=== PATIENT | female | born 1980 | race Two or more races ===

== ENCOUNTER 2024-11-04 14:34 | Inpatient (IN) | payer OTHER ==
[~2024-11-04] VITALS: Ht 160 cm; Wt 34.0 kg
[2024-11-04] VITALS (7 sets, daily range): BP systolic 144–156; BP diastolic 103–120; TEMP 98; O2SAT 94–99
[2024-11-04] MEDS: IV NS 0.9% 1,000 ML BAG IV ONE (15:07)
[2024-11-04] MEDS ORDERED: ACETAMINOPHEN ES 500 MG TABLET ONE (15:09)
[2024-11-04] MEDS: ACETAMINOPHEN ES 500 MG TABLET PO ONE (15:16)
[2024-11-04] MEDS: CEFEPIME 1 GM in IV D5W 50 ML IV ONE (15:56)
[2024-11-04] MEDS: VANCOMYCIN 1 GM in IV D5W 250 ML IV ONE (16:09)
[2024-11-04 16:13] LABS: CALCIUM, SERUM 8.0 mg/dL (8.5-10.1); CREATININE 2.0 mg/dL (0.6-1.3); SODIUM SERUM 129 mmol/L (136-145); UREA NITROGEN, BLOOD 33 mg/dL (7-18)
[2024-11-04 16:19] LABS: ASPARTATE AMINOTRANSFERASE 43 U/L (15-37); TOTAL PROTEIN, SERUM 7.3 g/dL (6.4-8.2)
[2024-11-04 16:38] LABS: ABG BASE EXCESS -1.8 mmol/L (-2.0-3.0); ABG OXYGEN SATURATION 97.5 % (94.0-98.0); ABG PCO2 34.2 mmHg (32.0-45.0); ABG PH 7.430 (7.350-7.450); ABG PO2 106.3 mmHg (83.0-108.0); ABG TOTAL HEMOGLOBIN 7.8 G/dL (12.0-16.0); FRACTIONATED INSPIRED OXYGEN 45.0 %; SET RATE, BG 26.0
[2024-11-04 16:48] LABS: PLATELET COUNT (AUTO) 618 K/uL (150-450); RED BLOOD CELL COUNT(AUTO) 5.45 MIL/uL (4.0-5.2); RED CELL DISTRIBUTION WIDTH 27.0 % (11.5-15.0); WHITE BLOOD COUNT (AUTO) 15.0 K/uL (4.3-11.0)
[2024-11-04] MEDS ORDERED: DOSING PER PHARMACY-CEFEPIME IVPB XX PRN (17:30)
[2024-11-04] MEDS ORDERED: ACETAMINOPHEN 325 MG TABLET PO PRN (17:30)
[2024-11-04] MEDS ORDERED: DOSING PER PHARMACY-VANCOMYCIN IV XX PRN (17:30)
[2024-11-04] MEDS ORDERED: MAGNESIUM HYDROXIDE 30 ML UDC PO PRN (17:30)
[2024-11-04] MEDS ORDERED: IV NS 0.9% 1,000 ML IV PRN (17:30)
[2024-11-04] MEDS ORDERED: IPRATROPIUM NEB FS 0.5 MG/2.5 ML AMPUL.NEB NEB PRN (17:30)
[2024-11-04 17:34] LABS: EOSINOPHILS % (MANUAL) 1 % (0-4); LYMPHOCYTES % (MANUAL) 5 % (16-48); MONOCYTES % (MANUAL) 5 % (0-11.0); NEUTROPHILS % (MANUAL) 89 (42-76); PLATELET ESTIMATE INCREASED
[2024-11-04] MEDS: HEPARIN SODIUM, PORCINE 5000 UNITS/1 ML VIAL SQ SCH (20:51)
[2024-11-04] MEDS ORDERED: FUROSEMIDE 20 MG/2 ML VIAL IV SCH (21:00)
[2024-11-04] MEDS: LORAZEPAM INJ 2 MG/ML VIAL IV PRN (23:20)
[2024-11-05] VITALS (34 sets, daily range): BP systolic 123–156; BP diastolic 94–116; TEMP 97.4–100.1; O2SAT 95–100
[2024-11-05] MEDS ORDERED: NICOTINE PATCH (21MG) 21 MG PATCH.TD24 TD SCH (00:30)
[2024-11-05 00:37] LABS: ABG BASE EXCESS -2.1 mmol/L (-2.0-3.0); ABG OXYGEN SATURATION 99.7 % (94.0-98.0); ABG PCO2 40.5 mmHg (32.0-45.0); ABG PH 7.372 (7.350-7.450); ABG PO2 249.5 mmHg (83.0-108.0); ABG TOTAL HEMOGLOBIN 8.9 G/dL (12.0-16.0); SET RATE, BG 24.0; SITE, ABG LEFT HEEL
[2024-11-05] MEDS: NICOTINE PATCH (21MG) 21 MG PATCH.TD24 TD ONE (00:40)
[2024-11-05 04:41] LABS: PLATELET COUNT (AUTO) 658 K/uL (150-450); RED BLOOD CELL COUNT(AUTO) 5.94 MIL/uL (4.0-5.2); RED CELL DISTRIBUTION WIDTH 27.1 % (11.5-15.0); WHITE BLOOD COUNT (AUTO) 16.0 K/uL (4.3-11.0)
[2024-11-05 05:02] LABS: ASPARTATE AMINOTRANSFERASE 32 U/L (15-37); CALCIUM, SERUM 8.6 mg/dL (8.5-10.1); CREATININE 2.5 mg/dL (0.6-1.3); PHOSPHORUS 5.6 mg/dL (2.5-4.9); SODIUM SERUM 134 mmol/L (136-145); TOTAL PROTEIN, SERUM 7.6 g/dL (6.4-8.2); UREA NITROGEN, BLOOD 37 mg/dL (7-18)
[2024-11-05 05:25] LABS: LYMPHOCYTES % (MANUAL) 6 % (16-48); MONOCYTES % (MANUAL) 2 % (0-11.0); NEUTROPHILS % (MANUAL) 92 (42-76)
[2024-11-05 05:26] LABS: PLATELET ESTIMATE INCREASED
[2024-11-05 05:28] LABS: NT-PRO BNP > 25000 pg/mL (0-125)
[2024-11-05 05:32] LABS: ABG BASE EXCESS -3.0 mmol/L (-2.0-3.0); ABG OXYGEN SATURATION 96.6 % (94.0-98.0); ABG PCO2 33.7 mmHg (32.0-45.0); ABG PH 7.415 (7.350-7.450); ABG PO2 88.9 mmHg (83.0-108.0); ABG TOTAL HEMOGLOBIN 8.5 G/dL (12.0-16.0); SET RATE, BG 24.0
[2024-11-05] MEDS ORDERED: LEVALBUTEROL HCL NEB 1.25 MG/0.5 ML VIAL.NEB NEB PRN (08:30)
[2024-11-05] MEDS ORDERED: IPRATROPIUM NEB FS 0.5 MG/2.5 ML AMPUL.NEB NEB PRN (08:30)
[2024-11-05] MEDS: PANTOPRAZOLE 40 MG VIAL IV SCH (08:35)
[2024-11-05 09:29] LABS: ABG BASE EXCESS -4.8 mmol/L (-2.0-3.0); ABG OXYGEN SATURATION 96.5 % (94.0-98.0); ABG PCO2 32.2 mmHg (32.0-45.0); ABG PH 7.398 (7.350-7.450); ABG PO2 92.7 mmHg (83.0-108.0); ABG TOTAL HEMOGLOBIN 8.5 G/dL (12.0-16.0); FRACTIONATED INSPIRED OXYGEN 50.0 %; SET RATE, BG 24.0; SITE, ABG RIGHT RADIAL
[2024-11-05 10:14] LABS: IRON, SERUM 8.0 ug/dl (50-175)
[2024-11-05] MEDS: FUROSEMIDE 40 MG/4 ML VIAL IV SCH (10:59)
[2024-11-05] MEDS: IPRATROPIUM NEB FS 0.5 MG/2.5 ML AMPUL.NEB NEB SCH (12:00)
[2024-11-05] MEDS: ACETAMINOPHEN 650 MG/20.3 ML UDC NG PRN (12:02)
[2024-11-05] MEDS: FAMOTIDINE/PF INJ 20 MG/2 ML VIAL IV SCH (12:24)
[2024-11-05] MEDS: LEVALBUTEROL HCL NEB 1.25 MG/0.5 ML VIAL.NEB NEB SCH (14:34)
[2024-11-05] MEDS: VANCOMYCIN 750 MG in IV D5W 250 ML IV SCH (15:26)
[2024-11-05 15:47] LABS: CALCIUM, SERUM 8.6 mg/dL (8.5-10.1); CREATININE 2.6 mg/dL (0.6-1.3); SODIUM SERUM 134.0 mmol/L (136-145); UREA NITROGEN, BLOOD 45.0 mg/dL (7-18)
[2024-11-05] MEDS ORDERED: VANCOMYCIN 1 GM in IV D5W 250ml IV SCH (16:00)
[2024-11-05 16:01] LABS: CREATININE, URINE 76.7 MG/DL (30.0-125.0); URINE SODIUM, RANDOM 72.0 mmol/l (40-220); URINE TOTAL PROTEIN 204.4 mg/dL (0-11.9)
[2024-11-05 16:04] LABS: APPEARANCE,URINE SLIGHTLY CLOUDY (CLEAR); BLOOD, URINE 2+ Ery/uL (NEGATIVE); LEUKOCYTE ESTERASE ,URINE NEGATIVE (NEGATIVE); NITRITE, URINE NEGATIVE (NEGATIVE); UGLUCOSE NEGATIVE (NEGATIVE)
[2024-11-05 16:16] LABS: SQUAMOUS EPITHELIAL CELL,UR Few /HPF (None Seen)
[2024-11-05 16:17] LABS: ADD URINE CULTURE NO; URINE AMORPHOUS URATE Moderate /HPF (None Seen)
[2024-11-05] MEDS: CEFEPIME 2 GM in IV D5W 100 ML IV SCH (16:25)
[2024-11-05 17:00] LABS: EOSINOPHIL,URINE None Seen
[2024-11-05] MEDS ORDERED: CEFEPIME 1 GM in IV D5W 50 ML IV SCH (17:00)
[2024-11-05 17:41] LABS: FIBRINOGEN ACTIVITY 338.0 Mg/dL (213-485); INR 1.15 (0.91-1.10)
[2024-11-06] VITALS (52 sets, daily range): BP systolic 125–155; BP diastolic 68–113; TEMP 97.4–99; O2SAT 96–100
[2024-11-06 02:57] LABS: ABG BASE EXCESS -11.3 mmol/L (-2.0-3.0); ABG OXYGEN SATURATION 92.7 % (94.0-98.0); ABG PCO2 37.9 mmHg (32.0-45.0); ABG PH 7.227 (7.350-7.450); ABG PO2 83.7 mmHg (83.0-108.0); ABG TOTAL HEMOGLOBIN 9.2 G/dL (12.0-16.0); SET RATE, BG 24.0; SITE, ABG RIGHT BRACHIAL
[2024-11-06] MEDS: FUROSEMIDE 40 MG/4 ML VIAL ONE (03:29)
[2024-11-06] MEDS: ALBUTEROL FS 2.5 MG/0.5 ML VIAL.NEB NEB ONE (03:32)
[2024-11-06] MEDS: FUROSEMIDE 40 MG/4 ML VIAL IV ONE (03:38)
[2024-11-06] MEDS: ALBUTEROL FS 2.5 MG/3 ML VIAL.NEB NEB PRN (03:45)
[2024-11-06 04:56] LABS: FIBRINOGEN ACTIVITY 434.0 Mg/dL (213-485); INR 1.19 (0.91-1.10)
[2024-11-06 04:56] LABS: PLATELET COUNT (AUTO) 667 K/uL (150-450); RED BLOOD CELL COUNT(AUTO) 5.69 MIL/uL (4.0-5.2); RED CELL DISTRIBUTION WIDTH 27.8 % (11.5-15.0); WHITE BLOOD COUNT (AUTO) 15.3 K/uL (4.3-11.0)
[2024-11-06 05:02] LABS: ASPARTATE AMINOTRANSFERASE 32.0 U/L (15-37); CALCIUM, SERUM 8.6 mg/dL (8.5-10.1); CREATININE 3.5 mg/dL (0.6-1.3); SODIUM SERUM 134.0 mmol/L (136-145); TOTAL PROTEIN, SERUM 7.9 g/dL (6.4-8.2); UREA NITROGEN, BLOOD 57.0 mg/dL (7-18)
[2024-11-06 05:35] LABS: PHOSPHORUS 10.1 mg/dL (2.5-4.9)
[2024-11-06 05:49] LABS: CREATINE KINASE, TOTAL 25.0 U/L (26-192)
[2024-11-06 05:50] LABS: BAND % (MANUAL) 5 % (0.0-5.0); BASOPHILS % (MANUAL) 1 % (0.0-2.0); LYMPHOCYTES % (MANUAL) 7 % (16-48); METAMYELOCYTES % 1 % (0-0); MONOCYTES % (MANUAL) 4 % (0-11.0); NEUTROPHILS % (MANUAL) 82 (42-76); NUCLEATED RED BLOOD CELLS 1.0 /100WBC (0.0-0.0); PLATELET ESTIMATE INCREASED
[2024-11-06 06:32] LABS: ABG BASE EXCESS -8.0 mmol/L (-2.0-3.0); ABG OXYGEN SATURATION 93.8 % (94.0-98.0); ABG PCO2 31.0 mmHg (32.0-45.0); ABG PH 7.349 (7.350-7.450); ABG PO2 83.0 mmHg (83.0-108.0); ABG TOTAL HEMOGLOBIN 8.7 G/dL (12.0-16.0); SET RATE, BG 24.0; SITE, ABG RIGHT BRACHIAL
[2024-11-06 08:13] LABS: FREE KAPPA LT CHAINS SERUM 291.5 mg/L (3.3-19.4); FREE LAMBDA LT CHAIN SERUM 225.4 mg/L (5.7-26.3); IMMUNOGLOBULIN A, SERUM 345 mg/dL (87-352); IMMUNOGLOBULIN M, SERUM 320 mg/dL (26-217); KAPPA/LAMBDA RATIO SERUM 1.29 (0.26-1.65)
[2024-11-06 09:07] LABS: FOLIC ACID 4.8 ng/mL (>3.0)
[2024-11-06] MEDS: DOBUTamine 500 MG in IV D5W 210 ML IV SCH (09:52)
[2024-11-06] MEDS: PROPOFOL 100 ML IV PRN (09:53)
[2024-11-06] MEDS ORDERED: ETOMIDATE 2 MG/ML VIAL IV ONE (13:32)
[2024-11-06] MEDS ORDERED: SUCCINYLCHOLINE CHLORIDE 20 MG/ML VIAL IV ONE (13:32)
[2024-11-06] MEDS: BUMETANIDE INJ 4 MG in IV NS 0.9% 24 ML IV ONE (16:25)
[2024-11-06 17:04] LABS: PLATELET COUNT (AUTO) 563 K/uL (150-450); RED BLOOD CELL COUNT(AUTO) 5.69 MIL/uL (4.0-5.2); RED CELL DISTRIBUTION WIDTH 27.7 % (11.5-15.0); WHITE BLOOD COUNT (AUTO) 14.6 K/uL (4.3-11.0)
[2024-11-06 17:21] LABS: ASPARTATE AMINOTRANSFERASE 27.0 U/L (15-37); CALCIUM, SERUM 6.2 mg/dL (8.5-10.1); CREATININE 3.1 mg/dL (0.6-1.3); PHOSPHORUS 6.7 mg/dL (2.5-4.9); SODIUM SERUM 139.0 mmol/L (136-145); TOTAL PROTEIN, SERUM 6.0 g/dL (6.4-8.2); UREA NITROGEN, BLOOD 63.0 mg/dL (7-18)
[2024-11-06 18:03] LABS: BAND % (MANUAL) 2 % (0.0-5.0); METAMYELOCYTES % 1 % (0-0); MONOCYTES % (MANUAL) 4 % (0-11.0)
[2024-11-06 18:04] LABS: LYMPHOCYTES % (MANUAL) 8 % (16-48); NEUTROPHILS % (MANUAL) 85 (42-76); PLATELET ESTIMATE INCREASED
[2024-11-06] MEDS: Magnesium 1GM/D5W 100ML PREMIX 100 ML IV SCH (18:39)
[2024-11-06] MEDS: SODIUM BICARBONATE SYR 50 MEQ/50 ML DISP.SYRIN IV ONE (21:01)
[2024-11-07] VITALS (87 sets, daily range): BP systolic 108–178; BP diastolic 85–106; TEMP 98.9–100.2; O2SAT 90–100
[2024-11-07] MEDS ORDERED: VANCOMYCIN 750 MG in IV D5W 250 ML IV SCH (04:00)
[2024-11-07 05:35] LABS: PLATELET COUNT (AUTO) 688 K/uL (150-450); RED BLOOD CELL COUNT(AUTO) 5.47 MIL/uL (4.0-5.2); RED CELL DISTRIBUTION WIDTH 27.9 % (11.5-15.0); WHITE BLOOD COUNT (AUTO) 14.0 K/uL (4.3-11.0)
[2024-11-07 05:45] LABS: CALCIUM, SERUM 7.1 mg/dL (8.5-10.1); CREATININE 4.4 mg/dL (0.6-1.3); SODIUM SERUM 138.0 mmol/L (136-145)
[2024-11-07 06:00] LABS: FIBRINOGEN ACTIVITY 329.0 Mg/dL (213-485); INR 1.14 (0.91-1.10)
[2024-11-07 06:22] LABS: PHOSPHORUS 8.2 mg/dL (2.5-4.9); UREA NITROGEN, BLOOD 88.0 mg/dL (7-18)
[2024-11-07] MEDS: INSULIN REGULAR, HUMAN 100 UNIT/ML 10 ML VIAL IV ONE (08:30)
[2024-11-07 08:31] LABS: EOSINOPHILS % (MANUAL) 2 % (0-4); LYMPHOCYTES % (MANUAL) 4 % (16-48); MONOCYTES % (MANUAL) 15 % (0-11.0); NEUTROPHILS % (MANUAL) 79 (42-76)
[2024-11-07 08:32] LABS: PLATELET ESTIMATE INCREASED
[2024-11-07] MEDS: DEXTROSE 50%-WATER 50 ML DISP.SYRIN IVP ONE (09:35)
[2024-11-07] MEDS: SODIUM BICARBONATE SYR 50 MEQ/50 ML DISP.SYRIN IV ONE (09:36)
[2024-11-07 10:25] LABS: ABG BASE EXCESS -5.2 mmol/L (-2.0-3.0); ABG OXYGEN SATURATION 96.0 % (94.0-98.0); ABG PCO2 32.2 mmHg (32.0-45.0); ABG PH 7.392 (7.350-7.450); ABG PO2 94.9 mmHg (83.0-108.0); ABG TOTAL HEMOGLOBIN 7.5 G/dL (12.0-16.0); FRACTIONATED INSPIRED OXYGEN 70.0 %; SET RATE, BG 20.0; VT, ABG 425 mL
[2024-11-07 11:11] LABS: PTH, INTACT 149 pg/mL (15-65)
[2024-11-07] MEDS: PROPOFOL 100 ML IV PRN ×2 (11:58→19:00)
[2024-11-07] MEDS: VANCOMYCIN POST DIALYSIS 500MG IV PRN (19:11)
[2024-11-08] VITALS (95 sets, daily range): BP systolic 116–141; BP diastolic 76–105; TEMP 98–99.5; O2SAT 60–100
[2024-11-08 05:12] LABS: PLATELET COUNT (AUTO) 617 K/uL (150-450); RED BLOOD CELL COUNT(AUTO) 5.01 MIL/uL (4.0-5.2); RED CELL DISTRIBUTION WIDTH 27.2 % (11.5-15.0); WHITE BLOOD COUNT (AUTO) 18.5 K/uL (4.3-11.0)
[2024-11-08 05:18] LABS: CALCIUM, SERUM 7.6 mg/dL (8.5-10.1); CREATININE 4.1 mg/dL (0.6-1.3); SODIUM SERUM 138.0 mmol/L (136-145); UREA NITROGEN, BLOOD 68.0 mg/dL (7-18)
[2024-11-08 05:24] LABS: PHOSPHORUS 7.0 mg/dL (2.5-4.9)
[2024-11-08 06:12] LABS: NUCLEATED RED BLOOD CELLS 10.0 /100WBC (0.0-0.0)
[2024-11-08 06:13] LABS: EOSINOPHILS % (MANUAL) 2 % (0-4); LYMPHOCYTES % (MANUAL) 10 % (16-48); METAMYELOCYTES % 1 % (0-0)
[2024-11-08 06:14] LABS: MONOCYTES % (MANUAL) 13 % (0-11.0); NEUTROPHILS % (MANUAL) 74 (42-76)
[2024-11-08 06:15] LABS: PLATELET ESTIMATE INCREASED
[2024-11-08] MEDS: FENTANYL CITRAT IV 2,500 MCG in IV NS 0.9% 200 ML IV PRN ×2 (09:57→20:00)
[2024-11-08] MEDS ORDERED: MIDAZOLAM HCL 200 MG in IV NS 0.9% 60 ML IV PRN (10:00)
[2024-11-08] MEDS: MIDAZOLAM HCL 100 MG in IV NS 0.9% 80 ML IV PRN (11:18)
[2024-11-08 16:50] LABS: ABG BASE EXCESS -5.5 mmol/L (-2.0-3.0); ABG OXYGEN SATURATION 98.9 % (94.0-98.0); ABG PCO2 30.1 mmHg (32.0-45.0); ABG PH 7.408 (7.350-7.450); ABG PO2 171.0 mmHg (83.0-108.0); ABG TOTAL HEMOGLOBIN 7.0 G/dL (12.0-16.0); FRACTIONATED INSPIRED OXYGEN 60.0 %; PEEP,BG 8 cm H2O; SET RATE, BG 20.0; SITE, ABG LEFT RADIAL; VT, ABG 400 mL
[2024-11-08] MEDS: PRECEDEX 400 MCG/100 ML BOTTLE 100 ML IV PRN (18:02)
[2024-11-08] MEDS: LORAZEPAM INJ 2 MG/ML VIAL IV PRN (21:51)
[2024-11-09] VITALS (94 sets, daily range): BP systolic 111–137; BP diastolic 79–101; TEMP 98.2–100.3; O2SAT 94–97
[2024-11-09] MEDS ORDERED: MIDAZOLAM 50 MG/10 ML VIAL ONE (00:12)
[2024-11-09] MEDS: MIDAZOLAM HCL 50 MG in IV NS 0.9% 40 ML IV ONE (01:08)
[2024-11-09 02:07] LABS: HEPATITIS B SURFACE AB (QUAL) Non Reactive (.)
[2024-11-09 04:55] LABS: ASPARTATE AMINOTRANSFERASE 34.0 U/L (15-37); CALCIUM, SERUM 7.8 mg/dL (8.5-10.1); CREATININE 5.5 mg/dL (0.6-1.3); PHOSPHORUS 7.8 mg/dL (2.5-4.9); SODIUM SERUM 137.0 mmol/L (136-145); TOTAL PROTEIN, SERUM 7.2 g/dL (6.4-8.2)
[2024-11-09 05:13] LABS: UREA NITROGEN, BLOOD 96.0 mg/dL (7-18)
[2024-11-09 07:27] LABS: PLATELET COUNT (AUTO) 555 K/uL (150-450); RED BLOOD CELL COUNT(AUTO) 4.86 MIL/uL (4.0-5.2); RED CELL DISTRIBUTION WIDTH 26.5 % (11.5-15.0); WHITE BLOOD COUNT (AUTO) 21.3 K/uL (4.3-11.0)
[2024-11-09] MEDS ORDERED: DEXTROSE 50%-WATER 50 ML DISP.SYRIN IV PRN (10:00)
[2024-11-09] MEDS: BLOOD SUGAR DIAGNOSTIC 1 EACH STRIP IN SCH (10:35)
[2024-11-09] MEDS: DEXTROSE 50%-WATER 50 ML DISP.SYRIN IVP ONE (10:35)
[2024-11-09] MEDS: SODIUM BICARBONATE SYR 50 MEQ/50 ML DISP.SYRIN IV ONE (10:35)
[2024-11-09] MEDS: INSULIN REGULAR, HUMAN 100 UNIT/ML 10 ML VIAL IV ONE (11:16)
[2024-11-09 11:18] LABS: CALCIUM, SERUM 7.4 mg/dL (8.5-10.1); CREATININE 6.0 mg/dL (0.6-1.3); SODIUM SERUM 139.0 mmol/L (136-145)
[2024-11-09] MEDS: ACETAMINOPHEN 650 MG/SUPP.RECT RC PRN (11:27)
[2024-11-09 11:48] LABS: UREA NITROGEN, BLOOD 116.0 mg/dL (7-18)
[2024-11-09] MEDS: NEPRO 1,000 ML BOTTLE GT PRN (16:28)
[2024-11-09 17:38] LABS: LYMPHOCYTES % (MANUAL) 4 % (16-48); NEUTROPHILS % (MANUAL) 80 (42-76)
[2024-11-09 17:57] LABS: MONOCYTES % (MANUAL) 16 % (0-11.0); PLATELET ESTIMATE INCREASED
[2024-11-09] MEDS: CEFEPIME 1 GM in IV D5W 50 ML IV SCH (17:57)
[2024-11-09] MEDS: MIDAZOLAM HCL 100 MG in IV NS 0.9% 80 ML IV PRN (20:58)
[2024-11-10] VITALS (63 sets, daily range): BP systolic 122–148; BP diastolic 98–111; TEMP 97.8–99.5; O2SAT 95–99
[2024-11-10 04:58] LABS: PLATELET COUNT (AUTO) 432 K/uL (150-450); RED BLOOD CELL COUNT(AUTO) 5.29 MIL/uL (4.0-5.2); RED CELL DISTRIBUTION WIDTH 34.2 % (11.5-15.0); WHITE BLOOD COUNT (AUTO) 27.7 K/uL (4.3-11.0)
[2024-11-10 05:16] LABS: FIBRINOGEN ACTIVITY 280.0 Mg/dL (213-485); INR 1.07 (0.91-1.10)
[2024-11-10 05:42] LABS: ASPARTATE AMINOTRANSFERASE 55.0 U/L (15-37); CALCIUM, SERUM 8.6 mg/dL (8.5-10.1); CREATININE 3.5 mg/dL (0.6-1.3); PHOSPHORUS 6.8 mg/dL (2.5-4.9); SODIUM SERUM 138.0 mmol/L (136-145); TOTAL PROTEIN, SERUM 7.3 g/dL (6.4-8.2); UREA NITROGEN, BLOOD 54.0 mg/dL (7-18)
[2024-11-10 05:45] LABS: LYMPHOCYTES % (MANUAL) 44 % (16-48); MONOCYTES % (MANUAL) 4 % (0-11.0); NEUTROPHILS % (MANUAL) 52 (42-76); NUCLEATED RED BLOOD CELLS 28.0 /100WBC (0.0-0.0); PLATELET ESTIMATE INCREASED
[2024-11-10 08:58] LABS: ABG BASE EXCESS 0.2 mmol/L (-2.0-3.0); ABG OXYGEN SATURATION 92.9 % (94.0-98.0); ABG PCO2 33.8 mmHg (32.0-45.0); ABG PH 7.463 (7.350-7.450); ABG PO2 71.8 mmHg (83.0-108.0); ABG TOTAL HEMOGLOBIN 9.2 G/dL (12.0-16.0); FRACTIONATED INSPIRED OXYGEN 55.0 %; PEEP,BG 5 cm H2O; SET RATE, BG 20.0; VT, ABG 400 mL
[2024-11-10 09:02] LABS: SITE, ABG RIGHT RADIAL
[2024-11-11] VITALS (46 sets, daily range): BP systolic 126–153; BP diastolic 95–110; TEMP 98.1–100.4; O2SAT 55–100
[2024-11-11 03:07] LABS: HEPATITIS B CORE AB, IgM Negative (Negative); HEPATITIS B CORE AB, TOTAL Negative (Negative); HEPATITIS B SURFACE AB (QUAL) Non Reactive (.)
[2024-11-11 04:10] LABS: PLATELET COUNT (AUTO) 397 K/uL (150-450); RED BLOOD CELL COUNT(AUTO) 5.34 MIL/uL (4.0-5.2); RED CELL DISTRIBUTION WIDTH 35.4 % (11.5-15.0); WHITE BLOOD COUNT (AUTO) 28.9 K/uL (4.3-11.0)
[2024-11-11 04:19] LABS: CALCIUM, SERUM 8.8 mg/dL (8.5-10.1); CREATININE 2.9 mg/dL (0.6-1.3); SODIUM SERUM 139.0 mmol/L (136-145); UREA NITROGEN, BLOOD 64.0 mg/dL (7-18)
[2024-11-11 04:37] LABS: FIBRINOGEN ACTIVITY 321.0 Mg/dL (213-485); INR 1.13 (0.91-1.10)
[2024-11-11 05:39] LABS: NUCLEATED RED BLOOD CELLS 27.0 /100WBC (0.0-0.0)
[2024-11-11 05:40] LABS: NEUTROPHILS % (MANUAL) 90 (42-76)
[2024-11-11 05:41] LABS: LYMPHOCYTES % (MANUAL) 5 % (16-48); MONOCYTES % (MANUAL) 5 % (0-11.0)
[2024-11-11 05:45] LABS: PLATELET ESTIMATE INCREASED
[2024-11-11] MEDS: MIDAZOLAM HCL 100 MG in IV NS 0.9% 80 ML IV PRN (20:36)
[2024-11-12] VITALS (77 sets, daily range): BP systolic 114–141; BP diastolic 86–105; TEMP 97.7–102.8; O2SAT 95–100
[2024-11-12 05:15] LABS: PLATELET COUNT (AUTO) 340 K/uL (150-450); RED BLOOD CELL COUNT(AUTO) 5.08 MIL/uL (4.0-5.2); RED CELL DISTRIBUTION WIDTH 35.2 % (11.5-15.0)
[2024-11-12 05:26] LABS: WHITE BLOOD COUNT (AUTO) 33.7 K/uL (4.3-11.0)
[2024-11-12 05:30] LABS: FIBRINOGEN ACTIVITY 439.0 Mg/dL (213-485); INR 1.21 (0.91-1.10)
[2024-11-12 05:43] LABS: ASPARTATE AMINOTRANSFERASE 61.0 U/L (15-37); CALCIUM, SERUM 9.2 mg/dL (8.5-10.1); CREATININE 2.9 mg/dL (0.6-1.3); PHOSPHORUS 5.2 mg/dL (2.5-4.9); SODIUM SERUM 140.0 mmol/L (136-145); TOTAL PROTEIN, SERUM 7.4 g/dL (6.4-8.2); UREA NITROGEN, BLOOD 67.0 mg/dL (7-18)
[2024-11-12 05:53] LABS: NEUTROPHILS % (MANUAL) 91 (42-76)
[2024-11-12 05:54] LABS: LYMPHOCYTES % (MANUAL) 7 % (16-48); MONOCYTES % (MANUAL) 2 % (0-11.0); NUCLEATED RED BLOOD CELLS 83.0 /100WBC (0.0-0.0)
[2024-11-12 05:55] LABS: PLATELET ESTIMATE ADEQUATE
[2024-11-12] MEDS: PANTOPRAZOLE 40 MG/PACK PACK GT SCH (10:56)
[2024-11-12] MEDS: FAMOTIDINE (20 MG) 20 MG TABLET GT SCH (10:57)
[2024-11-13] VITALS (44 sets, daily range): BP systolic 95–124; BP diastolic 67–90; TEMP 98.4–100.8; O2SAT 98–100
[2024-11-13 04:07] LABS: HEPATITIS B SURFACE AB (QUAL) Non Reactive (.)
[2024-11-13 04:37] LABS: ASPARTATE AMINOTRANSFERASE 59.0 U/L (15-37); CALCIUM, SERUM 9.0 mg/dL (8.5-10.1); CREATININE 2.7 mg/dL (0.6-1.3); PHOSPHORUS 5.4 mg/dL (2.5-4.9); SODIUM SERUM 140.0 mmol/L (136-145); TOTAL PROTEIN, SERUM 7.3 g/dL (6.4-8.2); UREA NITROGEN, BLOOD 65.0 mg/dL (7-18)
[2024-11-13 04:41] LABS: PLATELET COUNT (AUTO) 318 K/uL (150-450); RED BLOOD CELL COUNT(AUTO) 4.82 MIL/uL (4.0-5.2); RED CELL DISTRIBUTION WIDTH 37.7 % (11.5-15.0)
[2024-11-13 04:46] LABS: ASPARTATE AMINOTRANSFERASE 60.0 U/L (15-37); TOTAL PROTEIN, SERUM 7.2 g/dL (6.4-8.2)
[2024-11-13 04:53] LABS: WHITE BLOOD COUNT (AUTO) 38.1 K/uL (4.3-11.0)
[2024-11-13 05:02] LABS: NUCLEATED RED BLOOD CELLS 74.0 /100WBC (0.0-0.0)
[2024-11-13 05:03] LABS: LYMPHOCYTES % (MANUAL) 3 % (16-48); MONOCYTES % (MANUAL) 3 % (0-11.0); NEUTROPHILS % (MANUAL) 94 (42-76); PLATELET ESTIMATE ADEQUATE
[2024-11-13 06:07] LABS: COMPLEMENT C3, SERUM 139 mg/dL (82-167); COMPLEMENT C4, SERUM <2 mg/dL (12-38)
[2024-11-13 12:07] LABS: *ANA ANTI-CENTROMERE B AB <0.2 AI (0.0-0.9); *ANA ANTI-DNA(DS) AB, QN 24 IU/mL (0-9); *ANA ANTI-JO-1 <0.2 AI (0.0-0.9); *ANA ANTICHROMATIN ANTIBODY >8.0 AI (0.0-0.9); *ANA RNP ANTIBODIES 0.2 AI (0.0-0.9); *ANA SJOGREN'S ANTI-SS-A 0.2 AI (0.0-0.9); *ANA SJOGREN'S ANTI-SS-B <0.2 AI (0.0-0.9); *ANAANTI-SCLERODERMA-70 AB 0.2 AI (0.0-0.9); *ANASMITH AB <0.2 AI (0.0-0.9)
[2024-11-14] VITALS (40 sets, daily range): BP systolic 81–117; BP diastolic 58–87; TEMP 98.4–100.8; O2SAT 100
[2024-11-14 04:31] LABS: PLATELET COUNT (AUTO) 328 K/uL (150-450); RED BLOOD CELL COUNT(AUTO) 4.90 MIL/uL (4.0-5.2); RED CELL DISTRIBUTION WIDTH 39.0 % (11.5-15.0)
[2024-11-14 04:47] LABS: CALCIUM, SERUM 9.2 mg/dL (8.5-10.1); CREATININE 2.3 mg/dL (0.6-1.3); PHOSPHORUS 4.8 mg/dL (2.5-4.9); SODIUM SERUM 140.0 mmol/L (136-145); UREA NITROGEN, BLOOD 58.0 mg/dL (7-18)
[2024-11-14 05:08] LABS: FIBRINOGEN ACTIVITY 651.0 Mg/dL (213-485); INR 1.18 (0.91-1.10)
[2024-11-14 05:33] LABS: WHITE BLOOD COUNT (AUTO) 34.2 K/uL (4.3-11.0)
[2024-11-14 06:01] LABS: NEUTROPHILS % (MANUAL) 90 (42-76); NUCLEATED RED BLOOD CELLS 30.0 /100WBC (0.0-0.0)
[2024-11-14 06:02] LABS: EOSINOPHILS % (MANUAL) 1 % (0-4); LYMPHOCYTES % (MANUAL) 6 % (16-48); MONOCYTES % (MANUAL) 3 % (0-11.0); PLATELET ESTIMATE ADEQUATE
[2024-11-14 06:07] LABS: *HGBFRC HEMOGLOBIN A 95.2 % (96.4-98.8); *HGBFRC HEMOGLOBIN A2 4.8 % (1.8-3.2); *HGBFRC HEMOGLOBIN F 0.0 % (0.0-2.0); *HGBFRC HEMOGLOBIN S 0.0 % (0.0)
[2024-11-14] MEDS: BISACODYL SUPP (10 MG) 10 MG/SUPP.RECT SUPP.RECT RC PRN (09:44)
[2024-11-14] MEDS: POLYETHYLENE GLYCOL 3350 17 GM POWD.PACK NG SCH (09:44)
[2024-11-14] MEDS: DOCUSATE SODIUM LIQ 100 MG/10 ML UDC NG SCH (09:44)
[2024-11-14] MEDS: MIDAZOLAM HCL 100 MG in IV NS 0.9% 80 ML IV PRN (11:48)
[2024-11-14] MEDS: ALBUMIN 25% 25 GM in PREMIX 1 EA IV PRN (12:14)
[2024-11-15] VITALS (47 sets, daily range): BP systolic 108–130; BP diastolic 73–99; TEMP 97.4–100.2; O2SAT 100
[2024-11-15] MEDS: METOCLOPRAMIDE HCL 10 MG/2 ML VIAL IV SCH (00:20)
[2024-11-15 03:24] LABS: PLATELET COUNT (AUTO) 306 K/uL (150-450); RED BLOOD CELL COUNT(AUTO) 4.92 MIL/uL (4.0-5.2); RED CELL DISTRIBUTION WIDTH 40.9 % (11.5-15.0)
[2024-11-15 03:53] LABS: ASPARTATE AMINOTRANSFERASE 46.0 U/L (15-37); CALCIUM, SERUM 9.3 mg/dL (8.5-10.1); CREATININE 2.4 mg/dL (0.6-1.3); PHOSPHORUS 5.5 mg/dL (2.5-4.9); SODIUM SERUM 138.0 mmol/L (136-145); TOTAL PROTEIN, SERUM 7.6 g/dL (6.4-8.2); UREA NITROGEN, BLOOD 56.0 mg/dL (7-18)
[2024-11-15 03:55] LABS: INR 1.22 (0.91-1.10)
[2024-11-15 04:05] LABS: FIBRINOGEN ACTIVITY 831.0 Mg/dL (213-485); WHITE BLOOD COUNT (AUTO) 32.2 K/uL (4.3-11.0)
[2024-11-15 04:09] LABS: NEUTROPHILS % (MANUAL) 87 (42-76)
[2024-11-15 04:11] LABS: EOSINOPHILS % (MANUAL) 1 % (0-4); LYMPHOCYTES % (MANUAL) 6 % (16-48); MONOCYTES % (MANUAL) 6 % (0-11.0)
[2024-11-15 04:13] LABS: PLATELET ESTIMATE ADEQUATE
[2024-11-15 04:28] LABS: NUCLEATED RED BLOOD CELLS 42.0 /100WBC (0.0-0.0)
[2024-11-15] MEDS: PANTOPRAZOLE 40 MG VIAL IV SCH (09:52)
[2024-11-15 19:08] LABS: *SPE A/G RATIO 0.6 (0.7-1.7); *SPE ALBUMIN 2.5 g/dL (2.9-4.4); *SPE ALPHA-1-GLOBULIN 0.5 g/dL (0.0-0.4); *SPE ALPHA-2-GLOBULIN 0.9 g/dL (0.4-1.0); *SPE BETA GLOBULIN 0.7 g/dL (0.7-1.3); *SPE GLOBULIN, TOTAL 4.1 g/dL (2.2-3.9); *SPE M-SPIKE Not Observed g/dL (Not Observed); *SPE PROTEIN TOTAL 6.6 g/dL (6.0-8.5); *SPEGAMMA GLOBULIN 2.1 g/dL (0.4-1.8)
[2024-11-16] VITALS (40 sets, daily range): BP systolic 84–158; BP diastolic 58–133; TEMP 98.5–100; O2SAT 97–100
[2024-11-16 03:38] LABS: PLATELET COUNT (AUTO) 380 K/uL (150-450); RED BLOOD CELL COUNT(AUTO) 4.62 MIL/uL (4.0-5.2); RED CELL DISTRIBUTION WIDTH 41.1 % (11.5-15.0); WHITE BLOOD COUNT (AUTO) 26.7 K/uL (4.3-11.0)
[2024-11-16 04:27] LABS: INR 1.35 (0.91-1.10)
[2024-11-16 04:45] LABS: FIBRINOGEN ACTIVITY 854.0 Mg/dL (213-485)
[2024-11-16 05:15] LABS: NUCLEATED RED BLOOD CELLS 35.0 /100WBC (0.0-0.0)
[2024-11-16 05:16] LABS: LYMPHOCYTES % (MANUAL) 5 % (16-48); NEUTROPHILS % (MANUAL) 91 (42-76)
[2024-11-16 05:17] LABS: MONOCYTES % (MANUAL) 4 % (0-11.0)
[2024-11-16 05:22] LABS: PLATELET ESTIMATE INCREASED
[2024-11-16] MEDS: DOXYCYCLINE 100 MG in IV D5W 100 ML IV SCH (17:27)
[2024-11-16 18:09] LABS: *SPE A/G RATIO 0.5 (0.7-1.7); *SPE ALBUMIN 2.3 g/dL (2.9-4.4); *SPE ALPHA-1-GLOBULIN 0.5 g/dL (0.0-0.4); *SPE ALPHA-2-GLOBULIN 1.1 g/dL (0.4-1.0); *SPE BETA GLOBULIN 0.8 g/dL (0.7-1.3); *SPE GLOBULIN, TOTAL 5.0 g/dL (2.2-3.9); *SPE M-SPIKE Not Observed g/dL (Not Observed); *SPE PROTEIN TOTAL 7.3 g/dL (6.0-8.5); *SPEGAMMA GLOBULIN 2.5 g/dL (0.4-1.8)
[2024-11-16] MEDS: MEROPENEM 1 G in IV NS 0.9% 100 ML IV SCH (18:34)
[2024-11-17] VITALS (38 sets, daily range): BP systolic 91–141; BP diastolic 57–100; TEMP 98.2–99.7; O2SAT 99–100
[2024-11-17 04:33] LABS: CALCIUM, SERUM 9.5 mg/dL (8.5-10.1); CREATININE 2.4 mg/dL (0.6-1.3); SODIUM SERUM 138.0 mmol/L (136-145); UREA NITROGEN, BLOOD 58.0 mg/dL (7-18)
[2024-11-17 05:21] LABS: PLATELET COUNT (AUTO) 457 K/uL (150-450); RED BLOOD CELL COUNT(AUTO) 4.87 MIL/uL (4.0-5.2); RED CELL DISTRIBUTION WIDTH 40.0 % (11.5-15.0); WHITE BLOOD COUNT (AUTO) 23.9 K/uL (4.3-11.0)
[2024-11-17 05:58] LABS: LYMPHOCYTES % (MANUAL) 5 % (16-48); MONOCYTES % (MANUAL) 4 % (0-11.0); NEUTROPHILS % (MANUAL) 91 (42-76); PLATELET ESTIMATE INCREASED
[2024-11-17 06:01] LABS: NUCLEATED RED BLOOD CELLS 16.0 /100WBC (0.0-0.0)
[2024-11-17 07:08] LABS: *HGBFRC HEMOGLOBIN A 95.4 % (96.4-98.8); *HGBFRC HEMOGLOBIN A2 4.6 % (1.8-3.2); *HGBFRC HEMOGLOBIN F 0.0 % (0.0-2.0); *HGBFRC HEMOGLOBIN S 0.0 % (0.0)
[2024-11-17] MEDS: PANTOPRAZOLE 40 MG/PACK PACK GT SCH (09:08)
[2024-11-17 19:31] LABS: HIV-1/2 ANTIBODY NON REACTIVE (NONREACTIVE)
[2024-11-18] VITALS (73 sets, daily range): BP systolic 79–124; BP diastolic 54–87; TEMP 97.5–102.8; O2SAT 98–100
[2024-11-18 04:22] LABS: CALCIUM, SERUM 9.4 mg/dL (8.5-10.1); CREATININE 3.7 mg/dL (0.6-1.3); SODIUM SERUM 139.0 mmol/L (136-145)
[2024-11-18 04:50] LABS: UREA NITROGEN, BLOOD 101.0 mg/dL (7-18)
[2024-11-18 05:33] LABS: PLATELET COUNT (AUTO) 483 K/uL (150-450); RED BLOOD CELL COUNT(AUTO) 4.39 MIL/uL (4.0-5.2); RED CELL DISTRIBUTION WIDTH 39.4 % (11.5-15.0); WHITE BLOOD COUNT (AUTO) 21.9 K/uL (4.3-11.0)
[2024-11-18 06:01] LABS: NEUTROPHILS % (MANUAL) 90 (42-76)
[2024-11-18 06:02] LABS: EOSINOPHILS % (MANUAL) 1 % (0-4); LYMPHOCYTES % (MANUAL) 3 % (16-48); MONOCYTES % (MANUAL) 6 % (0-11.0); NUCLEATED RED BLOOD CELLS 7.0 /100WBC (0.0-0.0)
[2024-11-18 06:03] LABS: PLATELET ESTIMATE INCREASED
[2024-11-18] MEDS ORDERED: CLONIDINE HCL 0.2MG/24H PTWK 1 EA PATCH TD SCH (08:30)
[2024-11-18] MEDS ORDERED: LORAZEPAM ORAL SOLN 2 MG/ML ORAL.CONC NG SCH (09:00)
[2024-11-18] MEDS: LORAZEPAM 1 MG TABLET NG SCH (09:30)
[2024-11-18] MEDS ORDERED: MEROPENEM 0.5 G in IV NS 0.9% 100 ML IV SCH (14:00)
[2024-11-18] MEDS: MEROPENEM 500 MG in IV NS 0.9% 50 ML IV SCH (15:44)
[2024-11-18] MEDS: EPOETIN ALFA (10,000 UNIT) 10,000 UNIT/ML VIAL SQ SCH (15:45)
[2024-11-18 16:09] LABS: ABG BASE EXCESS 2.4 mmol/L (-2.0-3.0); ABG OXYGEN SATURATION 95.2 % (94.0-98.0); ABG PCO2 32.2 mmHg (32.0-45.0); ABG PH 7.514 (7.350-7.450); ABG PO2 76.8 mmHg (83.0-108.0); ABG TOTAL HEMOGLOBIN 7.6 G/dL (12.0-16.0); FRACTIONATED INSPIRED OXYGEN 40.0 %; PEEP,BG 5 cm H2O; SET RATE, BG 20.0; SITE, ABG RIGHT RADIAL; VT, ABG 400 mL
[2024-11-18] MEDS: CLONIDINE HCL 0.1MG/24H PTWK 1 EA PATCH TD SCH (18:01)
[2024-11-18] MEDS ORDERED: ACETAMINOPHEN 325 MG TABLET PO PRN (19:00)
[2024-11-19] VITALS (45 sets, daily range): BP systolic 87–133; BP diastolic 60–95; TEMP 98.6–100; O2SAT 100
[2024-11-19 04:07] LABS: PLATELET COUNT (AUTO) 493 K/uL (150-450); RED BLOOD CELL COUNT(AUTO) 4.22 MIL/uL (4.0-5.2); RED CELL DISTRIBUTION WIDTH 37.7 % (11.5-15.0); WHITE BLOOD COUNT (AUTO) 13.4 K/uL (4.3-11.0)
[2024-11-19 04:40] LABS: EOSINOPHILS % (MANUAL) 3 % (0-4); LYMPHOCYTES % (MANUAL) 12 % (16-48); MONOCYTES % (MANUAL) 1 % (0-11.0); NEUTROPHILS % (MANUAL) 84 (42-76)
[2024-11-19 04:41] LABS: PLATELET ESTIMATE INCREASED
[2024-11-19 10:14] LABS: ASPARTATE AMINOTRANSFERASE 122.0 U/L (15-37); CALCIUM, SERUM 9.2 mg/dL (8.5-10.1); CREATININE 2.4 mg/dL (0.6-1.3); PHOSPHORUS 5.7 mg/dL (2.5-4.9); SODIUM SERUM 138.0 mmol/L (136-145); TOTAL PROTEIN, SERUM 6.8 g/dL (6.4-8.2); UREA NITROGEN, BLOOD 54.0 mg/dL (7-18)
[2024-11-20] VITALS (60 sets, daily range): BP systolic 80–124; BP diastolic 51–89; TEMP 98.8–100.9; O2SAT 99–100
[2024-11-20 00:03] LABS: OCCULT BLOOD STOOL NEGATIVE (NEGATIVE)
[2024-11-20 04:26] LABS: PLATELET COUNT (AUTO) 527 K/uL (150-450); RED BLOOD CELL COUNT(AUTO) 4.60 MIL/uL (4.0-5.2); RED CELL DISTRIBUTION WIDTH 36.3 % (11.5-15.0); WHITE BLOOD COUNT (AUTO) 20.9 K/uL (4.3-11.0)
[2024-11-20 04:39] LABS: CALCIUM, SERUM 9.0 mg/dL (8.5-10.1); CREATININE 3.3 mg/dL (0.6-1.3); SODIUM SERUM 135.0 mmol/L (136-145)
[2024-11-20 04:53] LABS: UREA NITROGEN, BLOOD 87.0 mg/dL (7-18)
[2024-11-20 05:08] LABS: LYMPHOCYTES % (MANUAL) 2 % (16-48); MONOCYTES % (MANUAL) 3 % (0-11.0); NEUTROPHILS % (MANUAL) 95 (42-76); PLATELET ESTIMATE INCREASED
[2024-11-20 07:07] LABS: *HIV-1 RNA BY PCR <20 copies/mL (.)
[2024-11-20] MEDS: FENTANYL CITRAT IV 2,500 MCG in IV NS 0.9% 200 ML IV PRN (19:46)
[2024-11-20] MEDS ORDERED: IV NS 0.9% 250 ML IV ONE (20:41)
[2024-11-20] MEDS ORDERED: IOHEXOL-350 100 ML VIAL IV ONE (20:41)
[2024-11-20] MEDS ORDERED: CT SWABBABLE VALVE TRANS SET 1 EA INFUS.SET MC ONE (20:41)
[2024-11-20] MEDS: PANTOPRAZOLE 40 MG VIAL IV SCH (21:25)
[2024-11-21] VITALS (63 sets, daily range): BP systolic 80–152; BP diastolic 50–85; TEMP 97.3–100; O2SAT 99–100
[2024-11-21 04:52] LABS: PLATELET COUNT (AUTO) 470 K/uL (150-450); RED BLOOD CELL COUNT(AUTO) 3.58 MIL/uL (4.0-5.2); RED CELL DISTRIBUTION WIDTH 36.3 % (11.5-15.0); WHITE BLOOD COUNT (AUTO) 14.5 K/uL (4.3-11.0)
[2024-11-21 04:56] LABS: CALCIUM, SERUM 8.9 mg/dL (8.5-10.1); CREATININE 2.0 mg/dL (0.6-1.3); SODIUM SERUM 140.0 mmol/L (136-145); UREA NITROGEN, BLOOD 43.0 mg/dL (7-18)
[2024-11-21 05:06] LABS: FIBRINOGEN ACTIVITY 439.0 Mg/dL (213-485); INR 1.41 (0.91-1.10)
[2024-11-21 05:45] LABS: EOSINOPHILS % (MANUAL) 2 % (0-4); LYMPHOCYTES % (MANUAL) 2 % (16-48); NEUTROPHILS % (MANUAL) 96 (42-76); PLATELET ESTIMATE INCREASED
[2024-11-22] VITALS (48 sets, daily range): BP systolic 109–154; BP diastolic 65–98; TEMP 97.7–98.8; O2SAT 98–100
[2024-11-22] MEDS: LORAZEPAM 1 MG TABLET ONE (01:29)
[2024-11-22 04:38] LABS: PLATELET COUNT (AUTO) 419 K/uL (150-450); RED BLOOD CELL COUNT(AUTO) 3.92 MIL/uL (4.0-5.2); RED CELL DISTRIBUTION WIDTH 34.9 % (11.5-15.0); WHITE BLOOD COUNT (AUTO) 14.1 K/uL (4.3-11.0)
[2024-11-22 04:49] LABS: CALCIUM, SERUM 8.6 mg/dL (8.5-10.1); CREATININE 1.5 mg/dL (0.6-1.3); SODIUM SERUM 136.0 mmol/L (136-145); UREA NITROGEN, BLOOD 33.0 mg/dL (7-18)
[2024-11-22 05:57] LABS: EOSINOPHILS % (MANUAL) 1 % (0-4); LYMPHOCYTES % (MANUAL) 4 % (16-48); MONOCYTES % (MANUAL) 1 % (0-11.0); NEUTROPHILS % (MANUAL) 94 (42-76); PLATELET ESTIMATE ADEQUATE
[2024-11-22] MEDS: THERAHONEY GEL 1.5 OZ TUBE TP SCH (09:11)
[2024-11-22] MEDS: PANTOPRAZOLE 40 MG/PACK PACK NG SCH (09:11)
[2024-11-22 12:44] LABS: ABG BASE EXCESS -3.5 mmol/L (-2.0-3.0); ABG OXYGEN SATURATION 98.0 % (94.0-98.0); ABG PCO2 30.0 mmHg (32.0-45.0); ABG PH 7.440 (7.350-7.450); ABG PO2 117.8 mmHg (83.0-108.0); ABG TOTAL HEMOGLOBIN 9.5 G/dL (12.0-16.0); FRACTIONATED INSPIRED OXYGEN 40.0 %; PEEP,BG 5 cm H2O; SET RATE, BG 4.0; SITE, ABG RIGHT RADIAL; VT, ABG 400 mL
[2024-11-22] MEDS: dexaMETHasone SOD PHOSPHATE 10 MG/ML VIAL IV ONE (13:33)
[2024-11-22] MEDS ORDERED: DC PROPOFOL WHEN EXTUBATED XX PRN (14:00)
[2024-11-22 15:55] LABS: ABG BASE EXCESS -4.6 mmol/L (-2.0-3.0); ABG OXYGEN SATURATION 96.2 % (94.0-98.0); ABG PCO2 31.8 mmHg (32.0-45.0); ABG PH 7.403 (7.350-7.450); ABG PO2 89.2 mmHg (83.0-108.0); ABG TOTAL HEMOGLOBIN 9.9 G/dL (12.0-16.0); FLOW, BLOOD GAS 5.00 L/min (0.00-30.00); FRACTIONATED INSPIRED OXYGEN 40.0 %; SITE, ABG RIGHT RADIAL
[2024-11-23] VITALS (57 sets, daily range): BP systolic 63–155; BP diastolic 36–108; TEMP 98–98.8; O2SAT 90–100
[2024-11-23 04:00] LABS: PLATELET COUNT (AUTO) 488 K/uL (150-450); RED BLOOD CELL COUNT(AUTO) 4.62 MIL/uL (4.0-5.2); RED CELL DISTRIBUTION WIDTH 35.3 % (11.5-15.0); WHITE BLOOD COUNT (AUTO) 14.4 K/uL (4.3-11.0)
[2024-11-23 04:08] LABS: CALCIUM, SERUM 9.7 mg/dL (8.5-10.1); CREATININE 2.5 mg/dL (0.6-1.3); SODIUM SERUM 136.0 mmol/L (136-145); UREA NITROGEN, BLOOD 66.0 mg/dL (7-18)
[2024-11-23 04:15] LABS: FIBRINOGEN ACTIVITY 366.0 Mg/dL (213-485); INR 1.58 (0.91-1.10)
[2024-11-23 06:22] LABS: BAND % (MANUAL) 1 % (0.0-5.0); EOSINOPHILS % (MANUAL) 1 % (0-4); LYMPHOCYTES % (MANUAL) 3 % (16-48); MONOCYTES % (MANUAL) 8 % (0-11.0); MYELOCYTES % 1 % (0-0); NEUTROPHILS % (MANUAL) 86 (42-76)
[2024-11-23 06:23] LABS: PLATELET ESTIMATE INCREASED
[2024-11-23] MEDS ORDERED: PPN ADDITIVES 1 EA in AMINO ACIDS 4.25 %/DEXTROSE 5% 1,000 ML IV PRN (10:30)
[2024-11-23] MEDS: ARGININE/GLUTAMINE/CALCIUM BMB 1 EACH POWD.PACK NG SCH (10:30)
[2024-11-23] MEDS ORDERED: DEXTROSE 50%-WATER 50 ML DISP.SYRIN IV PRN (11:30)
[2024-11-23 11:41] LABS: PHOSPHORUS 7.3 mg/dL (2.5-4.9)
[2024-11-23] MEDS ORDERED: MIDAZOLAM HCL 50 MG in IV NS 0.9% 40 ML IV PRN (12:00)
[2024-11-23] MEDS ORDERED: ETOMIDATE 2 MG/ML VIAL ONE (12:00)
[2024-11-23] MEDS ORDERED: ROCURONIUM BROMIDE 50 MG/5 ML ONE (12:00)
[2024-11-23] MEDS: BLOOD SUGAR DIAGNOSTIC 1 EACH STRIP IN SCH (12:49)
[2024-11-23] MEDS: MIDAZOLAM HCL 100 MG in IV NS 0.9% 80 ML IV PRN (13:06)
[2024-11-23] MEDS: FENTANYL CITRAT IV 2,500 MCG in IV NS 0.9% 200 ML IV PRN (13:08)
[2024-11-23 13:13] LABS: ABG BASE EXCESS -9.3 mmol/L (-2.0-3.0); ABG OXYGEN SATURATION 93.5 % (94.0-98.0); ABG PCO2 50.7 mmHg (32.0-45.0); ABG PH 7.188 (7.350-7.450); ABG PO2 94.1 mmHg (83.0-108.0); ABG TOTAL HEMOGLOBIN 11.3 G/dL (12.0-16.0); FRACTIONATED INSPIRED OXYGEN 50.0 %; PEEP,BG 5 cm H2O; SET RATE, BG 16.0; SITE, ABG RIGHT BRACHIAL; VT, ABG 400 mL
[2024-11-23] MEDS: PPN#1 IV SCH (14:07)
[2024-11-23 21:06] LABS: ABG BASE EXCESS -0.6 mmol/L (-2.0-3.0); ABG OXYGEN SATURATION 97.0 % (94.0-98.0); ABG PCO2 32.4 mmHg (32.0-45.0); ABG PH 7.465 (7.350-7.450); ABG PO2 101.7 mmHg (83.0-108.0); ABG TOTAL HEMOGLOBIN 9.4 G/dL (12.0-16.0); FRACTIONATED INSPIRED OXYGEN 40.0 %; PEEP,BG 5 cm H2O; SET RATE, BG 24.0; SITE, ABG RIGHT RADIAL; VT, ABG 400 mL
[2024-11-24] VITALS (45 sets, daily range): BP systolic 123–153; BP diastolic 92–113; TEMP 99–99.4; O2SAT 100
[2024-11-24 04:27] LABS: PLATELET COUNT (AUTO) 418 K/uL (150-450); RED BLOOD CELL COUNT(AUTO) 4.10 MIL/uL (4.0-5.2); RED CELL DISTRIBUTION WIDTH 35.3 % (11.5-15.0); WHITE BLOOD COUNT (AUTO) 14.2 K/uL (4.3-11.0)
[2024-11-24 04:44] LABS: ASPARTATE AMINOTRANSFERASE 29.0 U/L (15-37); CALCIUM, SERUM 9.0 mg/dL (8.5-10.1); CREATININE 1.9 mg/dL (0.6-1.3); PHOSPHORUS 5.0 mg/dL (2.5-4.9); SODIUM SERUM 137.0 mmol/L (136-145); TOTAL PROTEIN, SERUM 6.1 g/dL (6.4-8.2); UREA NITROGEN, BLOOD 55.0 mg/dL (7-18)
[2024-11-24 04:46] LABS: LDL 41.0 mg/dL (0-99)
[2024-11-24 04:56] LABS: FIBRINOGEN ACTIVITY 266.0 Mg/dL (213-485); INR 1.5 (0.91-1.10)
[2024-11-24 06:27] LABS: EOSINOPHILS % (MANUAL) 2 % (0-4); LYMPHOCYTES % (MANUAL) 7 % (16-48); MONOCYTES % (MANUAL) 6 % (0-11.0); NEUTROPHILS % (MANUAL) 85 (42-76); PLATELET ESTIMATE ADEQUATE
[2024-11-24 08:25] LABS: ABG BASE EXCESS -3.0 mmol/L (-2.0-3.0); ABG OXYGEN SATURATION 97.0 % (94.0-98.0); ABG PCO2 36.2 mmHg (32.0-45.0); ABG PH 7.392 (7.350-7.450); ABG PO2 104.4 mmHg (83.0-108.0); ABG TOTAL HEMOGLOBIN 9.3 G/dL (12.0-16.0); FRACTIONATED INSPIRED OXYGEN 40.0 %; SET RATE, BG 20.0; SITE, ABG RIGHT BRACHIAL; VT, ABG 400 mL
[2024-11-24] MEDS: FAT EMULSION 20% 500 ML in PREMIX 1 EA IV SCH (14:13)
[2024-11-24] MEDS: ARGININE/GLUTAMINE/CALCIUM BMB 1 EACH POWD.PACK NG SCH (21:36)
[2024-11-24] MEDS: PPN#2 IV SCH (22:28)
[2024-11-25] VITALS (37 sets, daily range): BP systolic 118–148; BP diastolic 79–102; TEMP 98.7–100.2; O2SAT 96–100
[2024-11-25 04:29] LABS: CALCIUM, SERUM 8.5 mg/dL (8.5-10.1); PHOSPHORUS 5.8 mg/dL (2.5-4.9); SODIUM SERUM 134.0 mmol/L (136-145)
[2024-11-25 04:36] LABS: CREATININE 2.7 mg/dL (0.6-1.3)
[2024-11-25 04:43] LABS: UREA NITROGEN, BLOOD 94.0 mg/dL (7-18)
[2024-11-25 08:50] LABS: PLATELET COUNT (AUTO) 423 K/uL (150-450); RED BLOOD CELL COUNT(AUTO) 3.99 MIL/uL (4.0-5.2); RED CELL DISTRIBUTION WIDTH 35.6 % (11.5-15.0); WHITE BLOOD COUNT (AUTO) 14.6 K/uL (4.3-11.0)
[2024-11-25 09:49] LABS: ABG BASE EXCESS -1.2 mmol/L (-2.0-3.0); ABG OXYGEN SATURATION 97.6 % (94.0-98.0); ABG PCO2 31.4 mmHg (32.0-45.0); ABG PH 7.465 (7.350-7.450); ABG PO2 112.8 mmHg (83.0-108.0); ABG TOTAL HEMOGLOBIN 8.8 G/dL (12.0-16.0); FRACTIONATED INSPIRED OXYGEN 40.0 %; SET RATE, BG 4.0; SITE, ABG RIGHT BRACHIAL; VT, ABG 400 mL
[2024-11-25] MEDS: PANTOPRAZOLE 40 MG VIAL IV SCH (10:45)
[2024-11-25] MEDS: PPN#3 IV SCH (21:37)
[2024-11-26] VITALS (24 sets, daily range): BP systolic 128–152; BP diastolic 88–107; TEMP 96.8–98; O2SAT 99–100
[2024-11-26] MEDS: INSULIN REGULAR, HUMAN 100 UNIT/ML 3 ML VIAL SQ PRN (00:39)
[2024-11-26] MEDS: dexaMETHasone SOD PHOSPHATE 10 MG/ML VIAL IV ONE (02:33)
[2024-11-26 04:32] LABS: PLATELET COUNT (AUTO) 336 K/uL (150-450); RED BLOOD CELL COUNT(AUTO) 4.88 MIL/uL (4.0-5.2); RED CELL DISTRIBUTION WIDTH 35.5 % (11.5-15.0); WHITE BLOOD COUNT (AUTO) 9.3 K/uL (4.3-11.0)
[2024-11-26 04:44] LABS: ASPARTATE AMINOTRANSFERASE 28.0 U/L (15-37); CALCIUM, SERUM 8.9 mg/dL (8.5-10.1); CREATININE 2.2 mg/dL (0.6-1.3); PHOSPHORUS 5.0 mg/dL (2.5-4.9); SODIUM SERUM 135.0 mmol/L (136-145); TOTAL PROTEIN, SERUM 6.0 g/dL (6.4-8.2); UREA NITROGEN, BLOOD 75.0 mg/dL (7-18)
[2024-11-26 04:58] LABS: EOSINOPHILS % (MANUAL) 1 % (0-4); LYMPHOCYTES % (MANUAL) 4 % (16-48); MONOCYTES % (MANUAL) 2 % (0-11.0); NEUTROPHILS % (MANUAL) 93 (42-76); PLATELET ESTIMATE ADEQUATE
[2024-11-26 08:07] LABS: ABG BASE EXCESS 3.0 mmol/L (-2.0-3.0); ABG OXYGEN SATURATION 97.5 % (94.0-98.0); ABG PCO2 32.3 mmHg (32.0-45.0); ABG PH 7.518 (7.350-7.450); ABG PO2 105.7 mmHg (83.0-108.0); ABG TOTAL HEMOGLOBIN 10.2 G/dL (12.0-16.0); FRACTIONATED INSPIRED OXYGEN 40.0 %; PEEP,BG 5 cm H2O; SET RATE, BG 4.0; SITE, ABG RIGHT RADIAL; VT, ABG 400 mL
[2024-11-26] MEDS: POTASSIUM CL. PREMIX PERIPHER. 50 ML IV SCH (08:15)
[2024-11-26 11:04] LABS: ABG BASE EXCESS 0.8 mmol/L (-2.0-3.0); ABG OXYGEN SATURATION 98.1 % (94.0-98.0); ABG PCO2 32.7 mmHg (32.0-45.0); ABG PH 7.482 (7.350-7.450); ABG PO2 126.9 mmHg (83.0-108.0); ABG TOTAL HEMOGLOBIN 10.1 G/dL (12.0-16.0); PEEP,BG 5 cm H2O; SITE, ABG LEFT RADIAL
[2024-11-26] MEDS ORDERED: TPN BAG #5 IV SCH (11:15)
[2024-11-26] MEDS: TPN BAG #4 IV SCH (18:24)
[2024-11-27] VITALS (24 sets, daily range): BP systolic 135–157; BP diastolic 82–102; TEMP 97.8–98.4; O2SAT 97–100
[2024-11-27] MEDS ORDERED: LORAZEPAM INJ 2 MG/ML VIAL IV PRN (00:30)
[2024-11-27] MEDS ORDERED: LORAZEPAM INJ 2 MG/ML VIAL IV ONE (01:00)
[2024-11-27 04:21] LABS: PLATELET COUNT (AUTO) 376 K/uL (150-450); RED BLOOD CELL COUNT(AUTO) 4.61 MIL/uL (4.0-5.2); RED CELL DISTRIBUTION WIDTH 35.9 % (11.5-15.0); WHITE BLOOD COUNT (AUTO) 8.6 K/uL (4.3-11.0)
[2024-11-27 04:35] LABS: ASPARTATE AMINOTRANSFERASE 27.0 U/L (15-37); CALCIUM, SERUM 8.6 mg/dL (8.5-10.1); CREATININE 2.8 mg/dL (0.6-1.3); PHOSPHORUS 6.3 mg/dL (2.5-4.9); SODIUM SERUM 129.0 mmol/L (136-145); TOTAL PROTEIN, SERUM 5.8 g/dL (6.4-8.2)
[2024-11-27 04:48] LABS: UREA NITROGEN, BLOOD 122.0 mg/dL (7-18)
[2024-11-27 04:53] LABS: EOSINOPHILS % (MANUAL) 6 % (0-4); LYMPHOCYTES % (MANUAL) 5 % (16-48); MONOCYTES % (MANUAL) 5 % (0-11.0); NEUTROPHILS % (MANUAL) 84 (42-76)
[2024-11-27 04:56] LABS: PLATELET ESTIMATE ADEQUATE
[2024-11-27] MEDS: PPN #5 IV SCH (11:33)
[2024-11-27] MEDS: LORAZEPAM INJ 2 MG/ML VIAL IV ONE (15:22)
[2024-11-28] VITALS (24 sets, daily range): BP systolic 137–159; BP diastolic 86–99; TEMP 98–99.5; O2SAT 97–100
[2024-11-28 04:52] LABS: CALCIUM, SERUM 8.3 mg/dL (8.5-10.1); PHOSPHORUS 5.8 mg/dL (2.5-4.9); SODIUM SERUM 132.0 mmol/L (136-145)
[2024-11-28 04:59] LABS: CREATININE 2.6 mg/dL (0.6-1.3)
[2024-11-28 05:07] LABS: UREA NITROGEN, BLOOD 100.0 mg/dL (7-18)
[2024-11-28] MEDS: PPN #6 IV SCH (21:18)
[2024-11-29] VITALS (37 sets, daily range): BP systolic 90–161; BP diastolic 70–100; TEMP 97.8–98.9; O2SAT 93–100
[2024-11-29] MEDS: VECURONIUM 10 MG VIAL IV PRN (11:13)
[2024-11-29] MEDS: MIDAZOLAM HCL 2 MG/2ML VIAL IV PRN (11:14)
[2024-11-29] MEDS: FENTANYL PF 100MCG/2ML AMPUL IV PRN (11:15)
[2024-11-29] MEDS: LABETALOL 20 MG/4 ML VIAL ONE (12:08)
[2024-11-29 13:20] LABS: INR 1.26 (0.91-1.10)
[2024-11-29 13:25] LABS: CALCIUM, SERUM 7.4 mg/dL (8.5-10.1); CREATININE 3.5 mg/dL (0.6-1.3); SODIUM SERUM 126.0 mmol/L (136-145)
[2024-11-29 13:45] LABS: PHOSPHORUS 8.1 mg/dL (2.5-4.9); UREA NITROGEN, BLOOD 149.0 mg/dL (7-18)
[2024-11-29] MEDS: PPN #7 IV SCH (15:01)
[2024-11-29] MEDS: Magnesium 1GM/D5W 100ML PREMIX 100 ML IV SCH (16:36)
[2024-11-29] MEDS ORDERED: MORPHINE SULFATE 8 MG/ML VIAL IV ONE (19:30)
[2024-11-29] MEDS: HYDROCODONE/APAP 5/325MG TABLET GT ONE (19:51)
[2024-11-30] VITALS (32 sets, daily range): BP systolic 125–158; BP diastolic 83–99; TEMP 97.8–99.2; O2SAT 100
[2024-11-30] MEDS: LORAZEPAM 0.5 MG TABLET PO SCH (08:16)
[2024-11-30] MEDS: ONDANSETRON HCL/PF 4 MG/2 ML VIAL IVP PRN (08:19)
[2024-11-30 11:15] LABS: PLATELET COUNT (AUTO) 318 K/uL (150-450); RED BLOOD CELL COUNT(AUTO) 4.41 MIL/uL (4.0-5.2); RED CELL DISTRIBUTION WIDTH 35.2 % (11.5-15.0); WHITE BLOOD COUNT (AUTO) 9.0 K/uL (4.3-11.0)
[2024-11-30 11:21] LABS: CALCIUM, SERUM 8.3 mg/dL (8.5-10.1); CREATININE 2.4 mg/dL (0.6-1.3); PHOSPHORUS 5.0 mg/dL (2.5-4.9); SODIUM SERUM 138.0 mmol/L (136-145)
[2024-11-30 11:25] LABS: UREA NITROGEN, BLOOD 104.0 mg/dL (7-18)
[2024-11-30 11:30] LABS: FIBRINOGEN ACTIVITY 146.0 Mg/dL (213-485); INR 1.23 (0.91-1.10)
[2024-11-30] MEDS: POTASSIUM CL. PREMIX PERIPHER. 50 ML IV SCH (12:53)
[2024-11-30] MEDS: ACETAMINOPHEN 325 MG TABLET PO ONE ×2 (20:31)
[2024-11-30] MEDS: PPN #8 IV SCH (22:03)
[2024-12-01] VITALS (38 sets, daily range): BP systolic 96–158; BP diastolic 60–115; TEMP 98–98.2; O2SAT 95–100
[2024-12-01] MEDS: NEPRO 1,000 ML BOTTLE GT PRN (03:07)
[2024-12-01 04:53] LABS: PLATELET COUNT (AUTO) 342 K/uL (150-450); RED BLOOD CELL COUNT(AUTO) 4.15 MIL/uL (4.0-5.2); RED CELL DISTRIBUTION WIDTH 34.9 % (11.5-15.0); WHITE BLOOD COUNT (AUTO) 9.2 K/uL (4.3-11.0)
[2024-12-01 05:00] LABS: CALCIUM, SERUM 8.3 mg/dL (8.5-10.1); PHOSPHORUS 5.2 mg/dL (2.5-4.9); SODIUM SERUM 132.0 mmol/L (136-145)
[2024-12-01 05:11] LABS: CREATININE 2.7 mg/dL (0.6-1.3)
[2024-12-01 05:43] LABS: UREA NITROGEN, BLOOD 139.0 mg/dL (7-18)
[2024-12-01 06:10] LABS: EOSINOPHILS % (MANUAL) 18 % (0-4); NEUTROPHILS % (MANUAL) 65 (42-76)
[2024-12-01 06:11] LABS: LYMPHOCYTES % (MANUAL) 7 % (16-48); MONOCYTES % (MANUAL) 10 % (0-11.0); PLATELET ESTIMATE ADEQUATE
[2024-12-01 09:06] LABS: ABG BASE EXCESS -8.1 mmol/L (-2.0-3.0); ABG OXYGEN SATURATION 96.3 % (94.0-98.0); ABG PCO2 29.1 mmHg (32.0-45.0); ABG PH 7.364 (7.350-7.450); ABG PO2 92.3 mmHg (83.0-108.0); ABG TOTAL HEMOGLOBIN 9.4 G/dL (12.0-16.0); FRACTIONATED INSPIRED OXYGEN 40.0 %; PEEP,BG 5 cm H2O; SET RATE, BG 4.0; SITE, ABG LEFT RADIAL; VT, ABG 400 mL
[2024-12-01 10:43] LABS: FIBRINOGEN ACTIVITY 299.0 Mg/dL (213-485); INR 1.05 (0.91-1.10)
[2024-12-01 11:29] LABS: ABG BASE EXCESS -8.6 mmol/L (-2.0-3.0); ABG OXYGEN SATURATION 98.5 % (94.0-98.0); ABG PCO2 28.8 mmHg (32.0-45.0); ABG PH 7.357 (7.350-7.450); ABG PO2 142.6 mmHg (83.0-108.0); ABG TOTAL HEMOGLOBIN 9.3 G/dL (12.0-16.0); FRACTIONATED INSPIRED OXYGEN 40.0 %; PEEP,BG 5 cm H2O; SITE, ABG LEFT RADIAL
[2024-12-01 14:19] LABS: CALCIUM, SERUM 8.6 mg/dL (8.5-10.1); CREATININE 1.1 mg/dL (0.6-1.3); SODIUM SERUM 137.0 mmol/L (136-145); UREA NITROGEN, BLOOD 44.0 mg/dL (7-18)
[2024-12-01] MEDS: PPN #9 IV SCH (15:13)
[2024-12-01] MEDS: LORAZEPAM 1 MG TABLET PO SCH (16:45)
[2024-12-01] MEDS ORDERED: MIDAZOLAM HCL 2 MG/2ML VIAL ONE (18:47)
[2024-12-02] VITALS (60 sets, daily range): BP systolic 63–169; BP diastolic 43–114; TEMP 97.8–98.6; O2SAT 90–99
[2024-12-02] MEDS: LORAZEPAM INJ 2 MG/ML VIAL IV ONE (00:03)
[2024-12-02 04:20] LABS: CALCIUM, SERUM 8.1 mg/dL (8.5-10.1); CREATININE 2.1 mg/dL (0.6-1.3); PHOSPHORUS 4.4 mg/dL (2.5-4.9); SODIUM SERUM 138.0 mmol/L (136-145)
[2024-12-02 04:43] LABS: UREA NITROGEN, BLOOD 91.0 mg/dL (7-18)
[2024-12-02] MEDS: PHENYLEPHRINE 50 MG in IV NS 0.9% 245 ML IV PRN (07:46)
[2024-12-02 08:29] LABS: PLATELET COUNT (AUTO) 199 K/uL (150-450); RED BLOOD CELL COUNT(AUTO) 2.34 MIL/uL (4.0-5.2); RED CELL DISTRIBUTION WIDTH 34.5 % (11.5-15.0); WHITE BLOOD COUNT (AUTO) 6.6 K/uL (4.3-11.0)
[2024-12-02 08:30] LABS: ABG BASE EXCESS -7.6 mmol/L (-2.0-3.0); ABG OXYGEN SATURATION 99.0 % (94.0-98.0); ABG PCO2 27.2 mmHg (32.0-45.0); ABG PH 7.403 (7.350-7.450); ABG PO2 517.2 mmHg (83.0-108.0); ABG TOTAL HEMOGLOBIN 5.2 G/dL (12.0-16.0); FRACTIONATED INSPIRED OXYGEN 100.0 %; PEEP,BG 0 cm H2O; SET RATE, BG 20.0; SITE, ABG RIGHT RADIAL; VT, ABG 400 mL
[2024-12-02] MEDS: PPN #10 IV SCH (08:39)
[2024-12-02 11:57] LABS: EOSINOPHILS % (MANUAL) 1 % (0-4); LYMPHOCYTES % (MANUAL) 3 % (16-48); MONOCYTES % (MANUAL) 2 % (0-11.0); MYELOCYTES % 5 % (0-0); NEUTROPHILS % (MANUAL) 89 (42-76); NUCLEATED RED BLOOD CELLS 13.0 /100WBC (0.0-0.0)
[2024-12-02 11:58] LABS: PLATELET ESTIMATE ADEQUATE
[2024-12-02 19:34] LABS: FIBRINOGEN ACTIVITY 219.0 Mg/dL (213-485); INR 1.08 (0.91-1.10)
[2024-12-03] VITALS (29 sets, daily range): BP systolic 131–162; BP diastolic 82–107; TEMP 98–98.4; O2SAT 99–100
[2024-12-03] MEDS: PPN #11 IV SCH (01:26)
[2024-12-03 04:27] LABS: PLATELET COUNT (AUTO) 155 K/uL (150-450); RED BLOOD CELL COUNT(AUTO) 4.07 MIL/uL (4.0-5.2); RED CELL DISTRIBUTION WIDTH 24.3 % (11.5-15.0); WHITE BLOOD COUNT (AUTO) 13.2 K/uL (4.3-11.0)
[2024-12-03 04:42] LABS: CALCIUM, SERUM 8.3 mg/dL (8.5-10.1); PHOSPHORUS 4.6 mg/dL (2.5-4.9); SODIUM SERUM 142.0 mmol/L (136-145)
[2024-12-03 04:46] LABS: FIBRINOGEN ACTIVITY 276.0 Mg/dL (213-485); INR 1.06 (0.91-1.10)
[2024-12-03 04:51] LABS: CREATININE 2.3 mg/dL (0.6-1.3)
[2024-12-03 05:09] LABS: UREA NITROGEN, BLOOD 127.0 mg/dL (7-18)
[2024-12-03 05:16] LABS: IRON, SERUM 31 ug/dl (50-175)
[2024-12-03 05:22] LABS: EOSINOPHILS % (MANUAL) 6 % (0-4); LYMPHOCYTES % (MANUAL) 11 % (16-48); MONOCYTES % (MANUAL) 6 % (0-11.0); NEUTROPHILS % (MANUAL) 77 (42-76); PLATELET ESTIMATE ADEQUATE
[2024-12-03] MEDS: ACETAMINOPHEN 325 MG TABLET PO ONE (08:00)
[2024-12-03] MEDS: LORAZEPAM INJ 2 MG/ML VIAL IV SCH (08:53)
[2024-12-03] MEDS: PANTOPRAZOLE 40 MG VIAL IV SCH (13:49)
[2024-12-03 14:15] LABS: PLATELET COUNT (AUTO) 149 K/uL (150-450); RED BLOOD CELL COUNT(AUTO) 4.02 MIL/uL (4.0-5.2); RED CELL DISTRIBUTION WIDTH 24.3 % (11.5-15.0)
[2024-12-03 14:43] LABS: EOSINOPHILS % (MANUAL) 5 % (0-4); LYMPHOCYTES % (MANUAL) 6 % (16-48); MONOCYTES % (MANUAL) 6 % (0-11.0); NEUTROPHILS % (MANUAL) 81 (42-76); PROMYELOCYTES % 2 % (0-0)
[2024-12-03 15:06] LABS: WHITE BLOOD COUNT (AUTO) 12.7 K/uL (4.3-11.0)
[2024-12-03] MEDS: PPN #12 IV SCH (18:44)
[2024-12-04] VITALS (31 sets, daily range): BP systolic 130–154; BP diastolic 82–107; TEMP 97.7–100.4; O2SAT 99–100
[2024-12-04 01:47] LABS: PLATELET COUNT (AUTO) 108 K/uL (150-450); RED BLOOD CELL COUNT(AUTO) 3.92 MIL/uL (4.0-5.2); RED CELL DISTRIBUTION WIDTH 24.0 % (11.5-15.0); WHITE BLOOD COUNT (AUTO) 11.1 K/uL (4.3-11.0)
[2024-12-04 04:36] LABS: BAND % (MANUAL) 1 % (0.0-5.0); EOSINOPHILS % (MANUAL) 2 % (0-4); LYMPHOCYTES % (MANUAL) 7 % (16-48); METAMYELOCYTES % 2 % (0-0); MONOCYTES % (MANUAL) 6 % (0-11.0); NEUTROPHILS % (MANUAL) 82 (42-76); NUCLEATED RED BLOOD CELLS 1.0 /100WBC (0.0-0.0); PLATELET ESTIMATE 108
[2024-12-04 04:58] LABS: PLATELET COUNT (AUTO) 103 K/uL (150-450); RED BLOOD CELL COUNT(AUTO) 3.81 MIL/uL (4.0-5.2); RED CELL DISTRIBUTION WIDTH 23.6 % (11.5-15.0); WHITE BLOOD COUNT (AUTO) 11.1 K/uL (4.3-11.0)
[2024-12-04 05:06] LABS: ASPARTATE AMINOTRANSFERASE 55.0 U/L (15-37); CALCIUM, SERUM 8.2 mg/dL (8.5-10.1); CREATININE 1.7 mg/dL (0.6-1.3); PHOSPHORUS 2.9 mg/dL (2.5-4.9); SODIUM SERUM 140.0 mmol/L (136-145); TOTAL PROTEIN, SERUM 5.0 g/dL (6.4-8.2); UREA NITROGEN, BLOOD 79.0 mg/dL (7-18)
[2024-12-04 05:12] LABS: FIBRINOGEN ACTIVITY 333.0 Mg/dL (213-485); INR 1.05 (0.91-1.10)
[2024-12-04 05:34] LABS: PLATELET ESTIMATE DECREASED
[2024-12-04] MEDS: POTASSIUM CL. PREMIX PERIPHER. 50 ML IV SCH ×2 (06:27→10:17)
[2024-12-04] MEDS: Magnesium 1GM/D5W 100ML PREMIX 100 ML IV SCH (10:05)
[2024-12-04] MEDS ORDERED: PPN #13 IV SCH (11:23)
[2024-12-04] MEDS: PPN #13 IV SCH (12:34)
[2024-12-05] VITALS (41 sets, daily range): BP systolic 123–155; BP diastolic 80–110; TEMP 98.4–99.4; O2SAT 95–100
[2024-12-05 04:58] LABS: PLATELET COUNT (AUTO) 112 K/uL (150-450); RED BLOOD CELL COUNT(AUTO) 3.75 MIL/uL (4.0-5.2); RED CELL DISTRIBUTION WIDTH 24.9 % (11.5-15.0); WHITE BLOOD COUNT (AUTO) 17.8 K/uL (4.3-11.0)
[2024-12-05 05:19] LABS: CALCIUM, SERUM 8.1 mg/dL (8.5-10.1); CREATININE 2.1 mg/dL (0.6-1.3); PHOSPHORUS 2.6 mg/dL (2.5-4.9); SODIUM SERUM 132.0 mmol/L (136-145)
[2024-12-05 05:24] LABS: FIBRINOGEN ACTIVITY 333.0 Mg/dL (213-485); INR 1.05 (0.91-1.10)
[2024-12-05 05:33] LABS: UREA NITROGEN, BLOOD 103.0 mg/dL (7-18)
[2024-12-05 06:26] LABS: EOSINOPHILS % (MANUAL) 1 % (0-4); LYMPHOCYTES % (MANUAL) 3 % (16-48); MONOCYTES % (MANUAL) 8 % (0-11.0); MYELOCYTES % 1 % (0-0); NEUTROPHILS % (MANUAL) 87 (42-76); NUCLEATED RED BLOOD CELLS 8.0 /100WBC (0.0-0.0); PLATELET ESTIMATE DECREASED
[2024-12-05] MEDS ORDERED: MORPHINE SULFATE INJ 2 MG/ML DISP.SYRIN IV PRN (08:30)
[2024-12-05] MEDS: HYDROMORPHONE 1 MG/1 ML DISP.SYRIN IV PRN (09:37)
[2024-12-05] MEDS ORDERED: DOSE PER PHARMACY MICAFUNGIN 1 EA XX PRN (12:00)
[2024-12-05] MEDS ORDERED: DOSING PER PHARMACY-VANCOMYCIN IV XX PRN (12:00)
[2024-12-05] MEDS: MEROPENEM 500 MG in IV NS 0.9% 50 ML IV SCH (12:20)
[2024-12-05] MEDS: MICAFUNGIN SODIUM 100 MG in IV NS 0.9% 100 ML IV SCH (13:03)
[2024-12-05] MEDS: VANCOMYCIN 1 GM in IV D5W 250ml IV ONE (14:40)
[2024-12-05] MEDS: VANCOMYCIN POST DIALYSIS 500MG IV PRN (19:27)
[2024-12-05] MEDS: PPN #14 IV SCH (20:14)
[2024-12-06] VITALS (30 sets, daily range): BP systolic 115–139; BP diastolic 64–100; TEMP 98.4–99; O2SAT 94–100
[2024-12-06 05:13] LABS: FIBRINOGEN ACTIVITY 357.0 Mg/dL (213-485); INR 1.13 (0.91-1.10)
[2024-12-06 05:17] LABS: CALCIUM, SERUM 8.4 mg/dL (8.5-10.1); CREATININE 1.5 mg/dL (0.6-1.3); PHOSPHORUS 2.3 mg/dL (2.5-4.9); SODIUM SERUM 141.0 mmol/L (136-145); UREA NITROGEN, BLOOD 60.0 mg/dL (7-18)
[2024-12-06 05:26] LABS: PLATELET COUNT (AUTO) 97 K/uL (150-450); RED BLOOD CELL COUNT(AUTO) 3.15 MIL/uL (4.0-5.2); RED CELL DISTRIBUTION WIDTH 24.0 % (11.5-15.0); WHITE BLOOD COUNT (AUTO) 12.6 K/uL (4.3-11.0)
[2024-12-06 06:01] LABS: LYMPHOCYTES % (MANUAL) 5 % (16-48); MONOCYTES % (MANUAL) 6 % (0-11.0); NEUTROPHILS % (MANUAL) 89 (42-76)
[2024-12-06 06:02] LABS: PLATELET ESTIMATE GIANT PLATELET SEEN
[2024-12-06] MEDS: POTASSIUM CL. PREMIX PERIPHER. 50 ML IV SCH (09:49)
[2024-12-06] MEDS: PPN #15 IV SCH (13:53)
[2024-12-06] MEDS: Sodium Phosphate 15 MMOL in IV NS 0.9% 245 ML IV SCH (16:28)
[2024-12-06 18:20] LABS: PLATELET COUNT (AUTO) 117 K/uL (150-450); RED BLOOD CELL COUNT(AUTO) 2.74 MIL/uL (4.0-5.2); RED CELL DISTRIBUTION WIDTH 24.4 % (11.5-15.0); WHITE BLOOD COUNT (AUTO) 10.7 K/uL (4.3-11.0)
[2024-12-06 23:49] LABS: EOSINOPHILS % (MANUAL) 2 % (0-4); LYMPHOCYTES % (MANUAL) 14 % (16-48); MONOCYTES % (MANUAL) 4 % (0-11.0); NEUTROPHILS % (MANUAL) 79 (42-76); PLATELET ESTIMATE ADEQUATE
[2024-12-06 23:51] LABS: NUCLEATED RED BLOOD CELLS 10.0 /100WBC (0.0-0.0)
[2024-12-07] VITALS (27 sets, daily range): BP systolic 122–160; BP diastolic 88–114; TEMP 98.4–99.1; O2SAT 91–100
[2024-12-07 05:05] LABS: PLATELET COUNT (AUTO) 122 K/uL (150-450); RED BLOOD CELL COUNT(AUTO) 2.99 MIL/uL (4.0-5.2); RED CELL DISTRIBUTION WIDTH 23.9 % (11.5-15.0); WHITE BLOOD COUNT (AUTO) 11.4 K/uL (4.3-11.0)
[2024-12-07 05:24] LABS: FIBRINOGEN ACTIVITY 326.0 Mg/dL (213-485); INR 1.08 (0.91-1.10)
[2024-12-07 05:55] LABS: CALCIUM, SERUM 8.0 mg/dL (8.5-10.1); CREATININE 1.9 mg/dL (0.6-1.3); PHOSPHORUS 4.4 mg/dL (2.5-4.9); SODIUM SERUM 141.0 mmol/L (136-145)
[2024-12-07] MEDS: TPN #16 IV SCH (06:29)
[2024-12-07 06:49] LABS: UREA NITROGEN, BLOOD 92.0 mg/dL (7-18)
[2024-12-07 07:49] LABS: OCCULT BLOOD STOOL POSITIVE (NEGATIVE)
[2024-12-07 08:03] LABS: LYMPHOCYTES % (MANUAL) 5 % (16-48); MONOCYTES % (MANUAL) 4 % (0-11.0); PLATELET ESTIMATE ADEQUATE
[2024-12-07 08:04] LABS: EOSINOPHILS % (MANUAL) 1 % (0-4); NEUTROPHILS % (MANUAL) 90 (42-76)
[2024-12-07] MEDS: POTASSIUM CL. PREMIX PERIPHER. 50 ML IV SCH (08:47)
[2024-12-07] MEDS: Magnesium 1GM/D5W 100ML PREMIX 100 ML IV SCH (20:59)
[2024-12-07] MEDS: TPN IV SCH (21:06)
[2024-12-08] VITALS (42 sets, daily range): BP systolic 121–158; BP diastolic 88–111; TEMP 97.9–99.2; O2SAT 93–100
[2024-12-08 04:24] LABS: ASPARTATE AMINOTRANSFERASE 77.0 U/L (15-37); CALCIUM, SERUM 8.2 mg/dL (8.5-10.1); CREATININE 1.3 mg/dL (0.6-1.3); PHOSPHORUS 2.7 mg/dL (2.5-4.9); SODIUM SERUM 144.0 mmol/L (136-145); TOTAL PROTEIN, SERUM 5.3 g/dL (6.4-8.2); UREA NITROGEN, BLOOD 57.0 mg/dL (7-18)
[2024-12-08 04:28] LABS: FIBRINOGEN ACTIVITY 375.0 Mg/dL (213-485); INR 1.08 (0.91-1.10)
[2024-12-08 04:29] LABS: PLATELET COUNT (AUTO) 142 K/uL (150-450); RED BLOOD CELL COUNT(AUTO) 3.87 MIL/uL (4.0-5.2); RED CELL DISTRIBUTION WIDTH 21.2 % (11.5-15.0); WHITE BLOOD COUNT (AUTO) 9.6 K/uL (4.3-11.0)
[2024-12-08] MEDS: VANCOMYCIN 1 GM /D5W 250 ML PB IV ONE (04:40)
[2024-12-08 05:14] LABS: LYMPHOCYTES % (MANUAL) 12 % (16-48); MONOCYTES % (MANUAL) 6 % (0-11.0); NEUTROPHILS % (MANUAL) 82 (42-76); PLATELET ESTIMATE DECREASED
[2024-12-08] MEDS: LORAZEPAM 1 MG TABLET PO SCH (13:39)
[2024-12-08] MEDS: TPN IV SCH (15:55)
[2024-12-08] MEDS: NEPRO 1,000 ML BOTTLE GT PRN (17:00)
[2024-12-09] VITALS (40 sets, daily range): BP systolic 115–168; BP diastolic 88–124; TEMP 98.4–99.8; O2SAT 68–100
[2024-12-09 04:40] LABS: PLATELET COUNT (AUTO) 199 K/uL (150-450); RED BLOOD CELL COUNT(AUTO) 3.47 MIL/uL (4.0-5.2); RED CELL DISTRIBUTION WIDTH 21.0 % (11.5-15.0); WHITE BLOOD COUNT (AUTO) 13.7 K/uL (4.3-11.0)
[2024-12-09 04:54] LABS: CALCIUM, SERUM 7.8 mg/dL (8.5-10.1); SODIUM SERUM 141.0 mmol/L (136-145)
[2024-12-09 05:04] LABS: CREATININE 1.9 mg/dL (0.6-1.3); PHOSPHORUS 3.4 mg/dL (2.5-4.9)
[2024-12-09 05:21] LABS: UREA NITROGEN, BLOOD 97.0 mg/dL (7-18)
[2024-12-09 05:45] LABS: BASOPHILS % (MANUAL) 1 % (0.0-2.0); EOSINOPHILS % (MANUAL) 1 % (0-4); LYMPHOCYTES % (MANUAL) 5 % (16-48); MONOCYTES % (MANUAL) 6 % (0-11.0); NEUTROPHILS % (MANUAL) 82 (42-76); NUCLEATED RED BLOOD CELLS 7.0 /100WBC (0.0-0.0); PLATELET ESTIMATE ADEQUATE
[2024-12-09] MEDS: LORAZEPAM INJ 2 MG/ML VIAL IV ONE (08:17)
[2024-12-09] MEDS: TPN IV SCH (08:55)
[2024-12-09] MEDS: NEPRO 1,000 ML BOTTLE GT PRN (21:52)
[2024-12-10] VITALS (44 sets, daily range): BP systolic 93–152; BP diastolic 75–108; TEMP 97.5–98.6; O2SAT 98–100
[2024-12-10] MEDS: TPN BAG #20 IV SCH (02:53)
[2024-12-10 05:17] LABS: PLATELET COUNT (AUTO) 216 K/uL (150-450); RED BLOOD CELL COUNT(AUTO) 3.11 MIL/uL (4.0-5.2); RED CELL DISTRIBUTION WIDTH 21.4 % (11.5-15.0); WHITE BLOOD COUNT (AUTO) 10.1 K/uL (4.3-11.0)
[2024-12-10 05:29] LABS: CALCIUM, SERUM 8.4 mg/dL (8.5-10.1); CREATININE 1.2 mg/dL (0.6-1.3); PHOSPHORUS 2.6 mg/dL (2.5-4.9); SODIUM SERUM 143.0 mmol/L (136-145); UREA NITROGEN, BLOOD 72.0 mg/dL (7-18)
[2024-12-10 06:46] LABS: LYMPHOCYTES % (MANUAL) 10 % (16-48); MONOCYTES % (MANUAL) 4 % (0-11.0); NEUTROPHILS % (MANUAL) 86 (42-76); NUCLEATED RED BLOOD CELLS 25.0 /100WBC (0.0-0.0); PLATELET ESTIMATE ADEQUATE
[2024-12-10 07:44] LABS: PLATELET COUNT (AUTO) 217 K/uL (150-450); RED BLOOD CELL COUNT(AUTO) 3.17 MIL/uL (4.0-5.2); RED CELL DISTRIBUTION WIDTH 21.8 % (11.5-15.0); WHITE BLOOD COUNT (AUTO) 10.4 K/uL (4.3-11.0)
[2024-12-10 12:10] LABS: *CRYO RFLX CRYOGLOBULIN % 0.0 % (None detected)
[2024-12-10] MEDS: PROPOFOL 100 ML IV PRN ×2 (12:31→15:22)
[2024-12-10] MEDS: FENTANYL CITRAT IV 2,500 MCG in IV NS 0.9% 200 ML IV PRN (14:09)
[2024-12-10 14:21] LABS: ABG BASE EXCESS 0.5 mmol/L (-2.0-3.0); ABG OXYGEN SATURATION 92.3 % (94.0-98.0); ABG PCO2 39.7 mmHg (32.0-45.0); ABG PH 7.417 (7.350-7.450); ABG PO2 65.7 mmHg (83.0-108.0); ABG TOTAL HEMOGLOBIN 7.3 G/dL (12.0-16.0); FRACTIONATED INSPIRED OXYGEN 50.0 %; PEEP,BG 5 cm H2O; SET RATE, BG 20.0; SITE, ABG RIGHT RADIAL; VT, ABG 400 mL
[2024-12-10] MEDS ORDERED: Magnesium 1GM/D5W 100ML PREMIX 100 ML IV SCH (14:30)
[2024-12-10] MEDS: POTASSIUM CL. PREMIX PERIPHER. 50 ML IV SCH (14:49)
[2024-12-10] MEDS ORDERED: POTASSIUM PHOSPHATE MM 7.5 MMOL in IV NS 0.9% 100 ML IV SCH (17:00)
[2024-12-10] MEDS: VANCOMYCIN 1 GM in IV D5W 250ml IV ONE (17:05)
[2024-12-11] VITALS (32 sets, daily range): BP systolic 126–142; BP diastolic 73–107; TEMP 97.7–98.5; O2SAT 98–100
[2024-12-11 04:28] LABS: PLATELET COUNT (AUTO) 226 K/uL (150-450); RED BLOOD CELL COUNT(AUTO) 2.81 MIL/uL (4.0-5.2); RED CELL DISTRIBUTION WIDTH 22.1 % (11.5-15.0); WHITE BLOOD COUNT (AUTO) 16.3 K/uL (4.3-11.0)
[2024-12-11 04:53] LABS: CALCIUM, SERUM 8.3 mg/dL (8.5-10.1); CREATININE 1.1 mg/dL (0.6-1.3); SODIUM SERUM 139.0 mmol/L (136-145); UREA NITROGEN, BLOOD 69.0 mg/dL (7-18)
[2024-12-11 05:00] LABS: PHOSPHORUS 1.6 mg/dL (2.5-4.9)
[2024-12-11 05:11] LABS: LYMPHOCYTES % (MANUAL) 3 % (16-48); NEUTROPHILS % (MANUAL) 77 (42-76)
[2024-12-11 05:12] LABS: BAND % (MANUAL) 10 % (0.0-5.0); EOSINOPHILS % (MANUAL) 3 % (0-4)
[2024-12-11 05:13] LABS: MONOCYTES % (MANUAL) 7 % (0-11.0); NUCLEATED RED BLOOD CELLS 29.0 /100WBC (0.0-0.0); PLATELET ESTIMATE ADEQUATE
[2024-12-11] MEDS: POTASSIUM CL. PREMIX PERIPHER. 50 ML IV SCH (11:02)
[2024-12-11] MEDS: Magnesium 1GM/D5W 100ML PREMIX 100 ML IV SCH (11:03)
[2024-12-11] MEDS: Sodium Phosphate 15 MMOL in IV NS 0.9% 245 ML IV ONE (14:05)
[2024-12-12] VITALS (38 sets, daily range): BP systolic 114–153; BP diastolic 62–103; TEMP 98–98.4; O2SAT 98–100
[2024-12-12 04:48] LABS: CALCIUM, SERUM 7.9 mg/dL (8.5-10.1); CREATININE 0.9 mg/dL (0.6-1.3); PHOSPHORUS 2.9 mg/dL (2.5-4.9); SODIUM SERUM 139.0 mmol/L (136-145); UREA NITROGEN, BLOOD 57.0 mg/dL (7-18)
[2024-12-12 04:59] LABS: PLATELET COUNT (AUTO) 204 K/uL (150-450); RED BLOOD CELL COUNT(AUTO) 2.79 MIL/uL (4.0-5.2); RED CELL DISTRIBUTION WIDTH 22.3 % (11.5-15.0); WHITE BLOOD COUNT (AUTO) 12.7 K/uL (4.3-11.0)
[2024-12-12 05:52] LABS: BAND % (MANUAL) 3 % (0.0-5.0); EOSINOPHILS % (MANUAL) 1 % (0-4); LYMPHOCYTES % (MANUAL) 13 % (16-48); MONOCYTES % (MANUAL) 3 % (0-11.0); NEUTROPHILS % (MANUAL) 76 (42-76)
[2024-12-12 05:53] LABS: PLATELET ESTIMATE ADEQUATE
[2024-12-12 05:55] LABS: NUCLEATED RED BLOOD CELLS 90.0 /100WBC (0.0-0.0)
[2024-12-12] MEDS: TPN IV SCH (23:43)
[2024-12-13] VITALS (53 sets, daily range): BP systolic 122–164; BP diastolic 90–113; TEMP 98.1–98.4; O2SAT 92–100
[2024-12-13 04:53] LABS: PLATELET COUNT (AUTO) 203 K/uL (150-450); RED BLOOD CELL COUNT(AUTO) 3.43 MIL/uL (4.0-5.2); RED CELL DISTRIBUTION WIDTH 22.9 % (11.5-15.0); WHITE BLOOD COUNT (AUTO) 14.6 K/uL (4.3-11.0)
[2024-12-13 05:13] LABS: CALCIUM, SERUM 7.8 mg/dL (8.5-10.1); CREATININE 0.9 mg/dL (0.6-1.3); PHOSPHORUS 3.0 mg/dL (2.5-4.9); SODIUM SERUM 136.0 mmol/L (136-145); UREA NITROGEN, BLOOD 56.0 mg/dL (7-18)
[2024-12-13 05:15] LABS: FIBRINOGEN ACTIVITY 415.0 Mg/dL (213-485); INR 1.09 (0.91-1.10)
[2024-12-13 06:03] LABS: NEUTROPHILS % (MANUAL) 85 (42-76); NUCLEATED RED BLOOD CELLS 87.0 /100WBC (0.0-0.0)
[2024-12-13 06:04] LABS: BAND % (MANUAL) 1 % (0.0-5.0); EOSINOPHILS % (MANUAL) 1 % (0-4); LYMPHOCYTES % (MANUAL) 5 % (16-48); MONOCYTES % (MANUAL) 8 % (0-11.0); PLATELET ESTIMATE ADEQUATE
[2024-12-13] MEDS: PRECEDEX 400 MCG/100 ML BOTTLE 100 ML IV PRN (16:42)
[2024-12-14] VITALS (46 sets, daily range): BP systolic 73–145; BP diastolic 57–119; TEMP 97.6–98.5; O2SAT 97–100
[2024-12-14] MEDS: TPN IV SCH (00:32)
[2024-12-14 07:04] LABS: PLATELET COUNT (AUTO) 219 K/uL (150-450); RED BLOOD CELL COUNT(AUTO) 2.88 MIL/uL (4.0-5.2); RED CELL DISTRIBUTION WIDTH 22.0 % (11.5-15.0); WHITE BLOOD COUNT (AUTO) 11.4 K/uL (4.3-11.0)
[2024-12-14 07:12] LABS: CALCIUM, SERUM 8.2 mg/dL (8.5-10.1); CREATININE 0.9 mg/dL (0.6-1.3); PHOSPHORUS 3.3 mg/dL (2.5-4.9); SODIUM SERUM 141.0 mmol/L (136-145); UREA NITROGEN, BLOOD 61.0 mg/dL (7-18)
[2024-12-14] MEDS: ACETAMINOPHEN 325 MG TABLET PO ONE (08:09)
[2024-12-14] MEDS: POTASSIUM CHLORIDE 20 MEQ POWDER PACKET GT ONE (09:55)
[2024-12-14] MEDS: LORAZEPAM INJ 2 MG/ML VIAL IVP PRN (14:39)
[2024-12-14 17:09] LABS: PLATELET COUNT (AUTO) 219 K/uL (150-450); RED BLOOD CELL COUNT(AUTO) 3.24 MIL/uL (4.0-5.2); RED CELL DISTRIBUTION WIDTH 22.9 % (11.5-15.0); WHITE BLOOD COUNT (AUTO) 14.3 K/uL (4.3-11.0)
[2024-12-14 18:47] LABS: NEUTROPHILS % (MANUAL) 90 (42-76)
[2024-12-14 18:48] LABS: BAND % (MANUAL) 1 % (0.0-5.0); LYMPHOCYTES % (MANUAL) 4 % (16-48); MONOCYTES % (MANUAL) 5 % (0-11.0); PLATELET ESTIMATE ADEQUATE
[2024-12-15] VITALS (87 sets, daily range): BP systolic 77–158; BP diastolic 49–120; TEMP 97.5–100.3; O2SAT 84–100
[2024-12-15] MEDS: MAG HYDROX/AL HYDROX/SIMETH 30 ML UDC PO PRN (00:50)
[2024-12-15 06:26] LABS: PLATELET COUNT (AUTO) 277 K/uL (150-450); RED BLOOD CELL COUNT(AUTO) 3.54 MIL/uL (4.0-5.2); RED CELL DISTRIBUTION WIDTH 21.9 % (11.5-15.0); WHITE BLOOD COUNT (AUTO) 17.1 K/uL (4.3-11.0)
[2024-12-15 06:37] LABS: CALCIUM, SERUM 8.3 mg/dL (8.5-10.1); CREATININE 0.9 mg/dL (0.6-1.3); PHOSPHORUS 2.4 mg/dL (2.5-4.9); SODIUM SERUM 134.0 mmol/L (136-145); UREA NITROGEN, BLOOD 55.0 mg/dL (7-18)
[2024-12-15 09:19] LABS: ABG BASE EXCESS 2.8 mmol/L (-2.0-3.0); ABG OXYGEN SATURATION 86.5 % (94.0-98.0); ABG PCO2 34.5 mmHg (32.0-45.0); ABG PH 7.496 (7.350-7.450); ABG PO2 46.6 mmHg (83.0-108.0); ABG TOTAL HEMOGLOBIN 8.9 G/dL (12.0-16.0); FRACTIONATED INSPIRED OXYGEN 80.0 %; PEEP,BG 5 cm H2O; SET RATE, BG 20.0; SITE, ABG LEFT RADIAL; VT, ABG 400 mL
[2024-12-15] MEDS ORDERED: FENTANYL CITRAT IV 2,500 MCG in IV NS 0.9% 200 ML IV PRN (12:30)
[2024-12-15] MEDS: FENTANYL CITRAT IV 2,500 MCG in IV NS 0.9% 200 ML IV PRN (13:10)
[2024-12-15] MEDS ORDERED: Sodium Phosphate 15 MMOL in IV NS 0.9% 245 ML IV SCH (18:00)
[2024-12-15] MEDS: Sodium Phosphate 15 MMOL in IV NS 0.9% 245 ML IV SCH (21:37)
[2024-12-16] VITALS (83 sets, daily range): BP systolic 94–187; BP diastolic 71–146; TEMP 96–97.8; O2SAT 100
[2024-12-16 03:44] LABS: CALCIUM, SERUM 8.0 mg/dL (8.5-10.1); CREATININE 0.6 mg/dL (0.6-1.3); PHOSPHORUS 3.3 mg/dL (2.5-4.9); SODIUM SERUM 142.0 mmol/L (136-145); UREA NITROGEN, BLOOD 45.0 mg/dL (7-18)
[2024-12-16 03:53] LABS: PLATELET COUNT (AUTO) 238 K/uL (150-450); RED BLOOD CELL COUNT(AUTO) 2.79 MIL/uL (4.0-5.2); RED CELL DISTRIBUTION WIDTH 21.5 % (11.5-15.0); WHITE BLOOD COUNT (AUTO) 10.0 K/uL (4.3-11.0)
[2024-12-16 04:02] LABS: FIBRINOGEN ACTIVITY 299.0 Mg/dL (213-485); INR 1.13 (0.91-1.10)
[2024-12-16 04:29] LABS: EOSINOPHILS % (MANUAL) 3 % (0-4); LYMPHOCYTES % (MANUAL) 6 % (16-48); METAMYELOCYTES % 2 % (0-0); MONOCYTES % (MANUAL) 8 % (0-11.0); NEUTROPHILS % (MANUAL) 81 (42-76); NUCLEATED RED BLOOD CELLS 47.0 /100WBC (0.0-0.0); PLATELET ESTIMATE ADEQUATE
[2024-12-16] MEDS: TPN #26 IV SCH (05:22)
[2024-12-16] MEDS: FENTANYL CITRAT IV 2,500 MCG in IV NS 0.9% 200 ML IV PRN (09:26)
[2024-12-16] MEDS: POTASSIUM CL. PREMIX PERIPHER. 50 ML IV SCH (10:00)
[2024-12-17] VITALS (95 sets, daily range): BP systolic 79–187; BP diastolic 56–134; TEMP 97.5–99.9; O2SAT 93–100
[2024-12-17 04:44] LABS: PLATELET COUNT (AUTO) 273 K/uL (150-450); RED BLOOD CELL COUNT(AUTO) 3.41 MIL/uL (4.0-5.2); RED CELL DISTRIBUTION WIDTH 22.4 % (11.5-15.0); WHITE BLOOD COUNT (AUTO) 10.2 K/uL (4.3-11.0)
[2024-12-17 04:53] LABS: FIBRINOGEN ACTIVITY 405.0 Mg/dL (213-485); INR 1.11 (0.91-1.10)
[2024-12-17 05:34] LABS: ASPARTATE AMINOTRANSFERASE 53.0 U/L (15-37); CALCIUM, SERUM 8.4 mg/dL (8.5-10.1); CREATININE 1.0 mg/dL (0.6-1.3); PHOSPHORUS 3.2 mg/dL (2.5-4.9); SODIUM SERUM 142.0 mmol/L (136-145); TOTAL PROTEIN, SERUM 5.3 g/dL (6.4-8.2); UREA NITROGEN, BLOOD 72.0 mg/dL (7-18)
[2024-12-17 05:51] LABS: LYMPHOCYTES % (MANUAL) 13 % (16-48); MONOCYTES % (MANUAL) 4 % (0-11.0); NEUTROPHILS % (MANUAL) 73 (42-76)
[2024-12-17 05:52] LABS: METAMYELOCYTES % 6 % (0-0); MYELOCYTES % 4 % (0-0); NUCLEATED RED BLOOD CELLS 40.0 /100WBC (0.0-0.0)
[2024-12-17 05:53] LABS: PLATELET ESTIMATE GIANT PLATELET SEEN
[2024-12-17] MEDS: TPN #27 IV SCH (09:00)
[2024-12-17] MEDS: Magnesium 1GM/D5W 100ML PREMIX 100 ML IV SCH (10:50)
[2024-12-18] VITALS (38 sets, daily range): BP systolic 89–163; BP diastolic 59–126; TEMP 97.9–102; O2SAT 93–100
[2024-12-18 00:11] LABS: HEPATITIS A AB, IgM Negative (Negative); HEPATITIS A AB, TOTAL Negative (Negative); HEPATITIS B CORE AB, IgM Negative (Negative); HEPATITIS B CORE AB, TOTAL Negative (Negative)
[2024-12-18 04:33] LABS: PLATELET COUNT (AUTO) 252 K/uL (150-450); RED BLOOD CELL COUNT(AUTO) 2.92 MIL/uL (4.0-5.2); RED CELL DISTRIBUTION WIDTH 22.3 % (11.5-15.0); WHITE BLOOD COUNT (AUTO) 9.0 K/uL (4.3-11.0)
[2024-12-18 04:46] LABS: CALCIUM, SERUM 8.4 mg/dL (8.5-10.1); CREATININE 0.8 mg/dL (0.6-1.3); PHOSPHORUS 3.2 mg/dL (2.5-4.9); SODIUM SERUM 141.0 mmol/L (136-145); UREA NITROGEN, BLOOD 65.0 mg/dL (7-18)
[2024-12-18 05:11] LABS: EOSINOPHILS % (MANUAL) 1 % (0-4); LYMPHOCYTES % (MANUAL) 3 % (16-48); MONOCYTES % (MANUAL) 8 % (0-11.0); NEUTROPHILS % (MANUAL) 88 (42-76); PLATELET ESTIMATE ADEQUATE
[2024-12-18] MEDS: TPN BAG #28 IV SCH (09:28)
[2024-12-18] MEDS: LEVALBUTEROL HCL NEB 1.25 MG/0.5 ML VIAL.NEB NEB PRN (15:11)
[2024-12-18] MEDS: IPRATROPIUM NEB FS 0.5 MG/2.5 ML AMPUL.NEB NEB PRN (15:11)
[2024-12-19] VITALS (87 sets, daily range): BP systolic 83–163; BP diastolic 58–128; TEMP 97.4–101.1; O2SAT 81–100
[2024-12-19 04:23] LABS: PLATELET COUNT (AUTO) 263 K/uL (150-450); RED BLOOD CELL COUNT(AUTO) 2.79 MIL/uL (4.0-5.2); RED CELL DISTRIBUTION WIDTH 23.0 % (11.5-15.0); WHITE BLOOD COUNT (AUTO) 6.7 K/uL (4.3-11.0)
[2024-12-19 04:45] LABS: CALCIUM, SERUM 8.2 mg/dL (8.5-10.1); CREATININE 0.9 mg/dL (0.6-1.3); PHOSPHORUS 3.2 mg/dL (2.5-4.9); SODIUM SERUM 140.0 mmol/L (136-145); UREA NITROGEN, BLOOD 64.0 mg/dL (7-18)
[2024-12-19 05:13] LABS: BAND % (MANUAL) 6 % (0.0-5.0); EOSINOPHILS % (MANUAL) 5 % (0-4); LYMPHOCYTES % (MANUAL) 4 % (16-48); MONOCYTES % (MANUAL) 10 % (0-11.0); NEUTROPHILS % (MANUAL) 75 (42-76)
[2024-12-19 05:14] LABS: MYELOCYTES % 1 % (0-0); NUCLEATED RED BLOOD CELLS 27.0 /100WBC (0.0-0.0); PLATELET ESTIMATE ADEQUATE
[2024-12-19] MEDS: TPN #29 IV SCH (11:59)
[2024-12-19] MEDS: MEROPENEM 500 MG in IV NS 0.9% 50 ML IV SCH (13:05)
[2024-12-19] MEDS: ACETAMINOPHEN 325 MG TABLET PO ONE (18:49)
[2024-12-20] VITALS (42 sets, daily range): BP systolic 99–178; BP diastolic 75–121; TEMP 97.8–101.8; O2SAT 92–100
[2024-12-20 04:08] LABS: PLATELET COUNT (AUTO) 302 K/uL (150-450); RED BLOOD CELL COUNT(AUTO) 3.62 MIL/uL (4.0-5.2); RED CELL DISTRIBUTION WIDTH 22.3 % (11.5-15.0); WHITE BLOOD COUNT (AUTO) 7.7 K/uL (4.3-11.0)
[2024-12-20 04:24] LABS: CALCIUM, SERUM 8.7 mg/dL (8.5-10.1); CREATININE 0.7 mg/dL (0.6-1.3); PHOSPHORUS 2.1 mg/dL (2.5-4.9); SODIUM SERUM 139.0 mmol/L (136-145); UREA NITROGEN, BLOOD 41.0 mg/dL (7-18)
[2024-12-20 05:52] LABS: BAND % (MANUAL) 6 % (0.0-5.0); EOSINOPHILS % (MANUAL) 4 % (0-4); LYMPHOCYTES % (MANUAL) 6 % (16-48); METAMYELOCYTES % 1 % (0-0); MONOCYTES % (MANUAL) 24 % (0-11.0); MYELOCYTES % 1 % (0-0); NEUTROPHILS % (MANUAL) 58 (42-76); NUCLEATED RED BLOOD CELLS 7.0 /100WBC (0.0-0.0)
[2024-12-20 05:54] LABS: PLATELET ESTIMATE ADEQU
[2024-12-20] MEDS: PANTOPRAZOLE 40 MG VIAL IV SCH (08:50)
[2024-12-20] MEDS: TPN BAG #30 IV SCH (13:14)
[2024-12-20] MEDS: Sodium Phosphate 15 MMOL in IV NS 0.9% 245 ML IV SCH (16:23)
[2024-12-21] VITALS (36 sets, daily range): BP systolic 90–168; BP diastolic 62–118; TEMP 97.8–99; O2SAT 95–99
[2024-12-21 03:28] LABS: PLATELET COUNT (AUTO) 379 K/uL (150-450); RED BLOOD CELL COUNT(AUTO) 3.21 MIL/uL (4.0-5.2); RED CELL DISTRIBUTION WIDTH 23.0 % (11.5-15.0); WHITE BLOOD COUNT (AUTO) 9.3 K/uL (4.3-11.0)
[2024-12-21 03:37] LABS: CALCIUM, SERUM 7.9 mg/dL (8.5-10.1); CREATININE 0.7 mg/dL (0.6-1.3); PHOSPHORUS 2.4 mg/dL (2.5-4.9); SODIUM SERUM 136.0 mmol/L (136-145); UREA NITROGEN, BLOOD 37.0 mg/dL (7-18)
[2024-12-21 03:46] LABS: FIBRINOGEN ACTIVITY 384.0 Mg/dL (213-485); INR 1.63 (0.91-1.10)
[2024-12-21 05:17] LABS: BAND % (MANUAL) 7 % (0.0-5.0); EOSINOPHILS % (MANUAL) 1 % (0-4); LYMPHOCYTES % (MANUAL) 8 % (16-48); METAMYELOCYTES % 1 % (0-0); MONOCYTES % (MANUAL) 12 % (0-11.0); MYELOCYTES % 3 % (0-0); NEUTROPHILS % (MANUAL) 68 (42-76); NUCLEATED RED BLOOD CELLS 7.0 /100WBC (0.0-0.0); PLATELET ESTIMATE ADEQUATE
[2024-12-21 08:30] LABS: ABG BASE EXCESS -3.2 mmol/L (-2.0-3.0); ABG OXYGEN SATURATION 84.3 % (94.0-98.0); ABG PCO2 41.4 mmHg (32.0-45.0); ABG PH 7.348 (7.350-7.450); ABG PO2 51.1 mmHg (83.0-108.0); ABG TOTAL HEMOGLOBIN 8.9 G/dL (12.0-16.0); FRACTIONATED INSPIRED OXYGEN 100.0 %; PEEP,BG 10 cm H2O; SET RATE, BG 20.0; VT, ABG 400 mL
[2024-12-21] MEDS: POTASSIUM CL. PREMIX PERIPHER. 50 ML IV SCH (08:49)
[2024-12-21] MEDS: MIDAZOLAM HCL 100 MG in IV NS 0.9% 80 ML IV PRN (10:09)
[2024-12-21] MEDS: PHYTONADIONE INJ 10 MG/1 ML AMPUL SQ ONE (11:02)
[2024-12-21] MEDS ORDERED: TPN/PPN PER PHARMACY IV PRN (14:00)
[2024-12-21] MEDS ORDERED: PPN ADDITIVES 1 EA in AMINO ACIDS 4.25 %/DEXTROSE 5% 1,000 ML IV PRN (14:00)
[2024-12-21] MEDS: Magnesium 1GM/D5W 100ML PREMIX 100 ML IV SCH (15:14)
[2024-12-21] MEDS ORDERED: TPN #31 IV SCH (15:25)
[2024-12-21] MEDS: PPN #1 IV SCH (15:39)
[2024-12-21] MEDS: POTASSIUM PHOSPHATE MM 7.5 MMOL in IV NS 0.9% 100 ML IV SCH (15:40)
[2024-12-22] VITALS (72 sets, daily range): BP systolic 90–161; BP diastolic 60–114; TEMP 97.5–98.5; O2SAT 85–100
[2024-12-22 06:54] LABS: PLATELET COUNT (AUTO) 405 K/uL (150-450); RED BLOOD CELL COUNT(AUTO) 3.15 MIL/uL (4.0-5.2); RED CELL DISTRIBUTION WIDTH 23.6 % (11.5-15.0); WHITE BLOOD COUNT (AUTO) 12.4 K/uL (4.3-11.0)
[2024-12-22 06:57] LABS: FIBRINOGEN ACTIVITY 384.0 Mg/dL (213-485); INR 1.76 (0.91-1.10)
[2024-12-22 07:21] LABS: CALCIUM, SERUM 8.4 mg/dL (8.5-10.1); CREATININE 1.1 mg/dL (0.6-1.3); PHOSPHORUS 4.3 mg/dL (2.5-4.9); SODIUM SERUM 138.0 mmol/L (136-145); UREA NITROGEN, BLOOD 66.0 mg/dL (7-18)
[2024-12-22 13:01] LABS: LYMPHOCYTES % (MANUAL) 9 % (16-48); MONOCYTES % (MANUAL) 10 % (0-11.0); NEUTROPHILS % (MANUAL) 81 (42-76); NUCLEATED RED BLOOD CELLS 58.0 /100WBC (0.0-0.0); PLATELET ESTIMATE ADEQUATE
[2024-12-22 23:40] LABS: PLATELET COUNT (AUTO) 387 K/uL (150-450); RED BLOOD CELL COUNT(AUTO) 3.22 MIL/uL (4.0-5.2); RED CELL DISTRIBUTION WIDTH 24.1 % (11.5-15.0); WHITE BLOOD COUNT (AUTO) 18.2 K/uL (4.3-11.0)
[2024-12-23] VITALS (82 sets, daily range): BP systolic 86–123; BP diastolic 56–92; TEMP 97.4–99.2; O2SAT 85–100
[2024-12-23] MEDS: ACETAMINOPHEN 325 MG TABLET PO ONE (02:23)
[2024-12-23] MEDS: ACETAMINOPHEN 325 MG TABLET ONE (02:42)
[2024-12-23 03:48] LABS: BAND % (MANUAL) 2 % (0.0-5.0); EOSINOPHILS % (MANUAL) 2 % (0-4); LYMPHOCYTES % (MANUAL) 3 % (16-48); METAMYELOCYTES % 1 % (0-0); MONOCYTES % (MANUAL) 12 % (0-11.0); MYELOCYTES % 4 % (0-0); NEUTROPHILS % (MANUAL) 76 (42-76); NUCLEATED RED BLOOD CELLS 9.0 /100WBC (0.0-0.0); PLATELET ESTIMATE ADEQUATE
[2024-12-23 04:35] LABS: PLATELET COUNT (AUTO) 414 K/uL (150-450); RED BLOOD CELL COUNT(AUTO) 3.31 MIL/uL (4.0-5.2); RED CELL DISTRIBUTION WIDTH 24.3 % (11.5-15.0); WHITE BLOOD COUNT (AUTO) 18.9 K/uL (4.3-11.0)
[2024-12-23 04:51] LABS: CALCIUM, SERUM 7.9 mg/dL (8.5-10.1); PHOSPHORUS 3.5 mg/dL (2.5-4.9); SODIUM SERUM 134.0 mmol/L (136-145); UREA NITROGEN, BLOOD 76.0 mg/dL (7-18)
[2024-12-23 05:06] LABS: CREATININE 1.0 mg/dL (0.6-1.3)
[2024-12-23 05:19] LABS: BAND % (MANUAL) 1 % (0.0-5.0); EOSINOPHILS % (MANUAL) 3 % (0-4); LYMPHOCYTES % (MANUAL) 3 % (16-48); METAMYELOCYTES % 2 % (0-0); MONOCYTES % (MANUAL) 8 % (0-11.0); MYELOCYTES % 4 % (0-0); NEUTROPHILS % (MANUAL) 79 (42-76); NUCLEATED RED BLOOD CELLS 6.0 /100WBC (0.0-0.0); PLATELET ESTIMATE ADEQUATE
[2024-12-23 05:55] LABS: INR 1.34 (0.91-1.10)
[2024-12-23 06:09] LABS: FIBRINOGEN ACTIVITY 388.0 Mg/dL (213-485)
[2024-12-23] MEDS: Magnesium 1GM/D5W 100ML PREMIX 100 ML IV SCH ×3 (07:54→23:43)
[2024-12-23] MEDS ORDERED: MAG HYDROX/AL HYDROX/SIMETH 30 ML UDC GT PRN (07:58)
[2024-12-23] MEDS: DOCUSATE SODIUM LIQ 100 MG/10 ML UDC GT SCH (08:05)
[2024-12-23] MEDS: LORAZEPAM 1 MG TABLET GT SCH (08:13)
[2024-12-23] MEDS: POLYETHYLENE GLYCOL 3350 17 GM POWD.PACK GT SCH (21:32)
[2024-12-24] VITALS (49 sets, daily range): BP systolic 89–145; BP diastolic 56–92; TEMP 97.3–98; O2SAT 95–100
[2024-12-24] MEDS: PPN #4 IV SCH (03:37)
[2024-12-24 04:59] LABS: FIBRINOGEN ACTIVITY 477.0 Mg/dL (213-485); INR 1.44 (0.91-1.10)
[2024-12-24 05:00] LABS: CALCIUM, SERUM 8.7 mg/dL (8.5-10.1); CREATININE 0.9 mg/dL (0.6-1.3); PHOSPHORUS 2.8 mg/dL (2.5-4.9); SODIUM SERUM 140.0 mmol/L (136-145); UREA NITROGEN, BLOOD 58.0 mg/dL (7-18)
[2024-12-24 05:04] LABS: PLATELET COUNT (AUTO) 356 K/uL (150-450); RED BLOOD CELL COUNT(AUTO) 3.24 MIL/uL (4.0-5.2); RED CELL DISTRIBUTION WIDTH 24.3 % (11.5-15.0); WHITE BLOOD COUNT (AUTO) 18.2 K/uL (4.3-11.0)
[2024-12-24 05:47] LABS: BAND % (MANUAL) 1 % (0.0-5.0); EOSINOPHILS % (MANUAL) 3 % (0-4); LYMPHOCYTES % (MANUAL) 2 % (16-48); METAMYELOCYTES % 2 % (0-0); MONOCYTES % (MANUAL) 6 % (0-11.0); MYELOCYTES % 4 % (0-0); NEUTROPHILS % (MANUAL) 82 (42-76); NUCLEATED RED BLOOD CELLS 28.0 /100WBC (0.0-0.0); PLATELET ESTIMATE ADEQUATE
[2024-12-24] MEDS ORDERED: METOCLOPRAMIDE HCL 10 MG/2 ML VIAL IV SCH (06:00)
[2024-12-24] MEDS ORDERED: PPN BAG #5 IV SCH ×2 (07:30→19:54)
[2024-12-24 08:20] LABS: ABG BASE EXCESS -2.9 mmol/L (-2.0-3.0); ABG OXYGEN SATURATION 98.0 % (94.0-98.0); ABG PCO2 48.0 mmHg (32.0-45.0); ABG PH 7.306 (7.350-7.450); ABG PO2 110.9 mmHg (83.0-108.0); ABG TOTAL HEMOGLOBIN 8.7 G/dL (12.0-16.0); FRACTIONATED INSPIRED OXYGEN 100.0 %; PEEP,BG 10 cm H2O; SET RATE, BG 20.0; SITE, ABG RIGHT RADIAL; VT, ABG 400 mL
[2024-12-24] MEDS: CHLORHEXIDINE GLUCONATE 15 ML UDC MM SCH (08:27)
[2024-12-24] MEDS ORDERED: DOSE PER PHARMACY VORIconazole/VFEND XX PRN (11:30)
[2024-12-24] MEDS: PHYTONADIONE INJ 10 MG/1 ML AMPUL SQ ONE (11:49)
[2024-12-24] MEDS ORDERED: D5W IV SCH (14:00)
[2024-12-24] MEDS ORDERED: VORICONAZOLE IV SCH (14:00)
[2024-12-24] MEDS: D5W IV SCH (16:19)
[2024-12-24] MEDS: VORICONAZOLE IV SCH (16:19)
[2024-12-24 21:06] LABS: ASPARTATE AMINOTRANSFERASE 541.0 U/L (15-37); TOTAL PROTEIN, SERUM 4.8 g/dL (6.4-8.2)
[2024-12-24] MEDS: PPN BAG #5 IV SCH (21:09)
[2024-12-25] VITALS (32 sets, daily range): BP systolic 80–114; BP diastolic 54–83; TEMP 98–98.8; O2SAT 75–100
[2024-12-25 05:22] LABS: PLATELET COUNT (AUTO) 330 K/uL (150-450); RED BLOOD CELL COUNT(AUTO) 3.24 MIL/uL (4.0-5.2); RED CELL DISTRIBUTION WIDTH 24.7 % (11.5-15.0); WHITE BLOOD COUNT (AUTO) 16.7 K/uL (4.3-11.0)
[2024-12-25 05:51] LABS: CALCIUM, SERUM 8.3 mg/dL (8.5-10.1); CREATININE 0.9 mg/dL (0.6-1.3); PHOSPHORUS 2.1 mg/dL (2.5-4.9); SODIUM SERUM 138.0 mmol/L (136-145); UREA NITROGEN, BLOOD 44.0 mg/dL (7-18)
[2024-12-25 07:04] LABS: BAND % (MANUAL) 1 % (0.0-5.0); EOSINOPHILS % (MANUAL) 2 % (0-4); MONOCYTES % (MANUAL) 3 % (0-11.0); MYELOCYTES % 9 % (0-0); NEUTROPHILS % (MANUAL) 85 (42-76)
[2024-12-25 07:05] LABS: PLATELET ESTIMATE ADEQUATE
[2024-12-25] MEDS: POTASSIUM PHOSPHATE MM 7.5 MMOL in IV NS 0.9% 100 ML IV SCH (11:35)
[2024-12-25] MEDS: PPN BAG #6 IV SCH (13:21)
[2024-12-25 17:41] LABS: FIBRINOGEN ACTIVITY 394.0 Mg/dL (213-485); INR 1.26 (0.91-1.10)
[2024-12-25] MEDS: VORICONAZOLE 200 MG in IV D5W 250 ML IV SCH (20:01)
[2024-12-26] VITALS (29 sets, daily range): BP systolic 92–119; BP diastolic 68–84; TEMP 97.4–98.2; O2SAT 98–100
[2024-12-26 05:51] LABS: CALCIUM, SERUM 8.2 mg/dL (8.5-10.1); CREATININE 0.7 mg/dL (0.6-1.3); PHOSPHORUS 2.3 mg/dL (2.5-4.9); SODIUM SERUM 142.0 mmol/L (136-145); UREA NITROGEN, BLOOD 33.0 mg/dL (7-18)
[2024-12-26 05:54] LABS: PLATELET COUNT (AUTO) 243 K/uL (150-450); RED BLOOD CELL COUNT(AUTO) 3.04 MIL/uL (4.0-5.2); RED CELL DISTRIBUTION WIDTH 24.1 % (11.5-15.0); WHITE BLOOD COUNT (AUTO) 17.3 K/uL (4.3-11.0)
[2024-12-26 05:58] LABS: FIBRINOGEN ACTIVITY 419.0 Mg/dL (213-485); INR 1.26 (0.91-1.10)
[2024-12-26] MEDS: PPN #7 IV SCH (06:36)
[2024-12-26 09:45] LABS: BAND % (MANUAL) 1 % (0.0-5.0); BASOPHILS % (MANUAL) 0 % (0.0-2.0); EOSINOPHILS % (MANUAL) 1 % (0-4); LYMPHOCYTES % (MANUAL) 4 % (16-48); MONOCYTES % (MANUAL) 3 % (0-11.0); NEUTROPHILS % (MANUAL) 91 (42-76); NUCLEATED RED BLOOD CELLS 10.0 /100WBC (0.0-0.0)
[2024-12-26 09:46] LABS: PLATELET ESTIMATE ADEQUATE
[2024-12-26] MEDS: POTASSIUM PHOSPHATE MM 7.5 MMOL in IV NS 0.9% 100 ML IV SCH (12:48)
[2024-12-26] MEDS: PPN #8 IV SCH (23:47)
[2024-12-27] VITALS (43 sets, daily range): BP systolic 99–118; BP diastolic 69–85; TEMP 97.5–97.8; O2SAT 100
[2024-12-27 06:06] LABS: CALCIUM, SERUM 8.1 mg/dL (8.5-10.1); CREATININE 0.5 mg/dL (0.6-1.3); PHOSPHORUS 2.3 mg/dL (2.5-4.9); SODIUM SERUM 139.0 mmol/L (136-145); UREA NITROGEN, BLOOD 29.0 mg/dL (7-18)
[2024-12-27 08:09] LABS: COMPLEMENT C3, SERUM 81 mg/dL (82-167); COMPLEMENT C4, SERUM 7 mg/dL (12-38)
[2024-12-27] MEDS: Magnesium 1GM/D5W 100ML PREMIX 100 ML IV SCH (10:12)
[2024-12-27] MEDS: Sodium Phosphate 15 MMOL in IV NS 0.9% 245 ML IV SCH (12:38)
[2024-12-27 13:35] LABS: ASPARTATE AMINOTRANSFERASE 62.0 U/L (15-37); TOTAL PROTEIN, SERUM 4.7 g/dL (6.4-8.2)
[2024-12-27 15:44] LABS: FIBRINOGEN ACTIVITY 439.0 Mg/dL (213-485); INR 1.09 (0.91-1.10)
[2024-12-27] MEDS: PPN #9 IV SCH (16:20)
[2024-12-27] MEDS: IV NS 0.9% 250 ML IV PRN (21:40)
[2024-12-28] VITALS (47 sets, daily range): BP systolic 120–160; BP diastolic 84–100; TEMP 96.6–98.6; O2SAT 100
[2024-12-28 04:20] LABS: PLATELET COUNT (AUTO) 252 K/uL (150-450); RED BLOOD CELL COUNT(AUTO) 3.09 MIL/uL (4.0-5.2); RED CELL DISTRIBUTION WIDTH 24.1 % (11.5-15.0); WHITE BLOOD COUNT (AUTO) 16.2 K/uL (4.3-11.0)
[2024-12-28 04:33] LABS: CALCIUM, SERUM 8.3 mg/dL (8.5-10.1); CREATININE 0.6 mg/dL (0.6-1.3); PHOSPHORUS 2.2 mg/dL (2.5-4.9); SODIUM SERUM 137.0 mmol/L (136-145); UREA NITROGEN, BLOOD 28.0 mg/dL (7-18)
[2024-12-28 05:36] LABS: BAND % (MANUAL) 1 % (0.0-5.0); LYMPHOCYTES % (MANUAL) 16 % (16-48); MONOCYTES % (MANUAL) 3 % (0-11.0); NEUTROPHILS % (MANUAL) 80 (42-76); PLATELET ESTIMATE ADEQUATE
[2024-12-28 06:07] LABS: *ANA ANTI-CENTROMERE B AB <0.2 AI (0.0-0.9); *ANA ANTI-DNA(DS) AB, QN 1 IU/mL (0-9); *ANA ANTI-JO-1 <0.2 AI (0.0-0.9); *ANA ANTICHROMATIN ANTIBODY >8.0 AI (0.0-0.9); *ANA RNP ANTIBODIES <0.2 AI (0.0-0.9); *ANA SJOGREN'S ANTI-SS-A <0.2 AI (0.0-0.9); *ANA SJOGREN'S ANTI-SS-B <0.2 AI (0.0-0.9); *ANAANTI-SCLERODERMA-70 AB <0.2 AI (0.0-0.9); *ANASMITH AB <0.2 AI (0.0-0.9)
[2024-12-28] MEDS: PPN #10 IV SCH (09:36)
[2024-12-28] MEDS: QUETIAPINE FUMARATE 25 MG TABLET PO SCH (10:44)
[2024-12-29] VITALS (59 sets, daily range): BP systolic 121–181; BP diastolic 85–118; TEMP 97–98.2; O2SAT 87–100
[2024-12-29 05:02] LABS: PLATELET COUNT (AUTO) 252 K/uL (150-450); RED BLOOD CELL COUNT(AUTO) 3.49 MIL/uL (4.0-5.2); RED CELL DISTRIBUTION WIDTH 23.8 % (11.5-15.0); WHITE BLOOD COUNT (AUTO) 13.3 K/uL (4.3-11.0)
[2024-12-29] MEDS: PPN #11 IV SCH (05:25)
[2024-12-29 05:28] LABS: FIBRINOGEN ACTIVITY 439.0 Mg/dL (213-485); INR 1.16 (0.91-1.10)
[2024-12-29 06:07] LABS: BAND % (MANUAL) 6 % (0.0-5.0); BASOPHILS % (MANUAL) 1 % (0.0-2.0); LYMPHOCYTES % (MANUAL) 2 % (16-48); METAMYELOCYTES % 2 % (0-0); MONOCYTES % (MANUAL) 4 % (0-11.0); MYELOCYTES % 5 % (0-0); NEUTROPHILS % (MANUAL) 80 (42-76); NUCLEATED RED BLOOD CELLS 2.0 /100WBC (0.0-0.0); PLATELET ESTIMATE ADEQUATE
[2024-12-29 06:13] LABS: CALCIUM, SERUM 7.8 mg/dL (8.5-10.1); CREATININE 0.5 mg/dL (0.6-1.3); PHOSPHORUS 1.4 mg/dL (2.5-4.9); SODIUM SERUM 135.0 mmol/L (136-145); UREA NITROGEN, BLOOD 24.0 mg/dL (7-18)
[2024-12-29] MEDS: POTASSIUM CL. PREMIX PERIPHER. 50 ML IV SCH (09:04)
[2024-12-29] MEDS: Magnesium 1GM/D5W 100ML PREMIX 100 ML IV SCH (09:04)
[2024-12-29] MEDS: POTASSIUM PHOSPHATE MM 7.5 MMOL in IV NS 0.9% 100 ML IV SCH (12:50)
[2024-12-29] MEDS: PPN #12 IV SCH (19:50)
[2024-12-30] VITALS (40 sets, daily range): BP systolic 112–155; BP diastolic 77–107; TEMP 96.6–98.5; O2SAT 91–100
[2024-12-30 03:50] LABS: PLATELET COUNT (AUTO) 284 K/uL (150-450); RED BLOOD CELL COUNT(AUTO) 3.50 MIL/uL (4.0-5.2); RED CELL DISTRIBUTION WIDTH 24.0 % (11.5-15.0); WHITE BLOOD COUNT (AUTO) 13.0 K/uL (4.3-11.0)
[2024-12-30 04:02] LABS: ASPARTATE AMINOTRANSFERASE 62.0 U/L (15-37); CALCIUM, SERUM 7.7 mg/dL (8.5-10.1); CREATININE 0.4 mg/dL (0.6-1.3); PHOSPHORUS 1.7 mg/dL (2.5-4.9); SODIUM SERUM 137.0 mmol/L (136-145); TOTAL PROTEIN, SERUM 4.6 g/dL (6.4-8.2); UREA NITROGEN, BLOOD 21.0 mg/dL (7-18)
[2024-12-30 04:06] LABS: FIBRINOGEN ACTIVITY 415.0 Mg/dL (213-485); INR 1.21 (0.91-1.10)
[2024-12-30 05:55] LABS: BAND % (MANUAL) 1 % (0.0-5.0); LYMPHOCYTES % (MANUAL) 23 % (16-48); MONOCYTES % (MANUAL) 10 % (0-11.0); MYELOCYTES % 2 % (0-0); NEUTROPHILS % (MANUAL) 64 (42-76); PLATELET ESTIMATE ADEQUATE
[2024-12-30] MEDS: POTASSIUM CL. PREMIX PERIPHER. 50 ML IV SCH (08:04)
[2024-12-30] MEDS: POTASSIUM PHOSPHATE MM 5 MMOL in IV NS 0.9% 100 ML IV SCH (09:15)
[2024-12-30] MEDS: PPN #13 IV SCH (12:34)
[2024-12-31] VITALS (46 sets, daily range): BP systolic 116–173; BP diastolic 83–107; TEMP 98–98.9; O2SAT 89–100
[2024-12-31] MEDS: PPN #14 IV SCH (04:46)
[2024-12-31 05:12] LABS: PLATELET COUNT (AUTO) 320 K/uL (150-450); RED BLOOD CELL COUNT(AUTO) 3.56 MIL/uL (4.0-5.2); RED CELL DISTRIBUTION WIDTH 24.7 % (11.5-15.0); WHITE BLOOD COUNT (AUTO) 13.6 K/uL (4.3-11.0)
[2024-12-31 05:27] LABS: FIBRINOGEN ACTIVITY 400.0 Mg/dL (213-485); INR 1.17 (0.91-1.10)
[2024-12-31 05:41] LABS: CALCIUM, SERUM 7.7 mg/dL (8.5-10.1); CREATININE 0.3 mg/dL (0.6-1.3); PHOSPHORUS 1.5 mg/dL (2.5-4.9); SODIUM SERUM 133.0 mmol/L (136-145); UREA NITROGEN, BLOOD 27.0 mg/dL (7-18)
[2024-12-31 05:45] LABS: BAND % (MANUAL) 5 % (0.0-5.0); EOSINOPHILS % (MANUAL) 2 % (0-4); LYMPHOCYTES % (MANUAL) 25 % (16-48); METAMYELOCYTES % 3 % (0-0); MONOCYTES % (MANUAL) 7 % (0-11.0); MYELOCYTES % 3 % (0-0); NEUTROPHILS % (MANUAL) 55 (42-76); NUCLEATED RED BLOOD CELLS 2.0 /100WBC (0.0-0.0); PLATELET ESTIMATE ADEQUATE
[2024-12-31] MEDS ORDERED: POTASSIUM PHOSPHATE MM 15 MMOL in IV NS 0.9% 250 ML IV SCH (10:00)
[2024-12-31] MEDS: Magnesium 1GM/D5W 100ML PREMIX 100 ML IV SCH (10:18)
[2024-12-31] MEDS: POTASSIUM PHOSPHATE MM 7.5 MMOL in IV NS 0.9% 100 ML IV SCH (12:25)
[2024-12-31] MEDS: ERYTHROMYCIN 250 MG in IV NS 0.9% 100 ML IV SCH (18:35)
[2024-12-31] MEDS: PPN #15 IV SCH (21:01)
[2025-01-01] VITALS (53 sets, daily range): BP systolic 117–177; BP diastolic 80–106; TEMP 97.7–98.7; O2SAT 91–100
[2025-01-01 05:03] LABS: PLATELET COUNT (AUTO) 392 K/uL (150-450); RED BLOOD CELL COUNT(AUTO) 3.48 MIL/uL (4.0-5.2); RED CELL DISTRIBUTION WIDTH 25.4 % (11.5-15.0); WHITE BLOOD COUNT (AUTO) 19.9 K/uL (4.3-11.0)
[2025-01-01 05:13] LABS: CALCIUM, SERUM 8.6 mg/dL (8.5-10.1); CREATININE 0.4 mg/dL (0.6-1.3); PHOSPHORUS 2.0 mg/dL (2.5-4.9); SODIUM SERUM 137.0 mmol/L (136-145); UREA NITROGEN, BLOOD 24.0 mg/dL (7-18)
[2025-01-01 05:43] LABS: LYMPHOCYTES % (MANUAL) 4 % (16-48); MONOCYTES % (MANUAL) 13 % (0-11.0); NEUTROPHILS % (MANUAL) 83 (42-76)
[2025-01-01 05:44] LABS: NUCLEATED RED BLOOD CELLS 5.0 /100WBC (0.0-0.0); PLATELET ESTIMATE ADEQUATE
[2025-01-01 05:53] LABS: FIBRINOGEN ACTIVITY 522.0 Mg/dL (213-485); INR 1.13 (0.91-1.10)
[2025-01-01] MEDS: POTASSIUM PHOSPHATE MM 7.5 MMOL in IV NS 0.9% 100 ML IV SCH ×2 (10:16→13:19)
[2025-01-01] MEDS: PPN #16 IV SCH (15:17)
[2025-01-01] MEDS: Magnesium 1GM/D5W 100ML PREMIX 100 ML IV SCH (20:25)
[2025-01-02] VITALS (43 sets, daily range): BP systolic 110–145; BP diastolic 72–98; TEMP 98.5–99.7; O2SAT 92–100
[2025-01-02 05:09] LABS: PLATELET COUNT (AUTO) 383 K/uL (150-450); RED BLOOD CELL COUNT(AUTO) 3.07 MIL/uL (4.0-5.2); RED CELL DISTRIBUTION WIDTH 25.3 % (11.5-15.0); WHITE BLOOD COUNT (AUTO) 16.5 K/uL (4.3-11.0)
[2025-01-02 05:27] LABS: CALCIUM, SERUM 7.9 mg/dL (8.5-10.1); CREATININE 0.7 mg/dL (0.6-1.3); PHOSPHORUS 2.7 mg/dL (2.5-4.9); SODIUM SERUM 137.0 mmol/L (136-145); UREA NITROGEN, BLOOD 38.0 mg/dL (7-18)
[2025-01-02 05:37] LABS: FIBRINOGEN ACTIVITY 469.0 Mg/dL (213-485); INR 1.14 (0.91-1.10)
[2025-01-02 05:55] LABS: NUCLEATED RED BLOOD CELLS 4.0 /100WBC (0.0-0.0)
[2025-01-02 05:56] LABS: EOSINOPHILS % (MANUAL) 4 % (0-4); LYMPHOCYTES % (MANUAL) 6 % (16-48); MONOCYTES % (MANUAL) 8 % (0-11.0); NEUTROPHILS % (MANUAL) 82 (42-76)
[2025-01-02 05:58] LABS: PLATELET ESTIMATE ADEQUATE
[2025-01-02] MEDS: PPN #17 IV SCH (08:03)
[2025-01-02] MEDS: ERYTHROMYCIN ETHYLSUCCINATE 200 MG/5 ML SUSPENSION NG SCH (13:21)
[2025-01-02 16:38] LABS: IRON, SERUM 11 ug/dl (50-175)
[2025-01-02] MEDS ORDERED: LORAZEPAM 1 MG TABLET PO PRN (20:00)
[2025-01-02] MEDS: MAGNESIUM HYDROXIDE 30 ML UDC GT PRN (21:20)
[2025-01-03] VITALS (52 sets, daily range): BP systolic 100–156; BP diastolic 67–100; TEMP 98.2–99.2; O2SAT 10–100
[2025-01-03 05:01] LABS: CALCIUM, SERUM 8.3 mg/dL (8.5-10.1); CREATININE 0.6 mg/dL (0.6-1.3); PHOSPHORUS 2.3 mg/dL (2.5-4.9); UREA NITROGEN, BLOOD 30.0 mg/dL (7-18)
[2025-01-03 05:04] LABS: LDL 64.0 mg/dL (0-99)
[2025-01-03 05:09] LABS: SODIUM SERUM 138.0 mmol/L (136-145)
[2025-01-03] MEDS: QUETIAPINE FUMARATE 100 MG TABLET PO SCH (16:04)
[2025-01-03] MEDS: POTASSIUM PHOSPHATE MM 5 MMOL in IV NS 0.9% 100 ML IV SCH (17:01)
[2025-01-03 18:42] LABS: PLATELET COUNT (AUTO) 435 K/uL (150-450); RED BLOOD CELL COUNT(AUTO) 3.46 MIL/uL (4.0-5.2); RED CELL DISTRIBUTION WIDTH 25.4 % (11.5-15.0); WHITE BLOOD COUNT (AUTO) 18.2 K/uL (4.3-11.0)
[2025-01-04] VITALS (65 sets, daily range): BP systolic 95–166; BP diastolic 62–108; TEMP 97.9–99.3; O2SAT 97–100
[2025-01-04 01:10] LABS: EOSINOPHILS % (MANUAL) 3 % (0-4); LYMPHOCYTES % (MANUAL) 11 % (16-48); MONOCYTES % (MANUAL) 9 % (0-11.0); NEUTROPHILS % (MANUAL) 77 (42-76); PLATELET ESTIMATE ADEQUATE
[2025-01-04 04:21] LABS: PLATELET COUNT (AUTO) 402 K/uL (150-450); RED BLOOD CELL COUNT(AUTO) 3.25 MIL/uL (4.0-5.2); RED CELL DISTRIBUTION WIDTH 25.9 % (11.5-15.0); WHITE BLOOD COUNT (AUTO) 17.5 K/uL (4.3-11.0)
[2025-01-04 04:33] LABS: CALCIUM, SERUM 8.4 mg/dL (8.5-10.1); CREATININE 0.6 mg/dL (0.6-1.3); PHOSPHORUS 2.3 mg/dL (2.5-4.9); SODIUM SERUM 138.0 mmol/L (136-145); UREA NITROGEN, BLOOD 25.0 mg/dL (7-18)
[2025-01-04 05:25] LABS: LYMPHOCYTES % (MANUAL) 7 % (16-48); MONOCYTES % (MANUAL) 5 % (0-11.0); NEUTROPHILS % (MANUAL) 88 (42-76); PLATELET ESTIMATE ADEQUATE
[2025-01-04 07:23] LABS: ABG BASE EXCESS 2.6 mmol/L (-2.0-3.0); ABG OXYGEN SATURATION 95.9 % (94.0-98.0); ABG PCO2 37.0 mmHg (32.0-45.0); ABG PH 7.470 (7.350-7.450); ABG PO2 78.2 mmHg (83.0-108.0); ABG TOTAL HEMOGLOBIN 8.6 G/dL (12.0-16.0); FRACTIONATED INSPIRED OXYGEN 50.0 %; PEEP,BG 10 cm H2O; SET RATE, BG 20.0; SITE, ABG RIGHT RADIAL; VT, ABG 400 mL
[2025-01-04] MEDS: NEUTRA PHOS 1 POWD.PACKET NG ONE (16:01)
[2025-01-04] MEDS: ATROPINE SULFATE OPHTH SOLN 15 ML BOTTLE SL PRN (18:02)
[2025-01-05] VITALS (97 sets, daily range): BP systolic 113–171; BP diastolic 77–113; TEMP 97.9–100; O2SAT 90–100
[2025-01-05] MEDS: ACETAMINOPHEN 650 MG/20.3 ML UDC GT PRN (03:59)
[2025-01-05 04:07] LABS: HEPATITIS B CORE AB, IgM Negative (Negative); HEPATITIS B CORE AB, TOTAL Negative (Negative)
[2025-01-05 04:52] LABS: CALCIUM, SERUM 8.5 mg/dL (8.5-10.1); CREATININE 0.6 mg/dL (0.6-1.3); SODIUM SERUM 142.0 mmol/L (136-145); UREA NITROGEN, BLOOD 22.0 mg/dL (7-18)
[2025-01-05 05:00] LABS: PLATELET COUNT (AUTO) 443 K/uL (150-450); RED BLOOD CELL COUNT(AUTO) 3.10 MIL/uL (4.0-5.2); RED CELL DISTRIBUTION WIDTH 27.5 % (11.5-15.0); WHITE BLOOD COUNT (AUTO) 20.1 K/uL (4.3-11.0)
[2025-01-05 05:07] LABS: FIBRINOGEN ACTIVITY 461.0 Mg/dL (213-485); INR 1.28 (0.91-1.10)
[2025-01-05 06:02] LABS: LYMPHOCYTES % (MANUAL) 11 % (16-48); MONOCYTES % (MANUAL) 10 % (0-11.0); NEUTROPHILS % (MANUAL) 79 (42-76); PLATELET ESTIMATE ADEQUATE
[2025-01-05] MEDS ORDERED: DOSING PER PHARMACY-CEFEPIME IVPB XX PRN (10:00)
[2025-01-05] MEDS ORDERED: DOSING PER PHARMACY-VANCOMYCIN IV XX PRN (10:00)
[2025-01-05 10:02] LABS: PLATELET COUNT (AUTO) 433 K/uL (150-450); RED BLOOD CELL COUNT(AUTO) 3.17 MIL/uL (4.0-5.2); RED CELL DISTRIBUTION WIDTH 27.7 % (11.5-15.0); WHITE BLOOD COUNT (AUTO) 21.1 K/uL (4.3-11.0)
[2025-01-05 11:15] LABS: LYMPHOCYTES % (MANUAL) 1 % (16-48); MONOCYTES % (MANUAL) 4 % (0-11.0); MYELOCYTES % 2 % (0-0); NEUTROPHILS % (MANUAL) 93 (42-76); PLATELET ESTIMATE ADEQUATE
[2025-01-05] MEDS: CEFEPIME 1 GM in IV D5W 50 ML IV SCH (11:47)
[2025-01-05] MEDS: QUETIAPINE FUMARATE 100 MG TABLET PO SCH (16:10)
[2025-01-05] MEDS: ACETAMINOPHEN 325 MG TABLET PO ONE (19:34)
[2025-01-05] MEDS: VANCOMYCIN 1 GM in IV D5W 250 ML IV ONE (20:51)
[2025-01-06] VITALS (51 sets, daily range): BP systolic 100–153; BP diastolic 75–98; TEMP 98.2–98.7; O2SAT 97–100
[2025-01-06 04:37] LABS: PLATELET COUNT (AUTO) 386 K/uL (150-450); RED BLOOD CELL COUNT(AUTO) 3.15 MIL/uL (4.0-5.2); RED CELL DISTRIBUTION WIDTH 26.0 % (11.5-15.0); WHITE BLOOD COUNT (AUTO) 21.1 K/uL (4.3-11.0)
[2025-01-06 04:51] LABS: CALCIUM, SERUM 8.7 mg/dL (8.5-10.1); CREATININE 0.6 mg/dL (0.6-1.3); SODIUM SERUM 142.0 mmol/L (136-145); UREA NITROGEN, BLOOD 23.0 mg/dL (7-18)
[2025-01-06 05:09] LABS: FIBRINOGEN ACTIVITY 522.0 Mg/dL (213-485); INR 1.33 (0.91-1.10)
[2025-01-06 05:51] LABS: LYMPHOCYTES % (MANUAL) 5 % (16-48); MONOCYTES % (MANUAL) 10 % (0-11.0); NEUTROPHILS % (MANUAL) 85 (42-76); PLATELET ESTIMATE ADEQUATE
[2025-01-07] VITALS (46 sets, daily range): BP systolic 110–147; BP diastolic 72–100; TEMP 98–100.5; O2SAT 98–100
[2025-01-07 04:54] LABS: PLATELET COUNT (AUTO) 438 K/uL (150-450); RED BLOOD CELL COUNT(AUTO) 3.08 MIL/uL (4.0-5.2); RED CELL DISTRIBUTION WIDTH 27.0 % (11.5-15.0); WHITE BLOOD COUNT (AUTO) 16.8 K/uL (4.3-11.0)
[2025-01-07 05:02] LABS: ASPARTATE AMINOTRANSFERASE 20.0 U/L (15-37); CALCIUM, SERUM 8.6 mg/dL (8.5-10.1); CREATININE 0.5 mg/dL (0.6-1.3); PHOSPHORUS 1.6 mg/dL (2.5-4.9); SODIUM SERUM 140.0 mmol/L (136-145); TOTAL PROTEIN, SERUM 5.6 g/dL (6.4-8.2); UREA NITROGEN, BLOOD 24.0 mg/dL (7-18)
[2025-01-07 05:07] LABS: FIBRINOGEN ACTIVITY 477.0 Mg/dL (213-485); INR 1.26 (0.91-1.10)
[2025-01-07 06:23] LABS: EOSINOPHILS % (MANUAL) 2 % (0-4); LYMPHOCYTES % (MANUAL) 9 % (16-48); MONOCYTES % (MANUAL) 9 % (0-11.0); NEUTROPHILS % (MANUAL) 80 (42-76); PLATELET ESTIMATE ADEQUATE
[2025-01-07 06:24] LABS: NUCLEATED RED BLOOD CELLS 5.0 /100WBC (0.0-0.0)
[2025-01-07] MEDS: NEUTRA PHOS 1 POWD.PACKET PO ONE (10:08)
[2025-01-07] MEDS: Sodium Phosphate 15 MMOL in IV NS 0.9% 245 ML IV SCH (16:05)
[2025-01-07] MEDS: QUETIAPINE FUMARATE 100 MG TABLET GT SCH (17:49)
[2025-01-08] VITALS (73 sets, daily range): BP systolic 107–131; BP diastolic 70–91; TEMP 97.5–98.3; O2SAT 99–100
[2025-01-08] MEDS: VANCOMYCIN 500 MG in IV D5W 100 ML IV PRN (04:51)
[2025-01-08 05:02] LABS: PLATELET COUNT (AUTO) 462 K/uL (150-450); RED BLOOD CELL COUNT(AUTO) 3.14 MIL/uL (4.0-5.2); RED CELL DISTRIBUTION WIDTH 28.3 % (11.5-15.0); WHITE BLOOD COUNT (AUTO) 13.3 K/uL (4.3-11.0)
[2025-01-08 05:10] LABS: CALCIUM, SERUM 9.0 mg/dL (8.5-10.1); CREATININE 0.3 mg/dL (0.6-1.3); SODIUM SERUM 141.0 mmol/L (136-145); UREA NITROGEN, BLOOD 15.0 mg/dL (7-18)
[2025-01-08 06:17] LABS: EOSINOPHILS % (MANUAL) 6 % (0-4); LYMPHOCYTES % (MANUAL) 7 % (16-48); MONOCYTES % (MANUAL) 8 % (0-11.0); NEUTROPHILS % (MANUAL) 76 (42-76)
[2025-01-08 06:18] LABS: METAMYELOCYTES % 1 % (0-0); MYELOCYTES % 2 % (0-0); NUCLEATED RED BLOOD CELLS 3.0 /100WBC (0.0-0.0); PLATELET ESTIMATE INCREASED
[2025-01-08] MEDS ORDERED: QUETIAPINE FUMARATE 100 MG TABLET PO SCH (08:00)
[2025-01-09] VITALS (102 sets, daily range): BP systolic 110–153; BP diastolic 68–100; TEMP 97.2–99.2; O2SAT 100
[2025-01-09 04:49] LABS: PLATELET COUNT (AUTO) 516 K/uL (150-450); RED BLOOD CELL COUNT(AUTO) 3.12 MIL/uL (4.0-5.2); RED CELL DISTRIBUTION WIDTH 29.2 % (11.5-15.0); WHITE BLOOD COUNT (AUTO) 13.3 K/uL (4.3-11.0)
[2025-01-09 05:08] LABS: CALCIUM, SERUM 9.0 mg/dL (8.5-10.1); CREATININE 0.5 mg/dL (0.6-1.3); SODIUM SERUM 142.0 mmol/L (136-145); UREA NITROGEN, BLOOD 18.0 mg/dL (7-18)
[2025-01-09 05:12] LABS: PHOSPHORUS 2.5 mg/dL (2.5-4.9)
[2025-01-09 12:55] LABS: EOSINOPHILS % (MANUAL) 2 % (0-4); LYMPHOCYTES % (MANUAL) 5 % (16-48); MONOCYTES % (MANUAL) 14 % (0-11.0); NEUTROPHILS % (MANUAL) 79 (42-76); PLATELET ESTIMATE ADEQUATE
[2025-01-09] MEDS ORDERED: PEG 3350/NA SULF,BICARB,CL/KCL 4,000 ML BOTTLE ONE (22:52)
[2025-01-10] VITALS (45 sets, daily range): BP systolic 111–160; BP diastolic 75–98; TEMP 97–98; O2SAT 98–100
[2025-01-10] MEDS: PEG 3350/NA SULF,BICARB,CL/KCL 4,000 ML BOTTLE PO ONE (01:31)
[2025-01-10] MEDS ORDERED: VANCOMYCIN 500 MG VIAL ONE (02:08)
[2025-01-10 05:52] LABS: PLATELET COUNT (AUTO) 520 K/uL (150-450); RED BLOOD CELL COUNT(AUTO) 3.85 MIL/uL (4.0-5.2); RED CELL DISTRIBUTION WIDTH 28.1 % (11.5-15.0); WHITE BLOOD COUNT (AUTO) 13.3 K/uL (4.3-11.0)
[2025-01-10 06:06] LABS: CALCIUM, SERUM 8.2 mg/dL (8.5-10.1); CREATININE 0.5 mg/dL (0.6-1.3); SODIUM SERUM 140.0 mmol/L (136-145); UREA NITROGEN, BLOOD 15.0 mg/dL (7-18)
[2025-01-10 06:07] LABS: PHOSPHORUS 2.3 mg/dL (2.5-4.9)
[2025-01-10] MEDS ORDERED: PEG 3350/NA SULF,BICARB,CL/KCL 4,000 ML BOTTLE PO ONE (08:00)
[2025-01-10 11:22] LABS: BASOPHILS % (MANUAL) 0 % (0.0-2.0); EOSINOPHILS % (MANUAL) 5 % (0-4); LYMPHOCYTES % (MANUAL) 9 % (16-48); MONOCYTES % (MANUAL) 11 % (0-11.0); NEUTROPHILS % (MANUAL) 75 (42-76); PLATELET ESTIMATE ADEQUATE
[2025-01-10] MEDS ORDERED: NEUTRA PHOS 1 POWD.PACKET NG ONE (16:00)
[2025-01-10] MEDS ORDERED: ANESTHESIA TRAY IN PYXIS 1 EA TRAY MC ONE (16:04)
[2025-01-10] MEDS: Sodium Phosphate 15 MMOL in IV NS 0.9% 245 ML IV ONE (16:38)
[2025-01-10] MEDS: LORAZEPAM 1 MG TABLET GT PRN (22:29)
[2025-01-11] VITALS (45 sets, daily range): BP systolic 123–152; BP diastolic 75–98; TEMP 97.8–100; O2SAT 97–100
[2025-01-11 03:53] LABS: PLATELET COUNT (AUTO) 576 K/uL (150-450); RED BLOOD CELL COUNT(AUTO) 4.22 MIL/uL (4.0-5.2); RED CELL DISTRIBUTION WIDTH 28.3 % (11.5-15.0); WHITE BLOOD COUNT (AUTO) 13.6 K/uL (4.3-11.0)
[2025-01-11 04:06] LABS: PHOSPHORUS 3.0 mg/dL (2.5-4.9)
[2025-01-11 04:39] LABS: MONOCYTES % (MANUAL) 4 % (0-11.0)
[2025-01-11 04:41] LABS: EOSINOPHILS % (MANUAL) 2 % (0-4); LYMPHOCYTES % (MANUAL) 13 % (16-48); NEUTROPHILS % (MANUAL) 81 (42-76); PLATELET ESTIMATE INCREASED
[2025-01-11 06:48] LABS: CALCIUM, SERUM 8.8 mg/dL (8.5-10.1); CREATININE 0.7 mg/dL (0.6-1.3); SODIUM SERUM 141.0 mmol/L (136-145); UREA NITROGEN, BLOOD 13.0 mg/dL (7-18)
[2025-01-11] MEDS: POTASSIUM CHLORIDE 20 MEQ POWDER PACKET NG SCH (08:17)
[2025-01-12] VITALS (55 sets, daily range): BP systolic 101–154; BP diastolic 58–92; TEMP 98.6–99.8; O2SAT 98–100
[2025-01-12 04:05] LABS: CALCIUM, SERUM 8.7 mg/dL (8.5-10.1); CREATININE 0.6 mg/dL (0.6-1.3); SODIUM SERUM 144.0 mmol/L (136-145); UREA NITROGEN, BLOOD 11.0 mg/dL (7-18)
[2025-01-12 04:23] LABS: PLATELET COUNT (AUTO) 614 K/uL (150-450); RED BLOOD CELL COUNT(AUTO) 4.21 MIL/uL (4.0-5.2); RED CELL DISTRIBUTION WIDTH 29.8 % (11.5-15.0); WHITE BLOOD COUNT (AUTO) 17.9 K/uL (4.3-11.0)
[2025-01-12 04:38] LABS: PHOSPHORUS 2.1 mg/dL (2.5-4.9)
[2025-01-12 04:55] LABS: NUCLEATED RED BLOOD CELLS 7.0 /100WBC (0.0-0.0)
[2025-01-12 04:56] LABS: EOSINOPHILS % (MANUAL) 7 % (0-4); LYMPHOCYTES % (MANUAL) 6 % (16-48); MONOCYTES % (MANUAL) 2 % (0-11.0); NEUTROPHILS % (MANUAL) 85 (42-76); PLATELET ESTIMATE INCREASED
[2025-01-12] MEDS: NEUTRA PHOS 1 POWD.PACKET PO ONE (09:48)
[2025-01-13] VITALS (49 sets, daily range): BP systolic 121–159; BP diastolic 77–99; TEMP 98.2–100.9; O2SAT 100
[2025-01-13 04:26] LABS: PLATELET COUNT (AUTO) 493 K/uL (150-450); RED BLOOD CELL COUNT(AUTO) 3.94 MIL/uL (4.0-5.2); RED CELL DISTRIBUTION WIDTH 30.2 % (11.5-15.0); WHITE BLOOD COUNT (AUTO) 18.4 K/uL (4.3-11.0)
[2025-01-13 04:38] LABS: ASPARTATE AMINOTRANSFERASE 27.0 U/L (15-37); CALCIUM, SERUM 9.3 mg/dL (8.5-10.1); CREATININE 0.7 mg/dL (0.6-1.3); PHOSPHORUS 1.8 mg/dL (2.5-4.9); SODIUM SERUM 141.0 mmol/L (136-145); TOTAL PROTEIN, SERUM 6.1 g/dL (6.4-8.2); UREA NITROGEN, BLOOD 13.0 mg/dL (7-18)
[2025-01-13 04:40] LABS: FIBRINOGEN ACTIVITY 266.0 Mg/dL (213-485); INR 1.23 (0.91-1.10)
[2025-01-13 05:25] LABS: BAND % (MANUAL) 1 % (0.0-5.0); EOSINOPHILS % (MANUAL) 7 % (0-4); LYMPHOCYTES % (MANUAL) 8 % (16-48); MONOCYTES % (MANUAL) 5 % (0-11.0); NEUTROPHILS % (MANUAL) 79 (42-76); PLATELET ESTIMATE INCREASED
[2025-01-14] VITALS (34 sets, daily range): BP systolic 120–157; BP diastolic 76–101; TEMP 97.8–101.2; O2SAT 100
[2025-01-14 04:30] LABS: WHITE BLOOD COUNT (AUTO) 19.6 K/uL (4.3-11.0)
[2025-01-14 04:36] LABS: PLATELET COUNT (AUTO) 460 K/uL (150-450); RED BLOOD CELL COUNT(AUTO) 4.10 MIL/uL (4.0-5.2); RED CELL DISTRIBUTION WIDTH 29.7 % (11.5-15.0)
[2025-01-14 04:41] LABS: ASPARTATE AMINOTRANSFERASE 26.0 U/L (15-37); CALCIUM, SERUM 9.8 mg/dL (8.5-10.1); CREATININE 1.1 mg/dL (0.6-1.3); PHOSPHORUS 2.6 mg/dL (2.5-4.9); SODIUM SERUM 137.0 mmol/L (136-145); TOTAL PROTEIN, SERUM 5.9 g/dL (6.4-8.2); UREA NITROGEN, BLOOD 30.0 mg/dL (7-18)
[2025-01-14 05:29] LABS: EOSINOPHILS % (MANUAL) 8 % (0-4); LYMPHOCYTES % (MANUAL) 6 % (16-48); MONOCYTES % (MANUAL) 5 % (0-11.0); NEUTROPHILS % (MANUAL) 81 (42-76); NUCLEATED RED BLOOD CELLS 6.0 /100WBC (0.0-0.0)
[2025-01-14 05:30] LABS: PLATELET ESTIMATE INCREASED
[2025-01-14 10:35] LABS: ABG BASE EXCESS 7.1 mmol/L (-2.0-3.0); ABG OXYGEN SATURATION 98.8 % (94.0-98.0); ABG PCO2 47.1 mmHg (32.0-45.0); ABG PH 7.450 (7.350-7.450); ABG PO2 143.5 mmHg (83.0-108.0); ABG TOTAL HEMOGLOBIN 10.6 G/dL (12.0-16.0); FRACTIONATED INSPIRED OXYGEN 40.0 %; SET RATE, BG 6.0; SITE, ABG LEFT RADIAL; VT, ABG 400 mL
[2025-01-15] VITALS (29 sets, daily range): BP systolic 132–156; BP diastolic 80–105; TEMP 98.9–99.6; O2SAT 100
[2025-01-15 04:27] LABS: PLATELET COUNT (AUTO) 472 K/uL (150-450); RED BLOOD CELL COUNT(AUTO) 4.21 MIL/uL (4.0-5.2); RED CELL DISTRIBUTION WIDTH 29.6 % (11.5-15.0); WHITE BLOOD COUNT (AUTO) 19.8 K/uL (4.3-11.0)
[2025-01-15 04:39] LABS: ASPARTATE AMINOTRANSFERASE 30.0 U/L (15-37); CALCIUM, SERUM 9.5 mg/dL (8.5-10.1); CREATININE 1.0 mg/dL (0.6-1.3); FIBRINOGEN ACTIVITY 341.0 Mg/dL (213-485); INR 1.2 (0.91-1.10); PHOSPHORUS 2.4 mg/dL (2.5-4.9); SODIUM SERUM 137.0 mmol/L (136-145); TOTAL PROTEIN, SERUM 6.3 g/dL (6.4-8.2); UREA NITROGEN, BLOOD 29.0 mg/dL (7-18)
[2025-01-15 05:16] LABS: LYMPHOCYTES % (MANUAL) 10 % (16-48)
[2025-01-15 05:17] LABS: EOSINOPHILS % (MANUAL) 3 % (0-4); MONOCYTES % (MANUAL) 10 % (0-11.0); MYELOCYTES % 3 % (0-0); NEUTROPHILS % (MANUAL) 77 (42-76); NUCLEATED RED BLOOD CELLS 4.0 /100WBC (0.0-0.0); PLATELET ESTIMATE INCREASED
[2025-01-15 09:44] LABS: ABG BASE EXCESS 5.3 mmol/L (-2.0-3.0); ABG OXYGEN SATURATION 96.4 % (94.0-98.0); ABG PCO2 44.2 mmHg (32.0-45.0); ABG PH 7.448 (7.350-7.450); ABG PO2 82.0 mmHg (83.0-108.0); ABG TOTAL HEMOGLOBIN 10.7 G/dL (12.0-16.0); FRACTIONATED INSPIRED OXYGEN 40.0 %; SITE, ABG LEFT RADIAL
[2025-01-15] MEDS: POTASSIUM CHLORIDE 20 MEQ POWDER PACKET GT ONE (12:35)
[2025-01-15] MEDS: NEUTRA PHOS 1 POWD.PACKET NG ONE (16:26)
[2025-01-16] VITALS (48 sets, daily range): BP systolic 81–159; BP diastolic 58–113; TEMP 98.4–99; O2SAT 100
[2025-01-16 04:57] LABS: CALCIUM, SERUM 9.5 mg/dL (8.5-10.1); CREATININE 1.5 mg/dL (0.6-1.3); SODIUM SERUM 140.0 mmol/L (136-145); UREA NITROGEN, BLOOD 52.0 mg/dL (7-18)
[2025-01-16 05:01] LABS: PLATELET COUNT (AUTO) 474 K/uL (150-450); RED BLOOD CELL COUNT(AUTO) 3.91 MIL/uL (4.0-5.2); RED CELL DISTRIBUTION WIDTH 29.6 % (11.5-15.0); WHITE BLOOD COUNT (AUTO) 21.0 K/uL (4.3-11.0)
[2025-01-16 05:07] LABS: FIBRINOGEN ACTIVITY 312.0 Mg/dL (213-485); INR 1.2 (0.91-1.10)
[2025-01-16 05:53] LABS: EOSINOPHILS % (MANUAL) 4 % (0-4); LYMPHOCYTES % (MANUAL) 9 % (16-48); METAMYELOCYTES % 1 % (0-0); MONOCYTES % (MANUAL) 14 % (0-11.0); MYELOCYTES % 4 % (0-0); NEUTROPHILS % (MANUAL) 73 (42-76)
[2025-01-16 05:54] LABS: NUCLEATED RED BLOOD CELLS 2.0 /100WBC (0.0-0.0); PLATELET ESTIMATE INCREASED
[2025-01-16] MEDS: DOXYCYCLINE HYCLATE (100 MG) 100 MG TABLET GT SCH (14:36)
[2025-01-16] MEDS: DAKINS QUARTER STRENGTH (0.125%) 480 ML BOTTLE TOP SCH (15:12)
[2025-01-16] MEDS: MEROPENEM 500 MG in IV NS 0.9% 50 ML IV SCH (16:42)
[2025-01-17] VITALS (79 sets, daily range): BP systolic 113–151; BP diastolic 76–106; TEMP 98–99.1; O2SAT 100
[2025-01-17 04:55] LABS: CALCIUM, SERUM 9.1 mg/dL (8.5-10.1); CREATININE 1.0 mg/dL (0.6-1.3); SODIUM SERUM 141.0 mmol/L (136-145); UREA NITROGEN, BLOOD 32.0 mg/dL (7-18)
[2025-01-17] MEDS: POTASSIUM CHLORIDE 20 MEQ POWDER PACKET NG SCH (08:16)
[2025-01-17] MEDS: THERAHONEY GEL 1.5 OZ TUBE TP SCH (13:22)
[2025-01-18] VITALS (65 sets, daily range): BP systolic 119–153; BP diastolic 76–107; TEMP 98.2–99.8; O2SAT 99–100
[2025-01-18 04:59] LABS: CALCIUM, SERUM 8.8 mg/dL (8.5-10.1); CREATININE 0.9 mg/dL (0.6-1.3); SODIUM SERUM 137.0 mmol/L (136-145); UREA NITROGEN, BLOOD 28.0 mg/dL (7-18)
[2025-01-18 08:35] LABS: PLATELET COUNT (AUTO) 499 K/uL (150-450); RED BLOOD CELL COUNT(AUTO) 3.51 MIL/uL (4.0-5.2); RED CELL DISTRIBUTION WIDTH 29.3 % (11.5-15.0); WHITE BLOOD COUNT (AUTO) 17.7 K/uL (4.3-11.0)
[2025-01-18] MEDS: POTASSIUM CHLORIDE 20 MEQ POWDER PACKET GT ONE (10:05)
[2025-01-18] MEDS: PROSOURCE / PROSTAT (PYXIS) 30 ML UDC GT SCH (10:24)
[2025-01-18 10:48] LABS: EOSINOPHILS % (MANUAL) 6 % (0-4); LYMPHOCYTES % (MANUAL) 9 % (16-48); MONOCYTES % (MANUAL) 15 % (0-11.0); NEUTROPHILS % (MANUAL) 70 (42-76); PLATELET ESTIMATE ADEQUATE
[2025-01-19] VITALS (43 sets, daily range): BP systolic 84–152; BP diastolic 56–100; TEMP 98.2–98.8; O2SAT 98–100
[2025-01-19 04:39] LABS: PLATELET COUNT (AUTO) 552 K/uL (150-450); RED BLOOD CELL COUNT(AUTO) 3.60 MIL/uL (4.0-5.2); RED CELL DISTRIBUTION WIDTH 29.8 % (11.5-15.0)
[2025-01-19 04:44] LABS: CALCIUM, SERUM 9.4 mg/dL (8.5-10.1); CREATININE 0.9 mg/dL (0.6-1.3); SODIUM SERUM 140.0 mmol/L (136-145); UREA NITROGEN, BLOOD 32.0 mg/dL (7-18)
[2025-01-19 05:01] LABS: FIBRINOGEN ACTIVITY 375.0 Mg/dL (213-485); INR 1.2 (0.91-1.10)
[2025-01-19 05:24] LABS: EOSINOPHILS % (MANUAL) 8 % (0-4); LYMPHOCYTES % (MANUAL) 6 % (16-48); MONOCYTES % (MANUAL) 18 % (0-11.0); NEUTROPHILS % (MANUAL) 68 (42-76); PLATELET ESTIMATE INCREASED
[2025-01-19 05:41] LABS: WHITE BLOOD COUNT (AUTO) 15.9 K/uL (4.3-11.0)
[2025-01-20] VITALS (45 sets, daily range): BP systolic 94–145; BP diastolic 67–97; TEMP 97.9–98.8; O2SAT 91–100
[2025-01-20 04:15] LABS: PLATELET COUNT (AUTO) 564 K/uL (150-450); RED BLOOD CELL COUNT(AUTO) 3.29 MIL/uL (4.0-5.2); RED CELL DISTRIBUTION WIDTH 30.2 % (11.5-15.0); WHITE BLOOD COUNT (AUTO) 15.6 K/uL (4.3-11.0)
[2025-01-20 04:36] LABS: CALCIUM, SERUM 9.1 mg/dL (8.5-10.1); CREATININE 0.7 mg/dL (0.6-1.3); SODIUM SERUM 139.0 mmol/L (136-145); UREA NITROGEN, BLOOD 26.0 mg/dL (7-18)
[2025-01-20 05:18] LABS: EOSINOPHILS % (MANUAL) 3 % (0-4); LYMPHOCYTES % (MANUAL) 12 % (16-48); METAMYELOCYTES % 1 % (0-0); MONOCYTES % (MANUAL) 19 % (0-11.0); NEUTROPHILS % (MANUAL) 65 (42-76); PLATELET ESTIMATE INCREASED
[2025-01-20] MEDS: ACETAMINOPHEN 325 MG TABLET PO ONE (10:30)
[2025-01-20] MEDS: SOD FERRIC GLUC 125 MG in IV NS 0.9% 100 ML IV SCH (14:52)
[2025-01-21] VITALS (28 sets, daily range): BP systolic 95–150; BP diastolic 63–103; TEMP 97.9–98.3; O2SAT 95–100
[2025-01-21 04:39] LABS: PLATELET COUNT (AUTO) 590 K/uL (150-450); RED BLOOD CELL COUNT(AUTO) 3.81 MIL/uL (4.0-5.2); RED CELL DISTRIBUTION WIDTH 28.2 % (11.5-15.0); WHITE BLOOD COUNT (AUTO) 16.4 K/uL (4.3-11.0)
[2025-01-21 04:50] LABS: CALCIUM, SERUM 9.6 mg/dL (8.5-10.1); CREATININE 0.8 mg/dL (0.6-1.3); SODIUM SERUM 145.0 mmol/L (136-145); UREA NITROGEN, BLOOD 31.0 mg/dL (7-18)
[2025-01-21 05:37] LABS: EOSINOPHILS % (MANUAL) 5 % (0-4); LYMPHOCYTES % (MANUAL) 6 % (16-48); MONOCYTES % (MANUAL) 20 % (0-11.0); NEUTROPHILS % (MANUAL) 68 (42-76); NUCLEATED RED BLOOD CELLS 7.0 /100WBC (0.0-0.0); PLATELET ESTIMATE INCREASED
[2025-01-21 05:38] LABS: MYELOCYTES % 1 % (0-0)
[2025-01-21] MEDS ORDERED: DEXTROSE 50%-WATER 50 ML DISP.SYRIN IVP PRN ×2 (06:00)
[2025-01-22] VITALS (59 sets, daily range): BP systolic 78–147; BP diastolic 46–105; TEMP 98–98.2; O2SAT 91–100
[2025-01-22 04:43] LABS: PLATELET COUNT (AUTO) 681 K/uL (150-450); RED BLOOD CELL COUNT(AUTO) 4.07 MIL/uL (4.0-5.2); RED CELL DISTRIBUTION WIDTH 28.9 % (11.5-15.0); WHITE BLOOD COUNT (AUTO) 17.1 K/uL (4.3-11.0)
[2025-01-22 04:51] LABS: CALCIUM, SERUM 10.3 mg/dL (8.5-10.1); CREATININE 1.0 mg/dL (0.6-1.3); SODIUM SERUM 145.0 mmol/L (136-145); UREA NITROGEN, BLOOD 34.0 mg/dL (7-18)
[2025-01-22 05:14] LABS: EOSINOPHILS % (MANUAL) 1 % (0-4); LYMPHOCYTES % (MANUAL) 8 % (16-48); MONOCYTES % (MANUAL) 15 % (0-11.0); MYELOCYTES % 1 % (0-0); NEUTROPHILS % (MANUAL) 75 (42-76)
[2025-01-22 05:15] LABS: NUCLEATED RED BLOOD CELLS 7.0 /100WBC (0.0-0.0); PLATELET ESTIMATE INCREASED
[2025-01-23] VITALS (80 sets, daily range): BP systolic 86–151; BP diastolic 49–109; TEMP 98.4–99.8; O2SAT 99–100
[2025-01-23 05:06] LABS: CALCIUM, SERUM 9.7 mg/dL (8.5-10.1); CREATININE 1.1 mg/dL (0.6-1.3); SODIUM SERUM 142.0 mmol/L (136-145); UREA NITROGEN, BLOOD 41.0 mg/dL (7-18)
[2025-01-23 05:14] LABS: PLATELET COUNT (AUTO) 664 K/uL (150-450); RED BLOOD CELL COUNT(AUTO) 4.30 MIL/uL (4.0-5.2); RED CELL DISTRIBUTION WIDTH 29.5 % (11.5-15.0); WHITE BLOOD COUNT (AUTO) 21.2 K/uL (4.3-11.0)
[2025-01-23 06:04] LABS: LYMPHOCYTES % (MANUAL) 5 % (16-48); NEUTROPHILS % (MANUAL) 76 (42-76); NUCLEATED RED BLOOD CELLS 7.0 /100WBC (0.0-0.0)
[2025-01-23 06:05] LABS: BASOPHILS % (MANUAL) 1 % (0.0-2.0); EOSINOPHILS % (MANUAL) 5 % (0-4); MONOCYTES % (MANUAL) 13 % (0-11.0); PLATELET ESTIMATE INCREASED
[2025-01-23] MEDS: POTASSIUM CL. PREMIX PERIPHER. 50 ML IV SCH (06:16)
[2025-01-23] MEDS: POTASSIUM CHLORIDE 20 MEQ POWDER PACKET GT SCH (11:45)
[2025-01-23] MEDS: QUETIAPINE FUMARATE 100 MG TABLET GT SCH (22:02)
[2025-01-24] VITALS (25 sets, daily range): BP systolic 113–147; BP diastolic 83–100; TEMP 98.6–102.2; O2SAT 98–100
[2025-01-24 12:02] LABS: PLATELET COUNT (AUTO) 633 K/uL (150-450); RED BLOOD CELL COUNT(AUTO) 3.73 MIL/uL (4.0-5.2); RED CELL DISTRIBUTION WIDTH 29.8 % (11.5-15.0); WHITE BLOOD COUNT (AUTO) 25.3 K/uL (4.3-11.0)
[2025-01-24 12:43] LABS: FIBRINOGEN ACTIVITY 366.0 Mg/dL (213-485); INR 1.25 (0.91-1.10)
[2025-01-24 13:03] LABS: ASPARTATE AMINOTRANSFERASE 100.0 U/L (15-37); CALCIUM, SERUM 10.0 mg/dL (8.5-10.1); CREATININE 1.9 mg/dL (0.6-1.3); PHOSPHORUS 3.9 mg/dL (2.5-4.9); SODIUM SERUM 143.0 mmol/L (136-145); TOTAL PROTEIN, SERUM 7.0 g/dL (6.4-8.2)
[2025-01-24 13:25] LABS: UREA NITROGEN, BLOOD 95.0 mg/dL (7-18)
[2025-01-24 14:16] LABS: BAND % (MANUAL) 1 % (0.0-5.0); EOSINOPHILS % (MANUAL) 1 % (0-4); LYMPHOCYTES % (MANUAL) 12 % (16-48); MONOCYTES % (MANUAL) 9 % (0-11.0); NEUTROPHILS % (MANUAL) 77 (42-76)
[2025-01-24 14:17] LABS: PLATELET ESTIMATE INCREASED
[2025-01-24] MEDS: DAKINS QUARTER STRENGTH (0.125%) 480 ML BOTTLE TOP SCH (17:20)
[2025-01-25] VITALS (23 sets, daily range): BP systolic 111–145; BP diastolic 83–108; TEMP 98.5–99.9; O2SAT 99–100
[2025-01-25 05:26] LABS: PLATELET COUNT (AUTO) 599 K/uL (150-450); RED BLOOD CELL COUNT(AUTO) 3.77 MIL/uL (4.0-5.2); RED CELL DISTRIBUTION WIDTH 29.8 % (11.5-15.0); WHITE BLOOD COUNT (AUTO) 22.8 K/uL (4.3-11.0)
[2025-01-25 05:34] LABS: FIBRINOGEN ACTIVITY 384.0 Mg/dL (213-485); INR 1.19 (0.91-1.10)
[2025-01-25 05:36] LABS: CALCIUM, SERUM 9.7 mg/dL (8.5-10.1); CREATININE 1.1 mg/dL (0.6-1.3); SODIUM SERUM 144.0 mmol/L (136-145); UREA NITROGEN, BLOOD 50.0 mg/dL (7-18)
[2025-01-25 06:22] LABS: EOSINOPHILS % (MANUAL) 6 % (0-4); LYMPHOCYTES % (MANUAL) 4 % (16-48); MONOCYTES % (MANUAL) 13 % (0-11.0); NEUTROPHILS % (MANUAL) 77 (42-76); NUCLEATED RED BLOOD CELLS 3.0 /100WBC (0.0-0.0); PLATELET ESTIMATE INCREASED
[2025-01-25] MEDS ORDERED: IV NS 0.9% 250 ML IV PRN (16:30)
[2025-01-26] VITALS (40 sets, daily range): BP systolic 127–156; BP diastolic 56–111; TEMP 99.5–100.2; O2SAT 99–100
[2025-01-26 04:44] LABS: PLATELET COUNT (AUTO) 666 K/uL (150-450); RED BLOOD CELL COUNT(AUTO) 3.98 MIL/uL (4.0-5.2); RED CELL DISTRIBUTION WIDTH 30.2 % (11.5-15.0); WHITE BLOOD COUNT (AUTO) 20.7 K/uL (4.3-11.0)
[2025-01-26 05:04] LABS: CALCIUM, SERUM 10.2 mg/dL (8.5-10.1); CREATININE 1.1 mg/dL (0.6-1.3); PHOSPHORUS 4.1 mg/dL (2.5-4.9); SODIUM SERUM 140.0 mmol/L (136-145); UREA NITROGEN, BLOOD 42.0 mg/dL (7-18)
[2025-01-26 06:22] LABS: EOSINOPHILS % (MANUAL) 1 % (0-4); LYMPHOCYTES % (MANUAL) 5 % (16-48); MONOCYTES % (MANUAL) 10 % (0-11.0); NEUTROPHILS % (MANUAL) 84 (42-76)
[2025-01-26 06:23] LABS: PLATELET ESTIMATE INCREASED
[2025-01-26] MEDS: POTASSIUM CHLORIDE 20 MEQ POWDER PACKET NG SCH (12:11)
[2025-01-26] MEDS ORDERED: BLOOD SUGAR DIAGNOSTIC 1 EACH STRIP VI SCH (13:30)
[2025-01-26] MEDS ORDERED: TRAMADOL HCL 50 MG TABLET PO PRN (13:30)
[2025-01-26] MEDS ORDERED: DEXTROSE 50%-WATER 50 ML DISP.SYRIN IV PRN (13:30)
[2025-01-26] MEDS ORDERED: *INSULIN REGULAR(HUMULIN R)HUM 100 UNIT/ML VIAL SQ PRN (13:30)
[2025-01-26] MEDS ORDERED: INSULIN REGULAR, HUMAN 100 UNIT/ML 3 ML VIAL SQ PRN (13:30)
[2025-01-27] VITALS (44 sets, daily range): BP systolic 123–159; BP diastolic 70–127; TEMP 99.5–100.7; O2SAT 100
[2025-01-27 05:10] LABS: PLATELET COUNT (AUTO) 710 K/uL (150-450); RED BLOOD CELL COUNT(AUTO) 4.31 MIL/uL (4.0-5.2); RED CELL DISTRIBUTION WIDTH 29.8 % (11.5-15.0)
[2025-01-27 05:17] LABS: CALCIUM, SERUM 10.1 mg/dL (8.5-10.1); CREATININE 1.0 mg/dL (0.6-1.3); PHOSPHORUS 4.4 mg/dL (2.5-4.9); SODIUM SERUM 137.0 mmol/L (136-145); UREA NITROGEN, BLOOD 40.0 mg/dL (7-18)
[2025-01-27 05:46] LABS: LYMPHOCYTES % (MANUAL) 7 % (16-48); MONOCYTES % (MANUAL) 12 % (0-11.0); NEUTROPHILS % (MANUAL) 81 (42-76); PLATELET ESTIMATE INCREASED
[2025-01-27 05:50] LABS: WHITE BLOOD COUNT (AUTO) 16.2 K/uL (4.3-11.0)
[2025-01-27] MEDS: LIDOCAINE 2%-EPI 1:100,000 30 ML VIAL IJ ONE (09:48)
[2025-01-28] VITALS (39 sets, daily range): BP systolic 89–159; BP diastolic 59–110; TEMP 97.9–100.6; O2SAT 100
[2025-01-28 05:54] LABS: CALCIUM, SERUM 10.5 mg/dL (8.5-10.1); CREATININE 1.7 mg/dL (0.6-1.3); PHOSPHORUS 7.5 mg/dL (2.5-4.9); SODIUM SERUM 135.0 mmol/L (136-145); UREA NITROGEN, BLOOD 76.0 mg/dL (7-18)
[2025-01-28 08:43] LABS: PLATELET COUNT (AUTO) 677 K/uL (150-450); RED BLOOD CELL COUNT(AUTO) 5.33 MIL/uL (4.0-5.2); RED CELL DISTRIBUTION WIDTH 31.5 % (11.5-15.0); WHITE BLOOD COUNT (AUTO) 18.5 K/uL (4.3-11.0)
[2025-01-28 11:20] LABS: FIBRINOGEN ACTIVITY 293.0 Mg/dL (213-485); INR 1.16 (0.91-1.10)
[2025-01-28] MEDS: QUETIAPINE FUMARATE 100 MG TABLET GT PRN (15:31)
[2025-01-29] VITALS (29 sets, daily range): BP systolic 121–161; BP diastolic 83–119; TEMP 98.4–100.3; O2SAT 99–100
[2025-01-29 05:39] LABS: PLATELET COUNT (AUTO) 634 K/uL (150-450); RED BLOOD CELL COUNT(AUTO) 4.13 MIL/uL (4.0-5.2); RED CELL DISTRIBUTION WIDTH 30.9 % (11.5-15.0); WHITE BLOOD COUNT (AUTO) 21.1 K/uL (4.3-11.0)
[2025-01-29 06:03] LABS: FIBRINOGEN ACTIVITY 349.0 Mg/dL (213-485); INR 1.16 (0.91-1.10)
[2025-01-29 06:58] LABS: LYMPHOCYTES % (MANUAL) 3 % (16-48); MONOCYTES % (MANUAL) 6 % (0-11.0); NEUTROPHILS % (MANUAL) 91 (42-76); PLATELET ESTIMATE INCREASED
[2025-01-29 11:41] LABS: CALCIUM, SERUM 9.8 mg/dL (8.5-10.1); CREATININE 1.4 mg/dL (0.6-1.3); PHOSPHORUS 6.4 mg/dL (2.5-4.9); SODIUM SERUM 138.0 mmol/L (136-145); UREA NITROGEN, BLOOD 60.0 mg/dL (7-18)
[2025-01-30] VITALS (25 sets, daily range): BP systolic 103–165; BP diastolic 86–114; TEMP 97.4–100.1; O2SAT 100
[2025-01-30 04:27] LABS: PLATELET COUNT (AUTO) 665 K/uL (150-450); RED BLOOD CELL COUNT(AUTO) 4.29 MIL/uL (4.0-5.2); RED CELL DISTRIBUTION WIDTH 30.4 % (11.5-15.0); WHITE BLOOD COUNT (AUTO) 19.7 K/uL (4.3-11.0)
[2025-01-30 04:42] LABS: CALCIUM, SERUM 9.8 mg/dL (8.5-10.1); CREATININE 1.2 mg/dL (0.6-1.3); PHOSPHORUS 4.1 mg/dL (2.5-4.9); SODIUM SERUM 136.0 mmol/L (136-145); UREA NITROGEN, BLOOD 41.0 mg/dL (7-18)
[2025-01-30 06:27] LABS: EOSINOPHILS % (MANUAL) 1 % (0-4); LYMPHOCYTES % (MANUAL) 2 % (16-48); MONOCYTES % (MANUAL) 10 % (0-11.0); NEUTROPHILS % (MANUAL) 87 (42-76); NUCLEATED RED BLOOD CELLS 4.0 /100WBC (0.0-0.0); PLATELET ESTIMATE INCREASED
[2025-01-31] VITALS (30 sets, daily range): BP systolic 73–160; BP diastolic 58–112; TEMP 99–99.9; O2SAT 99–100
[2025-01-31 03:21] LABS: PLATELET COUNT (AUTO) 702 K/uL (150-450); RED BLOOD CELL COUNT(AUTO) 4.58 MIL/uL (4.0-5.2); RED CELL DISTRIBUTION WIDTH 29.4 % (11.5-15.0); WHITE BLOOD COUNT (AUTO) 18.0 K/uL (4.3-11.0)
[2025-01-31 03:51] LABS: LYMPHOCYTES % (MANUAL) 3 % (16-48); MONOCYTES % (MANUAL) 9 % (0-11.0); NEUTROPHILS % (MANUAL) 88 (42-76); PLATELET ESTIMATE INCREASED
[2025-01-31 03:55] LABS: CALCIUM, SERUM 9.9 mg/dL (8.5-10.1); CREATININE 1.0 mg/dL (0.6-1.3); PHOSPHORUS 4.0 mg/dL (2.5-4.9); SODIUM SERUM 143.0 mmol/L (136-145); UREA NITROGEN, BLOOD 33.0 mg/dL (7-18)
[2025-01-31] MEDS: POTASSIUM CL. PREMIX PERIPHER. 50 ML IV SCH (07:40)
[2025-01-31] MEDS: POTASSIUM CHLORIDE 20 MEQ POWDER PACKET GT ONE (11:26)
[2025-01-31] MEDS: NEPRO 1,000 ML BOTTLE GT PRN (18:35)
[2025-02-01] VITALS (37 sets, daily range): BP systolic 73–160; BP diastolic 25–110; TEMP 97.7–101; O2SAT 95–100
[2025-02-01 05:17] LABS: PLATELET COUNT (AUTO) 653 K/uL (150-450); RED BLOOD CELL COUNT(AUTO) 4.29 MIL/uL (4.0-5.2); RED CELL DISTRIBUTION WIDTH 29.2 % (11.5-15.0)
[2025-02-01 05:27] LABS: CALCIUM, SERUM 9.7 mg/dL (8.5-10.1); CREATININE 0.9 mg/dL (0.6-1.3); PHOSPHORUS 3.5 mg/dL (2.5-4.9); SODIUM SERUM 139.0 mmol/L (136-145); UREA NITROGEN, BLOOD 39.0 mg/dL (7-18)
[2025-02-01 05:45] LABS: FIBRINOGEN ACTIVITY 341.0 Mg/dL (213-485); INR 1.19 (0.91-1.10)
[2025-02-01 05:54] LABS: BAND % (MANUAL) 1 % (0.0-5.0); LYMPHOCYTES % (MANUAL) 2 % (16-48); METAMYELOCYTES % 1 % (0-0); MONOCYTES % (MANUAL) 3 % (0-11.0); NEUTROPHILS % (MANUAL) 93 (42-76); PLATELET ESTIMATE INCREASED
[2025-02-01 05:58] LABS: WHITE BLOOD COUNT (AUTO) 15.9 K/uL (4.3-11.0)
[2025-02-02] VITALS (20 sets, daily range): BP systolic 138–157; BP diastolic 99–112; TEMP 99–100.6; O2SAT 99–100
[2025-02-02 04:02] LABS: PLATELET COUNT (AUTO) 590 K/uL (150-450); RED BLOOD CELL COUNT(AUTO) 4.66 MIL/uL (4.0-5.2); RED CELL DISTRIBUTION WIDTH 28.5 % (11.5-15.0)
[2025-02-02 04:14] LABS: ASPARTATE AMINOTRANSFERASE 68.0 U/L (15-37); CALCIUM, SERUM 10.3 mg/dL (8.5-10.1); CREATININE 1.5 mg/dL (0.6-1.3); PHOSPHORUS 5.7 mg/dL (2.5-4.9); SODIUM SERUM 140.0 mmol/L (136-145); TOTAL PROTEIN, SERUM 7.7 g/dL (6.4-8.2)
[2025-02-02 04:16] LABS: UREA NITROGEN, BLOOD 92.0 mg/dL (7-18)
[2025-02-02 05:15] LABS: LYMPHOCYTES % (MANUAL) 5 % (16-48); MONOCYTES % (MANUAL) 7 % (0-11.0); NEUTROPHILS % (MANUAL) 88 (42-76)
[2025-02-02 05:16] LABS: PLATELET ESTIMATE ADEQUATE
[2025-02-02 05:20] LABS: WHITE BLOOD COUNT (AUTO) 15.3 K/uL (4.3-11.0)
[2025-02-02] MEDS: ARGININE/GLUTAMINE/CALCIUM BMB 1 EACH POWD.PACK PEG SCH (14:36)
[2025-02-03] VITALS (11 sets, daily range): BP systolic 155–190; BP diastolic 61–110; TEMP 98.4–101.6; O2SAT 100
[2025-02-03 07:08] LABS: PLATELET COUNT (AUTO) 559 K/uL (150-450); RED BLOOD CELL COUNT(AUTO) 4.70 MIL/uL (4.0-5.2); RED CELL DISTRIBUTION WIDTH 28.4 % (11.5-15.0); WHITE BLOOD COUNT (AUTO) 17.1 K/uL (4.3-11.0)
[2025-02-03 07:27] LABS: ASPARTATE AMINOTRANSFERASE 55.0 U/L (15-37); CALCIUM, SERUM 10.6 mg/dL (8.5-10.1); CREATININE 1.2 mg/dL (0.6-1.3); PHOSPHORUS 4.7 mg/dL (2.5-4.9); SODIUM SERUM 141.0 mmol/L (136-145); TOTAL PROTEIN, SERUM 8.3 g/dL (6.4-8.2); UREA NITROGEN, BLOOD 59.0 mg/dL (7-18)
[2025-02-03] MEDS: METOPROLOL TARTRATE INJ 5 MG/5 ML AMPUL IVP ONE (13:10)
[2025-02-04] VITALS: BP 158/99; TEMP 98.6; O2SAT 100
== END 2025-02-04 01:42 | disposition left against medical advice (07) | DRG 4 ==
LOC: ER 14:36 → ICU 19:40 → TELE1 02-02 14:18 → TELE-TD 02-02 14:20 → TELE1 02-03 09:26
PROVIDERS: ADMIT Nurse Practitioner Family; ATTEND Student in an Organized Health Care Education/Training Program
PROC: 5A09457 Assistance with Respiratory Ventilation, 24-96 Consecutive Hours, Continuous Positive Airway Pressure (ICD-10-PCS; 2024-11-04)
PROC: 5A1955Z Respiratory Ventilation, Greater than 96 Consecutive Hours (ICD-10-PCS; principal; 2024-11-06)
PROC: 0BH17EZ Insertion of Endotracheal Airway into Trachea, Via Natural or Artificial Opening (ICD-10-PCS; 2024-11-06)
PROC: 5A1D70Z Performance of Urinary Filtration, Intermittent, Less than 6 Hours Per Day (ICD-10-PCS; 2024-11-06)
PROC: 06HY33Z Insertion of Infusion Device into Lower Vein, Percutaneous Approach (ICD-10-PCS; 2024-11-07)
PROC: 30233N1 Transfusion of Nonautologous Red Blood Cells into Peripheral Vein, Percutaneous Approach (ICD-10-PCS; 2024-11-09)
PROC: 05HM33Z Insertion of Infusion Device into Right Internal Jugular Vein, Percutaneous Approach (ICD-10-PCS; 2024-11-19)
PROC: B543ZZA Ultrasonography of Right Jugular Veins, Guidance (ICD-10-PCS; 2024-11-19)
PROC: 05HB33Z Insertion of Infusion Device into Right Basilic Vein, Percutaneous Approach (ICD-10-PCS; 2024-11-21)
PROC: 5A09357 Assistance with Respiratory Ventilation, Less than 24 Consecutive Hours, Continuous Positive Airway Pressure (ICD-10-PCS; 2024-11-22)
PROC: 0BH17EZ Insertion of Endotracheal Airway into Trachea, Via Natural or Artificial Opening (ICD-10-PCS; 2024-11-23)
PROC: 5A1955Z Respiratory Ventilation, Greater than 96 Consecutive Hours (ICD-10-PCS; 2024-11-23)
PROC: 0B113F4 Bypass Trachea to Cutaneous with Tracheostomy Device, Percutaneous Approach (ICD-10-PCS; 2024-11-29)
PROC: 0BJ08ZZ Inspection of Tracheobronchial Tree, Via Natural or Artificial Opening Endoscopic (ICD-10-PCS; 2024-11-29)
PROC: 0BJ08ZZ Inspection of Tracheobronchial Tree, Via Natural or Artificial Opening Endoscopic (ICD-10-PCS; 2024-11-29)
PROC: 30233M1 Transfusion of Nonautologous Plasma Cryoprecipitate into Peripheral Vein, Percutaneous Approach (ICD-10-PCS; 2024-11-30)
PROC: 0DH63UZ Insertion of Feeding Device into Stomach, Percutaneous Approach (ICD-10-PCS; 2024-12-01)
PROC: 30233K1 Transfusion of Nonautologous Frozen Plasma into Peripheral Vein, Percutaneous Approach (ICD-10-PCS; 2024-12-02)
PROC: 02HV33Z Insertion of Infusion Device into Superior Vena Cava, Percutaneous Approach (ICD-10-PCS; 2024-12-02)
PROC: B548ZZA Ultrasonography of Superior Vena Cava, Guidance (ICD-10-PCS; 2024-12-02)
PROC: 06HY33Z Insertion of Infusion Device into Lower Vein, Percutaneous Approach (ICD-10-PCS; 2024-12-09)
PROC: 05HM33Z Insertion of Infusion Device into Right Internal Jugular Vein, Percutaneous Approach (ICD-10-PCS; 2024-12-23)
PROC: 0DJ08ZZ Inspection of Upper Intestinal Tract, Via Natural or Artificial Opening Endoscopic (ICD-10-PCS; 2025-01-09)
PROC: 0DBN8ZX Excision of Sigmoid Colon, Via Natural or Artificial Opening Endoscopic, Diagnostic (ICD-10-PCS; 2025-01-10)
PROC: 0KBP0ZZ Excision of Left Hip Muscle, Open Approach (ICD-10-PCS; 2025-01-31)
PROC: 0QB10ZZ Excision of Sacrum, Open Approach (ICD-10-PCS; 2025-01-31)
DX: A41.1 Sepsis due to other specified staphylococcus (principal); R57.0 Cardiogenic shock; N17.0 Acute kidney failure with tubular necrosis; G72.81 Critical illness myopathy; E43 Unspecified severe protein-calorie malnutrition; G93.40 Encephalopathy, unspecified; I50.23 Acute on chronic systolic (congestive) heart failure; E83.39 Other disorders of phosphorus metabolism; J18.9 Pneumonia, unspecified organism; I42.0 Dilated cardiomyopathy; T80.211A Bloodstream infection due to central venous catheter, initial encounter; L89.224 Pressure ulcer of left hip, stage 4; L89.154 Pressure ulcer of sacral region, stage 4; Z99.2 Dependence on renal dialysis; N18.6 End stage renal disease; J96.21 Acute and chronic respiratory failure with hypoxia; I13.0 Hypertensive heart and chronic kidney disease with heart failure and stage 1 through stage 4 chronic kidney disease, or unspecified chronic kidney disease; E11.22 Type 2 diabetes mellitus with diabetic chronic kidney disease; D50.9 Iron deficiency anemia, unspecified; G40.909 Epilepsy, unspecified, not intractable, without status epilepticus; J44.9 Chronic obstructive pulmonary disease, unspecified; F19.11 Other psychoactive substance abuse, in remission; E44.1 Mild protein-calorie malnutrition; K76.0 Fatty (change of) liver, not elsewhere classified; L89.150 Pressure ulcer of sacral region, unstageable; J81.1 Chronic pulmonary edema; N18.9 Chronic kidney disease, unspecified; E87.20 Acidosis, unspecified; E87.1 Hypo-osmolality and hyponatremia; I25.5 Ischemic cardiomyopathy; D75.839 Thrombocytosis, unspecified; E78.5 Hyperlipidemia, unspecified; E83.42 Hypomagnesemia; E88.09 Other disorders of plasma-protein metabolism, not elsewhere classified; I21.A1 Myocardial infarction type 2; I42.8 Other cardiomyopathies; K29.70 Gastritis, unspecified, without bleeding; K31.84 Gastroparesis; L89.226 Pressure-induced deep tissue damage of left hip; L89.896 Pressure-induced deep tissue damage of other site; R13.10 Dysphagia, unspecified; R64 Cachexia; F17.210 Nicotine dependence, cigarettes, uncomplicated; E83.89 Other disorders of mineral metabolism; F41.9 Anxiety disorder, unspecified; M62.50 Muscle wasting and atrophy, not elsewhere classified, unspecified site; K52.9 Noninfective gastroenteritis and colitis, unspecified; L85.3 Xerosis cutis; J45.909 Unspecified asthma, uncomplicated; F41.1 Generalized anxiety disorder; L27.1 Localized skin eruption due to drugs and medicaments taken internally; F39 Unspecified mood [affective] disorder; D56.3 Thalassemia minor; E11.43 Type 2 diabetes mellitus with diabetic autonomic (poly)neuropathy; E87.5 Hyperkalemia; Y84.8 Other medical procedures as the cause of abnormal reaction of the patient, or of later complication, without mention of misadventure at the time of the procedure; Y82.8 Other medical devices associated with adverse incidents; Y92.230 Patient room in hospital as the place of occurrence of the external cause; Z88.0 Allergy status to penicillin; Z68.1 Body mass index [BMI] 19.9 or less, adult; S81.802A Unspecified open wound, left lower leg, initial encounter; S81.801A Unspecified open wound, right lower leg, initial encounter; X58.XXXA Exposure to other specified factors, initial encounter; Y93.9 Activity, unspecified; Y92.009 Unspecified place in unspecified non-institutional (private) residence as the place of occurrence of the external cause
CPT/HCPCS: 31720; 36410; 36415; 36569; 36600; 43246; 70450-TC; 71045-TC; 72192-TC; 74018; 76700-TC; 76770-TC; 80048-TC; 80053-TC; 80061-TC; 80076-TC; 80202-TC; 81001; 82272-TC; 82533; 82550-TC; 82570-TC; 82595; 82607-TC; 82728-TC; 82784; 82803-TC; 82962-TC; 83540-TC; 83605-TC; 83735-TC; 83880; 83970; 84100-TC; 84132-TC; 84155; 84165; 84300-TC; 84439-TC; 84443-TC; 84478-TC; 84484-TC; 84702-TC; 85025-TC; 85027-TC; 85045-TC; 85378-TC; 85385-TC; 85396; 85610-TC; 85652-TC; 85730-TC; 86225; 86235; 86317; 86334; 86704; 86705; 86706; 86709; 86709-TC; 86803; 86850-TC; 87040-TC; 87070-TC; 87081-TC; 87086-TC; 87186-TC; 87205-TC; 87340; 87536; 87806; 88305-TC; 90935-TC; 93307-TC; 93970-TC; 94002-TC; 94003-TC; 94640-TC; 94760-TC; 94799-TC; 97110-TC; 97112-TC; 97530-TC; 97535-TC; 99082-TC; A4216; A4217; A4223; A4623; A6213; A6223; A6253; A6254; A6403; A7526; A9560; A9563; C1752; G0378; J0330; J0692; J0885; J1100; J1171; J1200; J1250; J1308; J1364; J1644; J1815; J1938; J2060; J2185; J2248; J2250; J2405; J2470; J2765; J2916; J2919; J3010; J3373; J3374; J3430; J3465; J3475; J3480; J3490; J7030; J7040; J7050; J7060; P9012; P9016; P9017; P9047; Q9967